=== PATIENT | female | born 1940 | race Caucasian/White ===

== ENCOUNTER 2020-08-04 12:54 | Inpatient (IN) | payer MEDICARE ==
[~2020-08-04] VITALS: Ht 170.2 cm; Wt 85.0 kg
[2020-08-04] MEDS ORDERED: fentaNYL INJECTION 100 MCG/2 ML AMP ONE (12:57)
[2020-08-04] MEDS ORDERED: fentaNYL INJECTION 100 MCG/2 ML AMP IVP ONE ×2 (13:15→14:30)
--- NOTE | 2020-08-04 13:20 | ED Lower Extremity ---
General Chief Complaint: Trauma-Non Activation Stated Complaint: L HIP PAIN Nursing Triage Note: PT TO [facility] 2 BY [facility] WITH CC OF A FALL WHILE WALKING ACROSS THE YARD, LANDING ON GRASS, LANDED ON RT SIDE BUT PAIN IS IN THE LT HIP WITH PAIN RADIATING DOWN TO LT KNEE. DENIES LOC OR ANY OTHER PAIN. ALERT X'S 4. STATES HAVING BOTH OF HER COVID SHOTS. Nursing Sepsis Screen: No Definite Risk Source: patient Exam Limitations: no limitations History of Present Illness Date Seen by Provider: Aug 04, 2020 Time Seen by Provider: 13:00 Initial Comments To ER by [facility] with reports of left hip pain. She slipped on the ice and fell landing on the right hip but actually has left hip pain. She is from [place] but [facility] is on surgery/trauma diversion as they do not have a water supply. She takes no anticoagulation. She has a history of fibromyalgia hypertension and neuropathy. Last oral intake was at 10:30 AM. She is certain she did not hit her head. Onset: just prior to arrival Severity: moderate Pain/Injury Location: left hip Method of Injury: fell Modifying Factors: Worse With Movement Allergies and Home Medications Allergies Coded Allergies: morphine (Verified Allergy, Mild, 08/04/20) divalproex sodium (Verified Allergy, Unknown, 08/04/20) iodine (Verified Allergy, Unknown, 08/04/20) meloxicam (Verified Allergy, Unknown, 08/04/20) rosuvastatin (Verified Allergy, Unknown, 08/04/20) Patient Home Medication List Home Medication List Reviewed: Yes Review of Systems Constitutional: see HPI EENTM: see HPI Respiratory: no symptoms reported Cardiovascular: no symptoms reported Genitourinary: no symptoms reported Musculoskeletal: see HPI Skin: no symptoms reported Psychiatric/Neurological: No Symptoms Reported Past Jmhaodp-Zppssd-Kanbdh Hx Patient Social History Recent Infectious Disease Expo: No Physical Exam Vital Signs Vital Signs - First Documented 08/04/20 13:02 Temp 35.4 Pulse 83 Resp 20 B/P (MAP) 192/100 (130) Pulse Ox 96 O2 Delivery Room Air Capillary Refill : Less Than 3 Seconds Height, Weight, BMI Height: '" Weight: lbs. oz. kg; 26.00 BMI Method: General Appearance: WD/WN, other (alert and oreinted, pleasant) HEENT: PERRL/EOMI, normal ENT inspection Neck: non-tender, full range of motion Respiratory: no respiratory distress, no accessory muscle use Gastrointestinal: normal bowel sounds, non tender Hips: right hip non-tender, right hip normal inspection, right hip normal range of motion; left hip pain, left hip soft tissue tenderness Legs: bilateral leg non-tender, bilateral leg normal inspection, bilateral leg normal range of motion Knees: bilateral knee non-tender, bilateral knee normal inspection, bilateral knee normal range of motion Ankles: bilateral ankle non-tender, bilateral ankle normal inspection, bilateral ankle normal range of motion Feet: bilateral foot non-tender, bilateral foot normal inspection, bilateral foot normal range of motion Neurologic/Psychiatric: alert, normal mood/affect, oriented x 3 Skin: normal color, warm/dry Progress/Results/Core Measures Results/Orders Lab Results Laboratory Tests Test 08/04/20 13:15 Range/Units White Blood Count 8.0 4.3-11.0 10^3/uL Red Blood Count 4.35 3.80-5.11 10^6/uL Hemoglobin 13.5 11.5-16.0 g/dL Hematocrit 39 35-52 % Mean Corpuscular Volume 90 80-99 fL Mean Corpuscular Hemoglobin 31 25-34 pg Mean Corpuscular Hemoglobin Concent 34 32-36 g/dL Red Cell Distribution Width 12.0 10.0-14.5 % Platelet Count 256 130-400 10^3/uL Mean Platelet Volume 10.2 9.0-12.2 fL Immature Granulocyte % (Auto) 1 % Neutrophils (%) (Auto) 64 42-75 % Lymphocytes (%) (Auto) 28 12-44 % Monocytes (%) (Auto) 6 0-12 % Eosinophils (%) (Auto) 1 0-10 % Basophils (%) (Auto) 0 0-10 % Neutrophils # (Auto) 5.1 1.8-7.8 10^3/uL Lymphocytes # (Auto) 2.3 1.0-4.0 10^3/uL Monocytes # (Auto) 0.5 0.0-1.0 10^3/uL Eosinophils # (Auto) 0.1 0.0-0.3 10^3/uL Basophils # (Auto) 0.0 0.0-0.1 10^3/uL Immature Granulocyte # (Auto) 0.0 0.0-0.1 10^3/uL Prothrombin Time 13.4 12.2-14.7 SEC INR Comment 1.0 0.8-1.4 Sodium Level 139 135-145 MMOL/L Potassium Level 3.6 3.6-5.0 MMOL/L Chloride Level 105 98-107 MMOL/L Carbon Dioxide Level 22 21-32 MMOL/L Anion Gap 12 5-14 MMOL/L Blood Urea Nitrogen 11 7-18 MG/DL Creatinine 1.15 0.60-1.30 MG/DL Estimat Glomerular Filtration Rate 45 BUN/Creatinine Ratio 10 Glucose Level 118 H 70-105 MG/DL Calcium Level 8.4 L 8.5-10.1 MG/DL Corrected Calcium 8.7 8.5-10.1 MG/DL Total Bilirubin 0.4 0.1-1.0 MG/DL Aspartate Amino Transf (AST/SGOT) 19 5-34 U/L Alanine Aminotransferase (ALT/SGPT) 10 0-55 U/L Alkaline Phosphatase 76 40-136 U/L Total Protein 6.8 6.4-8.2 GM/DL Albumin 3.6 3.2-4.5 GM/DL My Orders Orders - NEHAL CHÁVEZ APRN Cbc With Automated Diff (08/04/20 13:02) Protime With Inr (08/04/20 13:02) Comprehensive Metabolic Panel (08/04/20 13:02) Sanchez Cath (08/04/20 13:02) Chest 1 View, Ap/Pa Only (08/04/20 13:02) Pelvis With Left Hip 2-3 Views (08/04/20 13:02) Fentanyl Injection (Sublimaze Injection (08/04/20 13:15) Ct Pelvis Wo (08/04/20 13:51) Medications Given in ED Current Medications Medications Dose Ordered Sig/Carli Route Start Time Stop Time Status Last Admin Dose Admin Fentanyl Citrate 50 mcg ONCE ONCE IVP 08/04/20 13:15 08/04/20 13:16 DC 08/04/20 13:09 50 MCG Vital Signs/I&O 08/04/20 08/04/20 13:02 13:09 Temp 35.4 35.4 Pulse 83 Resp 20 B/P (MAP) 192/100 (130) Pulse Ox 96 O2 Delivery Room Air Blood Pressure Mean: 130 Diagnostic Imaging Diagonstic Imaging: Xray Comments NAME: YUMIKO FRANKEL [facility] REC#: [id number] PT STATUS: REG ER : 1940 PHYSICIAN: NEHAL CHÁVEZ APRN ADMIT DATE: 08/04/20/ER Draft Date of Exam:08/04/20 PELVIS WITH LEFT HIP 2-3 VIEWS EXAMINATION: Pelvis and left hip. INDICATION: Hip pain. Single AP view of the pelvis and AP and crosstable lateral views of the left hip were obtained. There are no prior studies available for comparison. There is a slightly displaced fracture of the base of the left femoral neck. There is also a transverse irregular fracture line extending through the greater trochanter of the left femur. No other fracture or acute bony abnormality is appreciated. There is moderate degenerative disease of the hip and sacroiliac joints. The soft tissues are unremarkable for an acute abnormality. There are small orthopedic screws along the medial aspect of the left pubic symphysis and overlying the superior pubic ramus on the right. Surgical clips are also seen overlying the right sacrum. IMPRESSION: 1. There is a slightly displaced fracture of the left femoral neck as well as a transverse slightly displaced fracture of the greater trochanter of the left femur. If further evaluation of the extent of the injury to the femur is desired, then CT would be recommended. 2. There is no acute bony abnormality noted otherwise. 3. These results were discussed with Nehal Chávez APRN. Dictated on workstation # [id number] Dict: 08/04/20 1356 Trans: 08/04/20 1406 [facility] [id number] Interpreted by: WILIAM GONZALEZ MD Electronically signed by: Departure Communication (Admissions) Spoke with Dr. GARCIA, he would like a CT scan. Patient still reports that she landed on the right side. However I would suspect she landed on the left and then rolled to the right side. When EMS found her she was laying on the ice on her right side. Pain is well controlled as long as she does not move. Impression Primary Impression: Closed left hip fracture Disposition: ADMITTED INPATIENT Condition: Stable Admissions Decision to Admit Reason: Admit from ER (General) Decision to Admit/Date: Aug 04, 2020 Time/Decision to Admit Time: 14:15 NEHAL CHÁVEZ APRN Aug 04, 2020 13:20
[2020-08-04 13:34] LABS: BASOPHILS % (AUTO) 0 % (0-10); EOSINOPHILS # (AUTO) 0.1 10^3/uL (0.0-0.3); EOSINOPHILS % (AUTO) 1 % (0-10); HEMATOCRIT 39 % (35-52); HEMOGLOBIN 13.5 g/dL (11.5-16.0); LYMPHOCYTES # (AUTO) 2.3 10^3/uL (1.0-4.0); LYMPHOCYTES % (AUTO) 28 % (12-44); MEAN CORPUSCULAR HEMOGLOBIN 31 pg (25-34); MEAN CORPUSCULAR HGB CONC 34 g/dL (32-36); MEAN CORPUSCULAR VOLUME 90 fL (80-99); MEAN PLATELET VOLUME 10.2 fL (9.0-12.2); MONOCYTES # (AUTO) 0.5 10^3/uL (0.0-1.0); MONOCYTES % (AUTO) 6 % (0-12); NEUTROPHILS # (AUTO) 5.1 10^3/uL (1.8-7.8); NEUTROPHILS % (AUTO) 64 % (42-75); PLATELET COUNT 256 10^3/uL (130-400)
[2020-08-04 13:45] LABS: ALBUMIN 3.6 GM/DL (3.2-4.5); POTASSIUM 3.6 MMOL/L (3.6-5.0); PROTHROMBIN TIME PATIENT 13.4 SEC (12.2-14.7)
[2020-08-04 13:46] LABS: CALCIUM 8.4 MG/DL (8.5-10.1)
[2020-08-04 13:48] LABS: TOTAL PROTEIN 6.8 GM/DL (6.4-8.2)
[2020-08-04 13:49] LABS: BILIRUBIN,TOTAL 0.4 MG/DL (0.1-1.0)
[2020-08-04 13:51] LABS: CREATININE SERUM 1.15 MG/DL (0.60-1.30)
--- NOTE | 2020-08-04 14:00 | Diagnostic Imaging Report ---
INDICATION: Fall, preop for left hip fracture Frontal chest at 0143 p.m. Heart and mediastinal silhouette are normal in appearance. Lungs are clear. There is no pneumothorax or pleural fluid. There is no overt bony abnormality in the chest. IMPRESSION: Negative chest. Dictated by: Dictated on workstation # [id number]
--- NOTE | 2020-08-04 14:06 | Diagnostic Imaging Report ---
EXAMINATION: Pelvis and left hip. INDICATION: Hip pain. Single AP view of the pelvis and AP and crosstable lateral views of the left hip were obtained. There are no prior studies available for comparison. There is a slightly displaced fracture of the base of the left femoral neck. There is also a transverse irregular fracture line extending through the greater trochanter of the left femur. No other fracture or acute bony abnormality is appreciated. There is moderate degenerative disease of the hip and sacroiliac joints. The soft tissues are unremarkable for an acute abnormality. There are small orthopedic screws along the medial aspect of the left pubic symphysis and overlying the superior pubic ramus on the right. Surgical clips are also seen overlying the right sacrum. IMPRESSION: 1. There is a slightly displaced fracture of the left femoral neck as well as a transverse slightly displaced fracture of the greater trochanter of the left femur. If further evaluation of the extent of the injury to the femur is desired, then CT would be recommended. 2. There is no acute bony abnormality noted otherwise. 3. These results were discussed with Cheng Chávez APRN. Dictated by: Dictated on workstation # [id number]
--- NOTE | 2020-08-04 14:24 | Diagnostic Imaging Report ---
PROCEDURE: CT pelvis without contrast. TECHNIQUE: Multiple contiguous axial images were obtained through the pelvis without the use of intravenous contrast. Sagittal and coronal reformations were performed. Auto Exposure Controls were utilized during the CT exam to meet ALARA standards for radiation dose reduction. INDICATION: Fall FINDINGS: There is varus angulation associated with the fracture through the base of the femoral neck extending through the greater trochanter. There is no dislocation of the femoral head. There is osteoarthritic changes to the bilateral hips. Superior-inferior pubic rami and acetabulum intact. The right femoral head and neck nonacute. There is no symphyseal diastases. No intra or extra peritoneal pelvic hematoma. There are arthritic changes to the SI joints. The demineralized sacrum showed no acute or chronic fracture. There is degenerative disease to the visualized lower lumbar spine. The iliac bones are intact. IMPRESSION: Base neck and intertrochanteric left hip fracture with varus angulation without dislocation. No intraperitoneal or extraperitoneal pelvic hematoma. Underlying osteoporosis noted. No other fracture. Dictated by: Dictated on workstation # [id number]
[2020-08-04 16:00] VITALS: BP 179/86
[2020-08-04] MEDS ORDERED: ONDANSETRON 4 MG/2 ML (SDV) Z0FRAN IVP PRN (16:15)
--- NOTE | 2020-08-04 16:52 | History & Physicial ---
History of Present Illness History of Present Illness Reason for visit/HPI Left hip pain after fall Date of Admission Aug 04, 2020 at 14:15 Date Seen by a Provider: Aug 04, 2020 Time Seen by a Provider: 16:47 I consulted on this patient on 08/04/20 16:47 Attending Physician Doris Anderson MD Admitting Physician Dr. Sergey Ferris Consult Allergies and Home Medications Allergies Coded Allergies: morphine (Verified Allergy, Mild, 08/04/20) divalproex sodium (Verified Allergy, Unknown, 08/04/20) iodine (Verified Allergy, Unknown, 08/04/20) meloxicam (Verified Allergy, Unknown, 08/04/20) rosuvastatin (Verified Allergy, Unknown, 08/04/20) Patient Home Medication List Home Medication List Reviewed: Yes (Losartan, Gabapentin, Red yeast rice cap, multi vit, COQ10 gummy, Vit E sup) Past Wsmnbem-Tubvwo-Lheslc Hx Patient Social History Smoking Status: Former Smoker Former Smoker, Quit: Jun 19, 1989 Recent Hopitalizations: No Seasonal Allergies Seasonal Allergies: Yes Surgeries Yes (BLADDER SLING) Abdominal, Bladder Surgery, Gallbladder, Hysterectomy Respiratory No Cardiovascular Yes Deep Vein Thrombosis (history of blood clots), High Cholesterol, Hypertension, Peripheral Vascular (carotid stenosis) Neurological Yes Neuropathy Genitourinary No Gastrointestinal Yes Gastroesophageal Reflux, Irritable Bowel Musculoskeletal Yes Fibromyalgia Endocrine History of Endocrine Disorders: No HEENT History of HEENT Disorders: Yes HEENT Disorders: Cataract Cancer No Psychosocial History of Psychiatric Problem: No Integumentary History of Skin or Integumenta: Yes (DRY SKIN) Review of Systems Constitutional: see HPI (left hip pain) All Other Systems Reviewed Negative Unless Noted: Yes Physical Exam Vital Signs Vital Signs - First Documented 08/04/20 13:02 Temp 35.4 Pulse 83 Resp 20 B/P (MAP) 192/100 (130) Pulse Ox 96 O2 Delivery Room Air Capillary Refill : Less Than 3 Seconds Height, Weight, BMI Height: '" Weight: lbs. oz. kg; 26.00 BMI Method: General Appearance: No No Apparent Distress, No WD/WN, No Anxious, No Chronically ill, No Cachetic, No Mild Distress, No Moderate Distress, No Obese, No Severe Distress, No Thin, No Other Eyes: Bilateral Eye Normal Inspection, Bilateral Eye PERRL, Bilateral Eye EOMI Extremity: Normal Capillary Refill, Normal Inspection, Normal Range of Motion, Non Tender, No Calf Tenderness, No Pedal Edema, Calf Tenderness, Inflammation, Pedal Edema, Pelvis Stable, Slow Capillary Refill, Swelling, Other (TTP left hi p. Nontender throughout midshaft left femur and knee. Intact PF, DF and EHL) Assessment/Plan Assessment and Plan Left femoral neck fracture with trochanteric extension, closed mildly displaced Plan: Left hip bipolar hemiarthroplasty per Dr. Sergey Ferris tomorrow NPO after midnight tonight 1 gram Ancef IV upon call to OR tomorrow morning Risks, benefits, options and ramifications of surgery discussed with patient, she verbalized understanding and wishes to proceed. Admission Diagnosis Admission Status: Inpatient Order (span 2 midnights) Reason for Inpatient Admission: History of hypertension and blood clots (DVT) NAYA OSORIO Aug 04, 2020 16:52
[2020-08-04] MEDS: LACTATED RINGERS 1,000 ML IV SCH (17:12)
[2020-08-04] MEDS: fentaNYL INJECTION 100 MCG/2 ML AMP IVP PRN ×2 (19:37→22:55)
[2020-08-04] MEDS: hydrALAZINE (APESOLINE) 20 MG/ML VIAL IV PRN (19:38)
[2020-08-04 20:00] VITALS: BP 183/87
[2020-08-05] VITALS (14 sets, daily range): BP systolic 109–197; BP diastolic 66–99
[2020-08-05] MEDS: fentaNYL INJECTION 100 MCG/2 ML AMP IVP PRN ×3 (02:08→07:50)
[2020-08-05] MEDS: LACTATED RINGERS 1,000 ML IV SCH ×3 (02:47→21:36)
[2020-08-05] MEDS ORDERED: LOSARTAN 50 MG (COZAAR) TAB PO SCH (09:00)
--- NOTE | 2020-08-05 09:49 | Progress Note-Pre Operative ---
Pre-Operative Progress Note H&P Reviewed The H&P was reviewed, patient examined and no changes noted. Date Seen by Provider: Aug 05, 2020 Time Seen by Provider: 09:49 Date H&P Reviewed: Aug 05, 2020 Time H&P Reviewed: 09:49 Pre-Operative Diagnosis: left femoral neck and greater trochanter fractures MARC GARCIA MD Aug 05, 2020 09:49
--- NOTE | 2020-08-05 09:51 | Progress Note-Post Operative ---
Post-Operative Progess Note Surgeon (s)/[employer] (s) Surgeon MARC GARCIA MD [employer]: Blake Shoemaker Pre-Operative Diagnosis left femoral neck and greater trochanter fractures Post-Operative Diagnosis left femoral neck and greater trochanter fractures Procedure & Operative Findings Date of Procedure 08/05/20 Procedure Performed/Findings left hip bipolar replacement and ORIF of the greater trochanter Anesthesia Type GETA Estimated Blood Loss Estimated blood loss (mL): 375ml Specimens/Packing Specimens Removed femoral head Packing: none MARC GARCIA MD Aug 05, 2020 09:51
[2020-08-05] MEDS ORDERED: ACETAMINOPHEN 325 MG TABLET PO PRN (10:00)
[2020-08-05] MEDS ORDERED: diphenhydrAMINE 50 MG/ML INJ (BENADRYL) IVP PRN (10:00)
[2020-08-05] MEDS ORDERED: fentaNYL INJECTION 100 MCG/2 ML AMP IVP PRN (10:00)
[2020-08-05] MEDS ORDERED: TEMAZEPAM 15 MG (RESTORIL) CAP PO PRN (10:00)
[2020-08-05] MEDS ORDERED: GBPN600T PO ×2 (10:27)
[2020-08-05] MEDS ORDERED: UBID100C17 PO (10:27)
[2020-08-05] MEDS ORDERED: HYLANDS LEG CRAMP PO (10:27)
[2020-08-05] MEDS ORDERED: C,E,1CAP PO (10:27)
[2020-08-05] MEDS ORDERED: CHOL100048 PO (10:27)
[2020-08-05] MEDS ORDERED: LOSA25TA41 PO (10:27)
[2020-08-05] MEDS ORDERED: RED600CA2 PO (10:27)
[2020-08-05] MEDS ORDERED: ceFAZolin INJECTION 1,000 MG in WATER (STERILE) FOR INJECTION 10 ML IV ONE (10:30)
[2020-08-05] MEDS ORDERED: MIDAZOLAM 2 MG/2 ML (VERSED) VIAL ONE (11:06)
[2020-08-05] MEDS ORDERED: proPOfol 200 MG/20 ML (DIPRIVAN) VIAL IV ONE (11:06)
[2020-08-05] MEDS ORDERED: SEVOFLURANE (ULTANE) 15 ML INHAL SOLN ONE (11:06)
[2020-08-05] MEDS ORDERED: LIDOCAINE PF 2% 5 ML (XYLOCAINE) VIAL ONE (11:06)
[2020-08-05] MEDS ORDERED: fentaNYL INJECTION 100 MCG/2 ML AMP ONE ×2 (11:06→12:06)
[2020-08-05] MEDS ORDERED: BUPIVACAINE 0.25% 30 ML (SENSORCAINE) VIAL ONE (11:06)
[2020-08-05] MEDS ORDERED: GLYCOPYRROLATE 0.2 MG/ML (ROBINUL) 2 ML VIAL ONE (11:06)
[2020-08-05] MEDS ORDERED: ONDANSETRON 4 MG/2 ML (SDV) Z0FRAN ONE (11:06)
[2020-08-05] MEDS ORDERED: NEOSTIGMINE 3 MG/3 ML VIAL ONE (11:06)
[2020-08-05] MEDS ORDERED: ROCURONIUM 10 MG/ML 5 ML SYRINGE IV ONE (11:06)
[2020-08-05] MEDS: LACTATED RINGERS 1,000 ML IV PRN ×3 (11:08→13:28)
--- NOTE | 2020-08-05 11:17 | History & Physical-Hospitalist ---
History of Present Illness HPI/Chief Complaint Agustin Thornton is an 80-year-old female with hypertension who is admitted to after a fall on ice. She had gone outside to check a water meter because her pipes were frozen. There is an area with ice where she slipped and fell. She denies any syncope. She denies hitting her head. She denies any lightheadedness or dizziness. She has not had any other falls recently. She broke her pinky about 60 years ago. She is a former smoker and quit smoking 30 years ago. She has hypertension and takes losartan daily. Source: patient Exam Limitations: no limitations Date Seen 08/05/20 Time Seen by a Provider: 09:50 Attending Physician Doris Olguin MD PCP Matty Pizarro MD Referring Physician Date of Admission Aug 04, 2020 at 14:15 Home Medications & Allergies Home Medications Reviewed patient Home Medication Reconciliation performed by pharmacy medication reconciliations rf test technician and/or nursing. Patients Allergies have been reviewed. Allergies Allergies Coded Allergies morphine (Verified Allergy, Mild, 08/04/20) divalproex sodium (Verified Allergy, Unknown, 08/04/20) iodine (Verified Allergy, Unknown, 08/04/20) meloxicam (Verified Allergy, Unknown, 08/04/20) rosuvastatin (Verified Allergy, Unknown, 08/04/20) Past Gieaowx-Asemdw-Jihvkt Hx Past Med/Social Hx: Reviewed Nursing Past Med/Soc Hx Patient Social History Alcohol Use: Denies Use Recreational Drug Use: No Smoking Status: Former Smoker Former Smoker, Quit: Jun 19, 1989 Type Used: Cigarettes Recent Foreign Travel: No Contact w/other who traveled: No Recent Hopitalizations: No Recent Infectious Disease Expo: No Immunizations Up To Date Date of Influenza Vaccine: Mar 04, 2020 Seasonal Allergies Seasonal Allergies: Yes Past Medical History Surgeries: Abdominal, Bladder Surgery, Gallbladder, Hysterectomy Cardiac: Deep Vein Thrombosis (history of blood clots), High Cholesterol, Hypertension, Peripheral Vascular (carotid stenosis) Neurological: Neuropathy Gastrointestinal: Gastroesophageal Reflux, Irritable Bowel Musculoskeletal: Fibromyalgia HEENT: Cataract Review of Systems Constitutional: no symptoms reported EENTM: no symptoms reported Respiratory: no symptoms reported Cardiovascular: no symptoms reported Gastrointestinal: no symptoms reported Genitourinary: no symptoms reported Musculoskeletal: no symptoms reported Skin: no symptoms reported Psychiatric/Neurological: No Symptoms Reported Physical Exam Physical Exam Vital Signs Vital Signs - First Documented 08/04/20 13:02 Temp 35.4 Pulse 83 Resp 20 B/P (MAP) 192/100 (130) Pulse Ox 96 O2 Delivery Room Air Capillary Refill : Less Than 3 SecondsLess Than 3 Seconds Height, Weight, BMI Height: '" Weight: lbs. oz. kg; 29.34 BMI Method: General Appearance: No Apparent Distress, WD/WN HEENT: PERRL/EOMI, Pharynx Normal Neck: Normal Inspection, Supple Respiratory: Lungs Clear, Normal Breath Sounds, No Respiratory Distress Cardiovascular: Regular Rate, Rhythm, No Edema, No Murmur Gastrointestinal: Normal Bowel Sounds, Non Tender, Soft Extremity: Normal Inspection; No Non Tender; No Pedal Edema Neurologic/Psychiatric: Alert, Oriented x3, No Motor/Sensory Deficits, Normal Mood/Affect Skin: Normal Color, Warm/Dry Results Results/Procedures Labs Laboratory Tests 08/04/20 13:15 Patient resulted labs reviewed. Imaging: Reviewed Imaging Report Assessment/Plan Admission Diagnosis Left hip fracture Admission Status: Inpatient Order (span 2 midnights) Reason for Inpatient Admission: Hip fracture requiring surgical repair Assessment and Plan Closed left hip fracture Fall from slipping on ice XR revealed left femoral neck and greater trochanteric fractures Orthopedic surgery consulted, appreciate assistance Dr. Ferris planning for surgery today Pain regimen ordered Bowel regimen ordered PT/OT IRF evaluation HTN Losartan DVT prophylaxis: Lovenox Diagnosis/Problems Diagnosis/Problems (1) Closed left hip fracture Status: Acute Qualifiers: Encounter type: initial encounter Qualified Codes: S72.002A - Fracture of unspecified part of neck of left femur, initial encounter for closed fracture (2) Fall from slipping on ice Status: Acute Qualifiers: Encounter type: initial encounter Qualified Codes: W00.9XXA - Unspecified fall due to ice and snow, initial encounter (3) HTN (hypertension) Status: Chronic Qualifiers: Hypertension type: essential hypertension Qualified Codes: I10 - Essential (primary) hypertension DORIS OLGUIN MD Aug 05, 2020 11:16
[2020-08-05] MEDS ORDERED: polyethylene glycoL POWDER 17 GM (MIRALAX) PACK PO PRN (11:30)
[2020-08-05] MEDS ORDERED: ceFAZolin INJECTION 1,000 MG ONE (11:34)
[2020-08-05] MEDS ORDERED: fentaNYL INJECTION 100 MCG/2 ML AMP IVP ONE (13:00)
[2020-08-05] MEDS ORDERED: MEPERIDINE (DEMEROL) INJ 50 MG/ML IVP ONE (13:00)
[2020-08-05] MEDS ORDERED: ONDANSETRON 4 MG/2 ML (SDV) Z0FRAN IVP PRN (13:00)
[2020-08-05] MEDS ORDERED: ISOFLURANE (FORANE) 15 ML/15 MIN INHALATION ONE (14:01)
--- NOTE | 2020-08-05 14:33 | Diagnostic Imaging Report ---
INDICATION: Postop hip replacement. COMPARISON: 08/04/2020. FINDINGS: Single AP view of the left hip was obtained. There are expected postsurgical changes of interval left hip hemiarthroplasty. There is appropriate anatomic alignment of the femoral component in relation to the acetabulum. The stem of the femoral component is located centrally in the medullary cavity. Cerclage device is also noted. There is no periprosthetic fracture. No acute fracture or dislocation is identified. There is a small amount of subcutaneous emphysema in the surrounding soft tissues. No unexpected radiopaque foreign bodies identified. IMPRESSION: Expected postsurgical changes of interval left hip hemiarthroplasty. No unexpected radiopaque foreign body identified. Dictated by: Dictated on workstation # [id number]
--- NOTE | 2020-08-05 15:50 | Physical Therapy Evaluation ---
PT Evaluation-General Medical Diagnosis Admission Date Aug 04, 2020 at 14:15 Medical Diagnosis: left femoral neck and greater trochanter fractures Onset Date: Aug 04, 2020 Therapy Diagnosis Therapy Diagnosis: impaired mobility, strength, endurance Precautions Precautions/Isolations: Fall Prevention, Standard Precautions Weight Bear Status There are no orders for weight bearing status so NWB was used for this eval. Referral Physician: Navid Reason for Referral: Evaluation/Treatment Medical History Additional Medical History Surgeries Yes (BLADDER SLING) Abdominal, Bladder Surgery, Gallbladder, Hysterectomy Respiratory No Cardiovascular Yes Deep Vein Thrombosis (history of blood clots), High Cholesterol, Hypertension, Peripheral Vascular (carotid stenosis) Neurological Yes Neuropathy Genitourinary No Gastrointestinal Yes Gastroesophageal Reflux, Irritable Bowel Musculoskeletal Yes Fibromyalgia Endocrine History of Endocrine Disorders: No HEENT History of HEENT Disorders: Yes HEENT Disorders: Cataract Cancer No Psychosocial History of Psychiatric Problem: No Integumentary History of Skin or Integumenta: Yes (DRY SKIN) Reviewed History: Yes Social History Home: Single Level Current Living Status: Spouse Entry Into Home: Stairs With Railing PT Steps Into Home: 5 Prior Prior Level of Function SCALE: Activities may be completed with or without assistive devices. 3-Uklderkmkk-wwuljbj completes the activity by him/herself with no assistance from a helper. 5-Set-up or Clean-up Assistance-helper sets up or cleans up; patient completes activity. [place] assists only prior to or following the activity. 4-Supervision or Touching Assistance-helper provides verbal cues and/or touching/steadying and/or contact guard assistance as patient completes activity. Assistance may be provided throughout the activity or intermittently. 3-Partial/Moderate Assistance-helper does LESS THAN HALF the effort. [place] l ifts, holds or supports trunk or limbs, but provides less than half the effort. 2-Substantial/Maximal Assistance-helper does MORE THAN HALF the effort. [place] lifts or holds trunk or limbs and provides more than half the effort. 8-Iykvnsbpt-advnnu does ALL the effort. Patient does none of the effort to complete the activity. Or, the assistance of 2 or more helpers is required for t he patient to complete the activity. If activity was not attempted, code reason: 7-Patient Refused. 9-Not Applicable-not attempted and the patient did not perform the activity before the current illness, exacerbation or injury. 10-Not Attempted due to Environmental Limitations-(lack of equipment, weather restraints, etc.). 88-Not Attempted due to Medical Conditions or Safety Concerns. Bed Mobility: 6 Transfers (B,C,W/C): 6 Gait: 6 Stairs: 6 Indoor Mobility (Ambulation): Independent Stairs: Independent PT Evaluation-Current Subjective Patient in bed pre tx, agrees to PT, has no pain at rest but is very drowsy, confused, lethargic. Pt/Family Goals none stated Objective Patient Orientation: Person, Confused, Situation, Mumbles Attachments: SCD's, IV Sensory Hearing: Functional Transfers Roll Left to Right (QC): 3 Sit to Lying (QC): 3 Lying to Sitting/Side of Bed(Q: 3 Sit to Stand (QC): 3 Patient performed supine <-> sit with mod assist, sit to stand min assist. Patient was able to take a few sidesteps toward the head of the bed with CGA and with NWB on the left side, she was able to scoot up in bed without assist after laying down. Gait Does the Patient Walk?: Yes Mode of Locomotion: Walk Anticipated Mode of Locomotion: Walk Distance: 2' Gait Assistive Device: FWW Comments/Gait Description antalgic, doesn't actually take a step but twists foot to slide across the floor. Balance Sitting Static: Fair Sitting Dynamic: Fair Standing Static: Fair Standing Dynamic: Fair Assessment/Needs Patient has impaired mobility, strength, endurance. She is very lethargic and tired, she had surgery this afternoon. Patient in bed post tx with nurse call, phone, tray, all needs met. Rehab Potential: Fair PT Correction Goals [facility] Goals PT [facility] Goals Time Frame: Aug 12, 2020 Roll Left & Right (QC): 6 Sit to Lying (QC): 4 Lying-Sitting on Side/Bed(QC): 4 Sit to Stand (QC): 4 Chair/Vcs-gp-Kmnoy Xfer(QC): 4 Walk 10 feet (QC): 4 Walk 50ft with 2 Turns (QC): 4 PT Plan Problem List Problem List: Activity Tolerance, Functional Strength, Safety, Balance, Gait, Transfer, Bed Mobility, ROM Treatment/Plan Treatment Plan: Continue Plan of Care Treatment Plan: Bed Mobility, Education, Functional Activity Papa, Functional Strength, Gait, Safety, Therapeutic Exercise, Transfers Treatment Duration: Aug 12, 2020 Frequency: 11 times per week Estimated Hrs Per Day: .25 hour per day Patient and/or Family Agrees t: Yes Safety Risks/Education Patient Education: Gait Training, Transfer Techniques, Correct Positioning, Safety Issues Teaching Recipient: Patient Teaching Methods: Demonstration, Discussion Response to Teaching: Reinforcement Needed Discharge Recommendations Plan Patient will perform bed mobility and transfer training, balance and endurance training, functional strengthening, stair training, gait training, and education, to improve functional mobility and independence at home. Therapy Discharge Recommendati: Home & Family, Post Acute PT Time/GCodes Time In: 1526 Time Out: 1543 Total Billed Treatment Time: 17 Total Billed Treatment 1 visit STAN VALDOVINOS PT Aug 05, 2020 15:50
[2020-08-05] MEDS: CEFUROXIME INJECTION 750 MG in WATER (STERILE) FOR INJECTION 10 ML IV SCH (18:29)
--- NOTE | 2020-08-05 18:34 | OPERATIVE REPORT ---
DATE OF SERVICE: 08/05/2020 PREOPERATIVE DIAGNOSES: 1. Left femoral neck fracture. 2. Left greater trochanter fracture. POSTOPERATIVE DIAGNOSES: 1. Left femoral neck fracture. 2. Left greater trochanter fracture. PROCEDURES PERFORMED: 1. Left hip bipolar replacement. 2. Open reduction and internal fixation of the left greater trochanter. SURGEON: Sergey Garcia MD FOREIGN EXCHANGE POSITION CLERK: Blake Shoemaker, who assisted throughout the procedure and closed the incision. ANESTHESIA: General endotracheal by Blake Kumar CRNA. ESTIMATED BLOOD LOSS: 375 mL. DRAINS: None. COMPLICATIONS: None. POSTOPERATIVE PLAN: Weightbearing as tolerated left lower extremity with hip precautions. MATERIALS: 1. Link press fit 15 stem with a standard head 44 liner and +3.5 neck. 2. Synthes cable claw system. STATEMENT OF MEDICAL NECESSITY: The patient is an 80-year-old female who presented to the emergency room with left hip pain. She was found to have a subcapital femoral neck fracture with a fracture that extended into the greater trochanter. The patient was counseled that this is a difficult fracture to treat. Due to her ambulatory status and desire to maintain her independent activities, the patient elected to proceed with surgical intervention. DESCRIPTION OF PROCEDURE: After risks and benefits of procedure were discussed and questions were answered, informed consent was signed and placed on chart, the operative site was confirmed in the preoperative holding area initialed by the surgeon. The patient was then transferred to the operating room and after adequate levels of general endotracheal anesthetic were obtained, a timeout was called, confirming the operative site. The patient was carefully placed in the right lateral decubitus position, being careful to place an axillary roll and pad all bony prominences. The left hip and lower extremity were prepped and draped in the usual sterile fashion. A lateral approach was utilized. Hemostasis was obtained with cautery. The iliotibial band was incised in line with the incision. The abductor tendon was released leaving a 2 cm cuff for later reattachment. The capsule was opened and there was a large greater trochanteric fracture, which extended to just above the level of the lesser trochanter, but just involve the greater trochanter did not extend across in an intertrochanteric fashion. In addition, there was a small butterfly fragment of the greater trochanter anteriorly. The gluteal attachments to the greater trochanter fracture were left intact. The femoral head was removed and sized to a size 44. The acetabulum was irrigated. No loose bodies were noted. The femur was then prepared with sequential broaches after using a T-handle reamer. A 15 broach provided excellent fill. This was then trialled with the +3.5 and 44 liner and found to be stable in all planes with no impingement noted. The trials were removed. The joint was irrigated again copiously with pulse lavage. The 15 press-fit stem was then placed in 15 degrees of anteversion and felt to be in excellent position. This was then retrialed with a +3.5 offset and a 44 liner. Hip was reduced and found to be stable in all planes with no impingement noted. No instability was removed. The trail was removed. Joint was further irrigated and the proximal stem was irrigated and dried and the head liner construct was placed. The acetabulum was inspected for any loose bodies. The hip was reduced, again found to be stable in all planes with no impingement noted. A Synthes cable construct was then placed over the greater trochanter, leaving the gluteal attachments intact. 3 cables were then passed distal to the lesser trochanter and through the o'clock construct with anatomic alignment of the greater trochanter obtained. The cables were tensioned and then cut after cramping them. The hip was taken through range of motion and found to be stable in all planes with no impingement noted in the greater trochanter fragment was stable and under direct visualization appeared to be in anatomic position. This was stressed and found to be stable in all planes of motion. The wound was further irrigated with pulse lavage. A total of 4 liters were used throughout the procedure. The capsule and abductors were reapproximated with #5 Tevdek in iabfjq-mm-mqypc interrupted fashion. These were passed through the claw construct with an excellent repair obtained. The wound was further irrigated. The iliotibial band was closed in a running fashion with #1 Vicryl. Subcutaneous tissues were irrigated. A 0 Vicryl was used to deep subcutaneous tissue, 2-0 Vicryl for the superficial subcutaneous tissue, baltazar used on the skin. The incision was infiltrated with plain Marcaine. A soft dressing was applied. A regional block was placed by anesthesia and the patient was transferred to the recovery room awake and in stable condition. Job ID: [id number] DocumentID: [id number] Dictated Date: 08/05/2020 13:48:34 Skiver Box Toe Date: 08/05/2020 18:33:56 Dictated By: SERGEY GARCIA MD
[2020-08-05] MEDS: SENNOSIDES 8.6 MG (SENOKOT) TAB PO SCH (19:47)
[2020-08-05] MEDS: DOCUSATE SODIUM 100 MG (COLACE) CAP PO SCH (19:47)
[2020-08-06] VITALS (7 sets, daily range): BP systolic 135–185; BP diastolic 60–82
[2020-08-06] MEDS: HYDROcodone/APAP 7.5 MG/325 MG (LORTAB, LORCET PLUS) TABLET PO PRN ×3 (01:41→13:47)
[2020-08-06] MEDS: CEFUROXIME INJECTION 750 MG in WATER (STERILE) FOR INJECTION 10 ML IV SCH (02:03)
[2020-08-06 05:12] LABS: HEMOGLOBIN 10.4 g/dL (11.5-16.0)
[2020-08-06 05:20] LABS: CHLORIDE 105 MMOL/L (98-107); POTASSIUM 3.9 MMOL/L (3.6-5.0); SODIUM 135 MMOL/L (135-145)
[2020-08-06 05:22] LABS: GLUCOSE 120 MG/DL (70-105)
[2020-08-06 05:23] LABS: CARBON DIOXIDE 21 MMOL/L (21-32)
[2020-08-06 05:26] LABS: BUN/CREATININE RATIO 17; CREATININE SERUM 0.84 MG/DL (0.60-1.30); GFR ESTIMATED > 60
[2020-08-06] MEDS: MULTIVIT W/MINERALS TAB (THERAGRAN M) PO SCH (06:32)
--- NOTE | 2020-08-06 06:56 | Anesthesia-General Post-Op ---
General Patient Condition Mental Status/LOC: Same as Preop Cardiovascular: Satisfactory Nausea/Vomiting: Absent Respiratory: Satisfactory Pain: Controlled Complications: Absent Post Op Complications Complications None Follow Up Care/Instructions Patient Instructions None needed. Anesthesia/Patient Condition Patient Condition Patient is doing well, no complaints, stable vital signs, no apparent adverse anesthesia problems. No complications reported per nursing. MARC LANDERS CRNA Aug 06, 2020 06:56
--- NOTE | 2020-08-06 07:52 | Progress Note ---
Standard Progress Note Progress Notes/Assess & Plan Date Seen by a Provider: Aug 06, 2020 Time Seen by a Provider: 07:50 Progress/Assessment & Plan no complaints Radiographs--HW well positioned and fracture well aligned Vital Signs Date Time Temp Pulse Resp B/P (MAP) Pulse Ox O2 Delivery O2 Flow Rate FiO2 08/06/20 04:36 36.7 103 20 169/80 (109) 95 Room Air 08/06/20 00:00 36.4 93 18 169/82 (111) 92 Room Air 08/05/20 20:20 Room Air 08/05/20 20:03 94 Room Air 08/05/20 20:00 36.5 97 18 154/73 (100) 95 Room Air 0.00 08/05/20 16:04 35.7 94 18 163/75 (104) 95 Room Air 08/05/20 15:00 35.8 97 18 173/69 (103) 93 Room Air 08/05/20 14:50 36.4 16 171/76 (107) 94 OxyMask 2 08/05/20 14:50 Room Air 08/05/20 14:40 OxyMask 2 08/05/20 14:40 18 160/77 (104) 96 OxyMask 2 08/05/20 14:30 16 170/76 (107) 95 OxyMask 4 08/05/20 14:30 OxyMask 4 08/05/20 14:20 15 163/89 (113) 97 OxyMask 6 08/05/20 14:20 OxyMask 6 08/05/20 14:10 OxyMask 8 08/05/20 14:10 16 149/99 (116) 100 OxyMask 8 08/05/20 13:58 OxyMask 10 08/05/20 13:58 36.4 21 143/70 (94) 99 OxyMask 10 08/05/20 09:15 93 184/79 (114) 08/05/20 08:00 Room Air I & O 08/06/20 07:00 Intake Total 3360 ml Output Total 1150 ml Balance 2210 ml Laboratory Tests Test 08/06/20 04:52 Range/Units Hemoglobin 10.4 #L 11.5-16.0 g/dL Hematocrit 30 L 35-52 % Sodium Level 135 135-145 MMOL/L Potassium Level 3.9 3.6-5.0 MMOL/L Chloride Level 105 98-107 MMOL/L Carbon Dioxide Level 21 21-32 MMOL/L Anion Gap 9 5-14 MMOL/L Blood Urea Nitrogen 14 7-18 MG/DL Creatinine 0.84 0.60-1.30 MG/DL Estimat Glomerular Filtration Rate > 60 BUN/Creatinine Ratio 17 Glucose Level 120 H 70-105 MG/DL Calcium Level 8.0 L 8.5-10.1 MG/DL LLE--dressing intact. intact DF and PF of toes and ankle. 2 plus DP pulse with brisk cap refill s/p L hip bipolar and ORIF PT/OT IRU? MARC GARCIA MD Aug 06, 2020 07:52
[2020-08-06] MEDS: SENNOSIDES 8.6 MG (SENOKOT) TAB PO SCH ×2 (08:25→20:02)
[2020-08-06] MEDS: DOCUSATE SODIUM 100 MG (COLACE) CAP PO SCH ×2 (08:25→20:02)
[2020-08-06] MEDS: ENOXAPARIN 40 MG/0.4 ML (LOVENOX) SYR SC SCH (08:26)
--- NOTE | 2020-08-06 09:14 | Occupational Therapy Eval ---
OT Evaluation-General/PLF Medical Diagnosis Admission Date Aug 04, 2020 at 14:15 Medical Diagnosis: left femoral neck and greater trochanter fractures Onset Date: Aug 04, 2020 Therapy Diagnosis Therapy Diagnosis: decreased ADL stauts Precautions Precautions/Isolations: Fall Prevention, Standard Precautions Comments Hip Precautions Referral Physician: Navid Referral Reason: Evaluation/Treatment Medical History Pertinent Medical History: GERD, HTN, Neuropathy, PVD Additional Medical History DVT, high cholesterol Current History L hip fx due to fall on ice. s/p bipolar hemiarthroplasty. Social History Home: Single Level Current Living Status: Spouse Entry Into Home: Stairs With Railing Steps Into Home: 5 ADL-Prior Level of Function SCALE: Activities may be completed with or without assistive devices. 9-Bxczodqdrt-tkjfmzf completes the activity by him/herself with no assistance from a helper. 5-Set-up or Clean-up Assistance-helper sets up or cleans up; patient completes activity. [place] assists only prior to or following the activity. 4-Supervision or Touching Assistance-helper provides verbal cues and/or touching/steadying and/or contact guard assistance as patient completes activity. Assistance may be provided throughout the activity or intermittently. 3-Partial/Moderate Assistance-helper does LESS THAN HALF the effort. [place] lifts, holds or supports trunk or limbs, but provides less than half the effort. 2-Substantial/Maximal Assistance-helper does MORE THAN HALF the effort. [place] lifts or holds trunk or limbs and provides more than half the effort. 2-Ssnyhxfkc-ltwsst does ALL the effort. Patient does none of the effort to complete the activity. Or, the assistance of 2 or more helpers is required for the patient to complete the activity. If activity was not attempted, code reason: 7-Patient Refused. 9-Not Applicable-not attempted and the patient did not perform the activity before the current illness, exacerbation or injury. 10-Not Attempted due to Environmental Limitations-(lack of equipment, weather restraints, etc.). 88-Not Attempted due to Medical Conditions or Safety Concerns. ADL PLOF Comments Pt reports independent with all I/ADLs at PLOF, and independent with functional mobility without AD. Self Care: Independent Functional Cognition: Independent OT Current Status Subjective Pt laying in bed, nurse present giving pt medication. Current Dentures/Partials: No Hand Dominance: Right Upper Extremity ROM WFL, BUE shoulder flexion to approx 150 degrees. Able to touch back of head with hands. Upper Extremity Coordination WFL Upper Extremity Sensation WFL, pt reports some tingling in R hand at night when she is sleeping. Upper Extremity Strength grossly 4/5 ADL-Treatment Eating (QC): 6 (Pt able to take medicine and bring cup from tray table to mouth independently.) Oral Hygiene (QC): 7 (Pt declined oral care) Shower/Bathe Self (QC): 7 (Pt declined showering/sponge bath as she had used a bath pack to wash upper body yesterday.) On/Off Footwear (QC): 1 (Based on clinical judgement and hip precautions, pt would require total assistance with task.) Other Treatments Pt laying in bed, OT educated pt on purpose and benefit of OT. Pt able to take medication provided by nurse independently. Pt then provided information about PLOF and home set up, and participated in UE screen. OT educated pt on hip precaution. OT encouraged pt to complete self care items, but pt declined. OT educated pt on UE exercises in order to increase activity tolerance and BUE strength. Pt completed x15 reps each of the following BUES: shoulder flexion, elbow flexion, & elbow extension. OT instructed pt to complete throughout the day, increasing reps as tolerated, she verbalized understanding. OT educated pt on how to use bed rails to pull self up towards HOB, pt able to complete with min A. Pt then able to recall 1/3 hip precautions, OT again educated pt on all hip precautions. Post tx, pt laying in bed, call light in reach and all needs met. Education OT Patient Education: Correct positioning, Energy conservation, Exercise program, Modified ADL techniques, Progress toward Goal/Update tx plan, Purpose of tx/functional activities, Reviewed precautions, Rehab process Teaching Recipient: Patient Teaching Methods: Discussion Response to Teaching: Verbalize Understanding, Reinforcement Needed OT Usp Goals Medical Referral Coordinator Goals Time Frame: Aug 14, 2020 Eating (QC): 6 Oral Hygiene (QC): 6 Toileting Hygiene (QC): 4 Shower/Bathe Self (QC): 4 Upper Body Dressing (QC): 5 Lower Body Dressing (QC): 4 On/Off Footwear (QC): 5 Additional Goals: 1-Demonstrate ADL Tasks, 2-Verbalize Understanding, 3- ImproveStrength/Papa 1=Demonstrate adherence to instructed precautions during ADL tasks. 2=Patient will verbalize/demonstrate understanding of assistive devices/modifications for ADL. 3=Patient will improve strength/tolerance for activity to enable patient to perform ADL's. OT Education/Plan Problem List/Assessment Assessment: Decreased Activ Tolerance, Decreased UE Strength, Impaired Bed Mobility, Impaired I ADL's, Impaired Self-Care Skills Discharge Recommendations Plan/Recommendations: Continue POC Therapy Discharge Recommendati: Post Acute OT Treatment Plan/Plan of Care Patient would benefit from OT for education, treatment and training to promote independence in ADL's, mobility, safety and/or upper extremity function for ADL's. Plan of Care: ADL Retraining, Functional Mobility, UE Funct Exercise/Act Treatment Duration: Aug 14, 2020 Frequency: 5 times per week Estimated Hrs Per Day: .25 hour per day Rehab Potential: Fair Time/GCodes Start Time: 08:26 Stop Time: 08:44 Total Time Billed (hr/min): 18 Billed Treatment Time 1, GINNA AMAYA OT Aug 06, 2020 09:14
[2020-08-06] MEDS: LOSARTAN 100 MG (COZAAR) TABLET PO SCH (09:31)
--- NOTE | 2020-08-06 09:58 | Physical Therapy Daily Note ---
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 Appearance Patient in recliner post tx with nurse call, phone, tray, all needs met, legs elevated. Mental Status Patient Orientation: Person, Place, Situation Attachments: IV Transfers SCALE: Activities may be completed with or without assistive devices. 9-Xuxopulewr-iifegta completes the activity by him/herself with no assistance from a helper. 5-Set-up or Clean-up Assistance-helper sets up or cleans up; patient completes activity. [place] assists only prior to or following the activity. 4-Supervision or Touching Assistance-helper provides verbal cues and/or touching/steadying and/or contact guard assistance as patient completes activity. Assistance may be provided throughout the activity or intermittently. 3-Partial/Moderate Assistance-helper does LESS THAN HALF the effort. [place] lifts, holds or supports trunk or limbs, but provides less than half the effort. 2-Substantial/Maximal Assistance-helper does MORE THAN HALF the effort. [place] lifts or holds trunk or limbs and provides more than half the effort. 9-Hzikqzaip-qpydqr does ALL the effort. Patient does none of the effort to complete the activity. Or, the assistance of 2 or more helpers is required for the patient to complete the activity. If activity was not attempted, code reason: 7-Patient Refused. 9-Not Applicable-not attempted and the patient did not perform the activity before the current illness, exacerbation or injury. 10-Not Attempted due to Environmental Limitations-(lack of equipment, weather restraints, etc.). 88-Not Attempted due to Medical Conditions or Safety Concerns. Roll Left & Right (QC): 3 Lying to Sitting/Side of Bed(Q: 3 Sit to Stand (QC): 4 Chair/Zgf-us-Pizcs Xfer(QC): 4 Weight Bearing Weight Bearing/Tolerated There are no orders for weight bearing status so NWB was used for this eval. 08/06/20 patient is WBAT on left leg Gait Training Distance: 6' Gait Persons Needed: 1 Gait Assistive Device: FWW slow, antalgic, but able to bear weight on left leg and take small steps with it Exercises Supine Ex: Quad Set Supine Reps: 15 (done in recliner with legs elevated) Seated Therapy Exercises: Ankle pumps, Long arc quads Seated Reps: 15 Treatments LE exercise, bed mobility and transfers, ambulation Assessment Current Status: Fair Progress Patient was able to bear weight on left leg and ambulate a short distance PT Bench Chemist Goals Bench Chemist Goals PT [facility] Goals Time Frame: Aug 12, 2020 Roll Left & Right (QC): 6 Sit to Lying (QC): 4 Lying-Sitting on Side/Bed(QC): 4 Sit to Stand (QC): 4 Chair/Gzi-oz-Bweza Xfer(QC): 4 Walk 10 feet (QC): 4 Walk 50ft with 2 Turns (QC): 4 PT Plan Problem List Problem List: Activity Tolerance, Functional Strength, Safety, Balance, Gait, Transfer, Bed Mobility, ROM Treatment/Plan Treatment Plan: Continue Plan of Care Treatment Plan: Bed Mobility, Education, Functional Activity Papa, Functional Strength, Gait, Safety, Therapeutic Exercise, Transfers Treatment Duration: Aug 12, 2020 Frequency: 11 times per week Estimated Hrs Per Day: .25 hour per day Patient and/or Family Agrees t: Yes Safety Risks/Education Patient Education: Gait Training, Transfer Techniques, Correct Positioning, Safety Issues Teaching Recipient: Patient Teaching Methods: Demonstration, Discussion Response to Teaching: Reinforcement Needed Time/GCodes Time In: 934 Time Out: 946 Total Billed Treatment Time: 12 Total Billed Treatment 1 visit FA 12' STAN TORRES PT Aug 06, 2020 09:58
[2020-08-06] MEDS: ASPIRIN E.C. 81 MG (ECOTRIN) TAB PO SCH (11:00)
--- NOTE | 2020-08-06 12:09 | Progress Note - Hospitalist ---
Subjective HPI/CC On Admission Date Seen by Provider: Aug 06, 2020 Time Seen by Provider: 10:05 Agustin Thornton is an 80-year-old female with hypertension who is admitted to after a fall on ice. She had gone outside to check a water meter because her pipes were frozen. There is an area with ice where she slipped and fell. She denies any syncope. She denies hitting her head. She denies any lightheadedness or dizziness. She has not had any other falls recently. She broke her pinky about 60 years ago. She is a former smoker and quit smoking 30 years ago. She has hypertension and takes losartan daily. Subjective/Events-last exam She is doing well. She has no complaints. She is sitting in her chair. She has not had a bowel movement yet. She has worked with PT twice. She is not having fevers, shortness of breath, or any significant pain. Objective Exam Vital Signs Vital Signs Date Time Temp Pulse Resp B/P (MAP) Pulse Ox O2 Delivery O2 Flow Rate FiO2 08/06/20 08:00 36.7 94 16 175/75 (108) 96 Room Air 08/05/20 20:00 0.00 Capillary Refill : Less Than 3 SecondsLess Than 3 Seconds General Appearance: No Apparent Distress, WD/WN Respiratory: Lungs Clear, Normal Breath Sounds, No Respiratory Distress Cardiovascular: Regular Rate, Rhythm, No Edema, No Murmur Gastrointestinal: Normal Bowel Sounds, Non Tender, Soft Extremity: Normal Inspection, Non Tender, No Pedal Edema Neurologic/Psychiatric: Alert, Oriented x3, No Motor/Sensory Deficits, Normal Mood/Affect Skin: Normal Color, Warm/Dry Results/Procedures Lab Laboratory Tests 08/06/20 04:52 Patient resulted labs reviewed. Imaging: Reviewed Imaging Report Assessment/Plan Assessment and Plan Assess & Plan/Chief Complaint Closed left hip fracture Fall from slipping on ic Orthopedic surgery consulted, appreciate assistance Dr. Ferris performed surgery 08/05 Pain regimen ordered Bowel regimen ordered PT/OT IRF evaluation, awaiting approval HTN Increase Losartan DVT prophylaxis: Lovenox Diagnosis/Problems Diagnosis/Problems (1) Closed left hip fracture Status: Acute Qualifiers: Encounter type: initial encounter Qualified Codes: S72.002A - Fracture of unspecified part of neck of left femur, initial encounter for closed fracture (2) Fall from slipping on ice Status: Acute Qualifiers: Encounter type: initial encounter Qualified Codes: W00.9XXA - Unspecified fall due to ice and snow, initial encounter (3) HTN (hypertension) Status: Chronic Qualifiers: Hypertension type: essential hypertension Qualified Codes: I10 - Essential (primary) hypertension RENETTA OLGUIN MD Aug 06, 2020 12:09
--- NOTE | 2020-08-06 13:55 | Physical Therapy Daily Note ---
PT Daily Note-Current Subjective Patient in recliner pre tx, agrees to PT, has 4/10 pain in left hip. Appearance Patient in bed post tx with nurse call, phone, tray, all needs met, wedge donned. Mental Status Patient Orientation: Person, Place, Situation Attachments: Sanchez Catheter Transfers SCALE: Activities may be completed with or without assistive devices. 2-Rlkyfdtuhb-dfyddpr completes the activity by him/herself with no assistance from a helper. 5-Set-up or Clean-up Assistance-helper sets up or cleans up; patient completes activity. [place] assists only prior to or following the activity. 4-Supervision or Touching Assistance-helper provides verbal cues and/or touching/steadying and/or contact guard assistance as patient completes activity. Assistance may be provided throughout the activity or intermittently. 3-Partial/Moderate Assistance-helper does LESS THAN HALF the effort. [place] lifts, holds or supports trunk or limbs, but provides less than half the effort. 2-Substantial/Maximal Assistance-helper does MORE THAN HALF the effort. [place] lifts or holds trunk or limbs and provides more than half the effort. 4-Uhbatooqf-eplhzx does ALL the effort. Patient does none of the effort to complete the activity. Or, the assistance of 2 or more helpers is required for the patient to complete the activity. If activity was not attempted, code reason: 7-Patient Refused. 9-Not Applicable-not attempted and the patient did not perform the activity before the current illness, exacerbation or injury. 10-Not Attempted due to Environmental Limitations-(lack of equipment, weather restraints, etc.). 88-Not Attempted due to Medical Conditions or Safety Concerns. Roll Left & Right (QC): 3 Sit to Lying (QC): 3 Sit to Stand (QC): 3 Chair/Qro-dq-Glsmq Xfer(QC): 4 Weight Bearing Weight Bearing/Tolerated There are no orders for weight bearing status so NWB was used for this eval. 08/06/20 patient is WBAT on left leg Gait Training Distance: 20' Walk 10 feet (QC): 4 Gait Persons Needed: 1 Gait Assistive Device: FWW 20' with CGA, cues for positioning, better step through on left side Exercises Supine Ex: Ankle pumps, Quad Set, Glut sets, Heel Slides, Short Arc Quads Supine Reps: 15 Treatments bed mobility and transfers, ambulation, LE exercise Assessment Current Status: Fair Progress improved ambulation PT Commercial Crabber Goals Longterm Goals PT Commercial Crabber Goals Time Frame: Aug 12, 2020 Roll Left & Right (QC): 6 Sit to Lying (QC): 4 Lying-Sitting on Side/Bed(QC): 4 Sit to Stand (QC): 4 Chair/Vlg-ii-Fogno Xfer(QC): 4 Walk 10 feet (QC): 4 Walk 50ft with 2 Turns (QC): 4 PT Plan Problem List Problem List: Activity Tolerance, Functional Strength, Safety, Balance, Gait, Transfer, Bed Mobility, ROM Treatment/Plan Treatment Plan: Continue Plan of Care Treatment Plan: Bed Mobility, Education, Functional Activity Papa, Functional Strength, Gait, Safety, Therapeutic Exercise, Transfers Treatment Duration: Aug 12, 2020 Frequency: 11 times per week Estimated Hrs Per Day: .25 hour per day Patient and/or Family Agrees t: Yes Safety Risks/Education Patient Education: Gait Training, Transfer Techniques, Correct Positioning, Safety Issues Teaching Recipient: Patient Teaching Methods: Demonstration, Discussion Response to Teaching: Reinforcement Needed Time/GCodes Time In: 1320 Time Out: 1334 Total Billed Treatment Time: 14 Total Billed Treatment 1 visit FA STAN DELGADO PT Aug 06, 2020 13:55
[2020-08-06] MEDS: hydrALAZINE (APESOLINE) 20 MG/ML VIAL IV PRN (16:09)
[2020-08-06] MEDS: ONDANSETRON 4 MG/2 ML (SDV) Z0FRAN IVP PRN (16:09)
[2020-08-06] MEDS: CALCIUM CARBONATE 500 MG (TUMS) TAB.CHEW PO PRN (17:09)
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
[2020-08-07] VITALS: BP 160/74
[2020-08-07] MEDS: HYDROcodone/APAP 7.5 MG/325 MG (LORTAB, LORCET PLUS) TABLET PO PRN ×2 (01:26→08:30)
[2020-08-07] MEDS: CALCIUM CARBONATE 500 MG (TUMS) TAB.CHEW PO PRN ×2 (01:41→08:29)
[2020-08-07 04:05] VITALS: BP 172/77
[2020-08-07 05:14] LABS: HEMOGLOBIN 9.9 G/DL (11.5-16.0)
[2020-08-07] MEDS: MULTIVIT W/MINERALS TAB (THERAGRAN M) PO SCH (06:20)
--- NOTE | 2020-08-07 07:00 | Progress Note ---
Standard Progress Note Progress Notes/Assess & Plan Date Seen by a Provider: Aug 07, 2020 Time Seen by a Provider: 06:59 Progress/Assessment & Plan no complaints Radiographs--HW well positioned and fracture well aligned Vital Signs Date Time Temp Pulse Resp B/P (MAP) Pulse Ox O2 Delivery O2 Flow Rate FiO2 08/06/20 04:36 36.7 103 20 169/80 (109) 95 Room Air 08/06/20 00:00 36.4 93 18 169/82 (111) 92 Room Air 08/05/20 20:20 Room Air 08/05/20 20:03 94 Room Air 08/05/20 20:00 36.5 97 18 154/73 (100) 95 Room Air 0.00 08/05/20 16:04 35.7 94 18 163/75 (104) 95 Room Air 08/05/20 15:00 35.8 97 18 173/69 (103) 93 Room Air 08/05/20 14:50 36.4 16 171/76 (107) 94 OxyMask 2 08/05/20 14:50 Room Air 08/05/20 14:40 OxyMask 2 08/05/20 14:40 18 160/77 (104) 96 OxyMask 2 08/05/20 14:30 16 170/76 (107) 95 OxyMask 4 08/05/20 14:30 OxyMask 4 08/05/20 14:20 15 163/89 (113) 97 OxyMask 6 08/05/20 14:20 OxyMask 6 08/05/20 14:10 OxyMask 8 08/05/20 14:10 16 149/99 (116) 100 OxyMask 8 08/05/20 13:58 OxyMask 10 08/05/20 13:58 36.4 21 143/70 (94) 99 OxyMask 10 08/05/20 09:15 93 184/79 (114) 08/05/20 08:00 Room Air I & O 08/06/20 07:00 Intake Total 3360 ml Output Total 1150 ml Balance 2210 ml Laboratory Tests Test 08/06/20 04:52 Range/Units Hemoglobin 10.4 #L 11.5-16.0 g/dL Hematocrit 30 L 35-52 % Sodium Level 135 135-145 MMOL/L Potassium Level 3.9 3.6-5.0 MMOL/L Chloride Level 105 98-107 MMOL/L Carbon Dioxide Level 21 21-32 MMOL/L Anion Gap 9 5-14 MMOL/L Blood Urea Nitrogen 14 7-18 MG/DL Creatinine 0.84 0.60-1.30 MG/DL Estimat Glomerular Filtration Rate > 60 BUN/Creatinine Ratio 17 Glucose Level 120 H 70-105 MG/DL Calcium Level 8.0 L 8.5-10.1 MG/DL LLE--dressing intact. intact DF and PF of toes and ankle. 2 plus DP pulse with brisk cap refill s/p L hip bipolar and ORIF PT/OT IRU? Final Diagnosis No complaints Vital Signs Date Time Temp Pulse Resp B/P (MAP) Pulse Ox O2 Delivery O2 Flow Rate FiO2 08/07/20 04:05 36.3 96 17 172/77 (108) 96 Room Air 08/07/20 00:00 37.1 108 17 160/74 (102) 96 Room Air 08/06/20 23:33 97 Room Air 08/06/20 20:00 Room Air 08/06/20 19:34 37.0 107 18 135/60 (85) 97 Room Air 08/06/20 16:15 99 173/73 (106) 08/06/20 16:00 36.8 99 18 185/79 (114) 97 Room Air 08/06/20 12:00 36.4 100 18 147/78 (101) 97 Room Air 08/06/20 08:00 36.7 94 16 175/75 (108) 96 Room Air 08/06/20 08:00 Room Air I & O 08/07/20 07:00 Intake Total 1850 ml Output Total 575 ml Balance 1275 ml Laboratory Tests Test 08/07/20 04:50 Range/Units Hemoglobin 9.9 L 11.5-16.0 G/DL Hematocrit 29 L 35-52 % L hip incision clean and dry. No calf tenderness. Neg Ritesh's s/p L hip bipolar/ORIF To IRU today MARC GARCIA MD Aug 07, 2020 07:00
[2020-08-07 08:00] VITALS: BP 178/79
[2020-08-07] MEDS: ENOXAPARIN 40 MG/0.4 ML (LOVENOX) SYR SC SCH (08:29)
[2020-08-07] MEDS: LOSARTAN 100 MG (COZAAR) TABLET PO SCH (08:29)
[2020-08-07] MEDS: ASPIRIN E.C. 81 MG (ECOTRIN) TAB PO SCH (08:30)
[2020-08-07] MEDS: DOCUSATE SODIUM 100 MG (COLACE) CAP PO SCH (08:34)
[2020-08-07] MEDS: SENNOSIDES 8.6 MG (SENOKOT) TAB PO SCH (08:34)
[2020-08-07] MEDS ORDERED: CARVEDILOL 12.5 MG (COREG) TABLET PO SCH (09:00)
[2020-08-07] MEDS ORDERED: ONDANSETRON 4 MG/2 ML (SDV) Z0FRAN ONE (10:21)
[2020-08-07] MEDS: ONDANSETRON 4 MG/2 ML (SDV) Z0FRAN IVP PRN (10:23)
--- NOTE | 2020-08-07 12:07 | Discharge Summary ---
Discharge Summary Hospital Course Was the Problem List Reviewed?: Yes Problems/Dx: (1) Closed left hip fracture Status: Acute Qualifiers: Qualified Codes: S72.002A - Fracture of unspecified part of neck of left femur, initial encounter for closed fracture (2) Fall from slipping on ice Status: Acute Qualifiers: Qualified Codes: W00.9XXA - Unspecified fall due to ice and snow, initial encounter (3) HTN (hypertension) Status: Chronic Qualifiers: Qualified Codes: I10 - Essential (primary) hypertension Hospital Course Date of Admission: Aug 04, 2020 at 14:15 Admission Diagnosis : closed left hip fracture due to fall from slipping on ice Family Physician/Provider: Matty Pizarro MD Date of Discharge: 08/07/20 Discharge Diagnosis: closed left hip fracture due to fall from slipping on ice Hospital Course: Agustin Thornton is an 80-year-old female with past medical history of hypertension who fell after slipping on ice and was admitted with a closed left hip fracture. Orthopedic surgery was consulted and performed a surgical repair. She did well with physical therapy postoperatively and was deemed to be a candidate for inpatient rehabilitation and transferred on 08/07. Her course was complicated by hypertension. Her Losartan dose was increased and she was started on Coreg. Labs and Pending Lab Test: Laboratory Tests 08/07/20 04:50: Hemoglobin 9.9L, Hematocrit 29L Microbiology 08/04/20 MRSA Screen - Final, Complete MRSA not isolated Home Meds Active Reported Coq-10 (Ubidecarenone) 100 Mg Capsule 100 Mg PO HS Ocuvite Adult 50 Plus Softgel (C,E,Zinc,Copper 11/Awiio9m/Lut) 1 Each Capsule 1 Each PO DAILY [Hylands Leg Cramp] 1 Ea PO HS Vitamin D3 (Cholecalciferol (Vitamin D3)) 25 Mcg Capsule 25 Mcg PO BID Red Yeast Rice 600 Mg Capsule 600 Mg PO BID Gabapentin 600 Mg Tablet 1,200 Mg PO HS TAKES 2 (600MG) TABS Gabapentin 600 Mg Tablet 600 Mg PO DAILY Losartan Potassium 25 Mg Tablet 25 Mg PO DAILY Assessment/Pt Instructions patient transferred to the inpatient rehabilitation. Discharge Planning: <30 minutes discharge planning Discharge Instructions Discharge Diet: No Restrictions Activity as Tolerated: Yes Consultations orthopedic surgery Discharge Physical Examination Vital Signs Vital Signs Date Time Temp Pulse Resp B/P (MAP) Pulse Ox O2 Delivery O2 Flow Rate FiO2 08/07/20 08:00 Room Air 08/07/20 08:00 37.2 103 18 178/79 (112) 97 08/05/20 20:00 0.00 General Appearance: No Apparent Distress, WD/WN Respiratory: Lungs Clear, Normal Breath Sounds, No Respiratory Distress Cardiovascular: Regular Rate, Rhythm, No Edema, No Murmur Gastrointestinal: Normal Bowel Sounds, Non Tender, Soft Extremity: Normal Inspection, Non Tender, No Pedal Edema Skin: Normal Color, Warm/Dry Neurologic/Psychiatric: Alert, Oriented x3, No Motor/Sensory Deficits, Normal Mood/Affect Allergies: Coded Allergies: morphine (Verified Allergy, Mild, 08/04/20) divalproex sodium (Verified Allergy, Unknown, 08/04/20) iodine (Verified Allergy, Unknown, 08/04/20) meloxicam (Verified Allergy, Unknown, 08/04/20) rosuvastatin (Verified Allergy, Unknown, 08/04/20) Discharge Summary Date of Admission Aug 04, 2020 at 14:15 Date of Discharge Aug 07, 2020 at 10:10 Discharge Date: Aug 07, 2020 Discharge Time: 10:10 Admission Diagnosis Left hip fracture Consults/Procedures Consulations orthopedic surgery Discharge Diagnosis Closed left hip fracture Fall from slipping on ice (1) Closed left hip fracture Status: Acute Qualifiers: Qualified Codes: S72.002A - Fracture of unspecified part of neck of left femur, initial encounter for closed fracture (2) Fall from slipping on ice Status: Acute Qualifiers: Qualified Codes: W00.9XXA - Unspecified fall due to ice and snow, initial encounter (3) HTN (hypertension) Status: Chronic Qualifiers: Qualified Codes: I10 - Essential (primary) hypertension RENETTA OLGUIN MD Aug 07, 2020 12:07
== END 2020-08-07 10:10 | DRG 522 ==
LOC: ER 12:56 → 4TH 14:15
PROVIDERS: ADMIT Internal Medicine; ATTEND Internal Medicine
PROC: 0QS704Z Reposition Left Upper Femur with Internal Fixation Device, Open Approach (ICD-10-PCS; 2020-08-05)
PROC: 0SRS0JZ Replacement of Left Hip Joint, Femoral Surface with Synthetic Substitute, Open Approach (ICD-10-PCS; principal; 2020-08-05 11:18)
DX: S72.112A Displaced fracture of greater trochanter of left femur, initial encounter for closed fracture (principal); W00.9XXA Unspecified fall due to ice and snow, initial encounter; I10 Essential (primary) hypertension; E78.00 Pure hypercholesterolemia, unspecified; G62.9 Polyneuropathy, unspecified; Z20.822 Contact with and (suspected) exposure to COVID-19; K21.9 Gastro-esophageal reflux disease without esophagitis; K58.9 Irritable bowel syndrome, unspecified; M79.7 Fibromyalgia; Z88.6 Allergy status to analgesic agent; Z91.041 Radiographic dye allergy status; Z86.718 Personal history of other venous thrombosis and embolism
CPT/HCPCS: 36415; 51702; 71045; 72192; 73501; 80048; 80053; 85014; 85018; 85025; 85610; 87081; 87635; 94664; 94760

== ENCOUNTER 2020-08-07 09:55 | Inpatient (IN) | payer MEDICARE ==
[~2020-08-07] VITALS: Ht 170.2 cm; Wt 84.8 kg
[~2020-08-07 09:55] MED LIST: C,E,1CAP PO; CHOL100048 PO; GBPN600T PO; HYLANDS LEG CRAMP PO; LOSA25TA41 PO; RED600CA2 PO; UBID100C17 PO
[2020-08-07 10:23] VITALS: BP 124/72
--- NOTE | 2020-08-07 10:29 | PM&R Post Admission Assessment ---
PM&R HP Date of Visit: Aug 07, 2020 Time of Visit: 12:00 History of Present Illness CC: Recovery from left hip fracture HPI: This is an 80yoWF patient who was moved from [facility] to [facility] in need of recovery from left hip fracture sustained from falling on the ice outside her home when she went to check the water meter due to frozen pipes. Currently she is being assessed by the therapy team. Patient reports pain is present but she is doing better. No BM yet. Sanchez cath removed and voiding well. Patient is very motivated to return to baseline activity. PLOF independent without the use of AD. She lives at home with her . Past Uhnucja-Ddbvdx-Vbilll Hx Past Med/Social Hx: Reviewed Nursing Past Med/Soc Hx, Reviewed and Corrections made Patient Social History Marrital Status: Employed/Student: retired Alcohol Use: Denies Use Smoking Status: Former Smoker Former Smoker, Quit: Jun 19, 1989 Type Used: Cigarettes Recent Hopitalizations: No Immunizations Up To Date Date of Influenza Vaccine: Mar 04, 2020 Seasonal Allergies Seasonal Allergies: Yes Past Medical History Surgeries: Abdominal, Bladder Surgery, Gallbladder, Hysterectomy Currently Using CPAP: No Currently Using BIPAP: No Cardiac: Deep Vein Thrombosis, High Cholesterol, Hypertension, Peripheral Vascular Neurological: Neuropathy Gastrointestinal: Gastroesophageal Reflux, Irritable Bowel Musculoskeletal: Fibromyalgia HEENT: Cataract PM&R Allergy/Meds/Data Review Allergies Coded Allergies: morphine (Verified Allergy, Mild, 08/04/20) divalproex sodium (Verified Allergy, Unknown, 08/04/20) iodine (Verified Allergy, Unknown, 08/04/20) meloxicam (Verified Allergy, Unknown, 08/04/20) rosuvastatin (Verified Allergy, Unknown, 08/04/20) Home Medications Scheduled C,E,Zinc,Copper 11/Imsfs7o/Lut (Ocuvite Adult 50 Plus Softgel), 1 EACH PO DAILY, (Reported) Cholecalciferol (Vitamin D3) (Vitamin D3), 25 MCG PO BID, (Reported) Gabapentin (Gabapentin), 600 MG PO DAILY, (Reported) Gabapentin (Gabapentin), 1,200 MG PO HS, (Reported) Losartan Potassium (Losartan Potassium), 25 MG PO DAILY, (Reported) Red Yeast Rice (Red Yeast Rice), 600 MG PO BID, (Reported) Ubidecarenone (Coq-10), 100 MG PO HS, (Reported) [[place] Leg Cramp], 1 EA PO HS, (Reported) Current Medications Current Medications Reviewed Review of Systems Constitutional: see HPI, malaise, weakness Gastrointestinal: nausea, vomiting Musculoskeletal: joint pain, muscle weakness Psychiatric/Neurological: Depressed Physical Exam Physical Exam Vital Signs Vital Signs - First Documented 08/07/20 10:23 Temp 35.9 Pulse 68 Resp 21 B/P (MAP) 124/72 (89) Pulse Ox 96 O2 Delivery Room Air Capillary Refill : Height, Weight, BMI Height: '" Weight: lbs. oz. kg; 29.34 BMI Method: General Appearance: No Apparent Distress, WD/WN, Anxious, Chronically ill Eyes: Bilateral Eye Normal Inspection, Bilateral Eye PERRL HEENT: PERRL/EOMI, Normal ENT Inspection, Pharynx Normal Neck: Full Range of Motion, Normal Inspection, Non Tender, Supple, Carotid Bruit Respiratory: Chest Non Tender, Lungs Clear, Normal Breath Sounds, No Accessory Muscle Use, No Respiratory Distress Cardiovascular: Regular Rate, Rhythm, No Edema, No Gallop, No JVD, No Murmur, Normal Peripheral Pulses Gastrointestinal: Normal Bowel Sounds, No Organomegaly, No Pulsatile Mass, Non Tender, Soft Back: Normal Inspection, No CVA Tenderness, No Vertebral Tenderness Extremity: Normal Capillary Refill, Normal Inspection, Normal Range of Motion (except left leg 3/5 strength), Non Tender, No Calf Tenderness, No Pedal Edema Neurologic/Psychiatric: Alert, Oriented x3, No Motor/Sensory Deficits, Normal Mood/Affect Skin: Normal Color, Warm/Dry Lymphatic: No Adenopathy PM&R Medical Assessment & Plan REHAB/MEDICAL ASSESSMENT AND PLAN: REHAB IMPAIRMENT GROUP: Left hip fracture ETIOLOGIC DIAGNOSIS: Left hip fracture The comorbidities that impact the patients function and/or functional outcome by: Fibromyalgia, HTN, h/o DVT so high risk for post op DVT, former smoker REHAB PLAN: The patient is being admitted to our comprehensive inpatient rehabilitation facility and can tolerate the intensity of service consisting of at least: 180 minutes of therapy a day, 5 out of 7 days a week Rehab treatment will consist of: PT OT will focus on regaining independence with the use of AD to regain ADL's and ambulatory skills and be able to return home The patient/family has a good understanding of our discharge process and will benefit from an interdisciplinary inpatient rehabilitation program. The patient has potential to make improvement and is in need of at least two of the following multidisciplinary therapies including but not limited to physical, occupational, speech, and prosthetics and orthotics. Additionally the patient will need services from respiratory, nutritional services, wound care, psycholo gy, etc. (Customize this to each patient). Given the patients complex condition and risk of further medical complications, rehabilitation services cannot be safely or effectively provided at a lower level of care such as a halfway facility. BARRIERS TO DISCHARGE: Severe pain left hip ESTIMATED LOS: 10 days DISPOSITION: Home RELEVANT CHANGES SINCE PREADMISSION SCREENING: I have compared the patients medical and functional status at the time of the preadmission screening and there are: no changes PROGNOSIS: Good REHABILITATION GOALS: 1. PT OT will focus on regaining independence with the use of AD to regain ADL's and ambulatory skills and be able to return home All the above goals were reviewed with the patient and he/she is in agreement. By signing this document, I acknowledge that I have personally performed a full physical examination on this patient within 24 hours of admission to this inpatient rehabilitation facility and have determined the patient to be able to tolerate the above course of treatment at an intensive level for a reasonable period of time. I will be completing a detailed individualized Plan of Care for this patient by day #4 of the patients stay based upon the Preadmission Screen, the Post-Admission Evaluation, and the therapy evaluations. Admission Dx/Comorbidities: (1) Closed left hip fracture Status: Acute ICD Codes: S72.002A - Fracture of unspecified part of neck of left femur, initial encounter for closed fracture (2) History of DVT of lower extremity ICD Codes: Z86.718 - Personal history of other venous thrombosis and embolism (3) Former smoker ICD Codes: Z87.891 - Personal history of nicotine dependence (4) Fibromyalgia ICD Codes: M79.7 - Fibromyalgia (5) Neuropathy ICD Codes: G62.9 - Polyneuropathy, unspecified (6) Fall from slipping on ice Status: Acute ICD Codes: W00.9XXA - Unspecified fall due to ice and snow, initial encounter (7) HTN (hypertension) Status: Chronic ICD Codes: I10 - Essential (primary) hypertension Assessment/Plan Assessment and Plan Assess & Plan/Chief Complaint Assessment: s/p left hip fracture repair HTN Fibromyalgia Former smoker h/o DVT Plan: BM regimen IRF protocol Monitor closely CHICHI KIM DO Aug 07, 2020 10:29
[2020-08-07] MEDS ORDERED: LOPERAMIDE 2 MG (IMODIUM) TABLET PO PRN (10:30)
[2020-08-07] MEDS ORDERED: diphenhydrAMINE 25 MG TAB (BENADRYL) PO PRN (10:30)
[2020-08-07] MEDS ORDERED: guaiFENesin/CODEINE (ROBITUSSIN AC) 10ML UDC PO PRN (10:30)
[2020-08-07] MEDS ORDERED: ACETAMINOPHEN 325 MG TABLET PO PRN (10:30)
[2020-08-07] MEDS ORDERED: ONDANSETRON 4 MG (ZOFRAN) ORAL DISSOLVE TAB PO PRN (10:30)
[2020-08-07] MEDS ORDERED: BISACODYL 10 MG SUPP (DULCOLAX) PR PRN (10:30)
[2020-08-07] MEDS ORDERED: ALPRAZolam 0.25 MG (XANAX) TAB PO PRN (10:30)
[2020-08-07] MEDS ORDERED: diphenhydrAMINE 50 MG/ML INJ (BENADRYL) IVP PRN (10:30)
[2020-08-07] MEDS ORDERED: polyethylene glycoL POWDER 17 GM (MIRALAX) PACK PO PRN (10:30)
[2020-08-07] MEDS ORDERED: DOCUSATE SODIUM 100 MG (COLACE) CAP PO PRN (10:30)
[2020-08-07] MEDS ORDERED: FLEET ENEMA ADULT 1 EA BTL PR PRN (10:30)
[2020-08-07] MEDS ORDERED: CALCIUM CARBONATE 500 MG (TUMS) TAB.CHEW PO PRN (10:30)
--- NOTE | 2020-08-07 11:17 | Occupational Therapy Eval ---
OT Evaluation-General/PLF Medical Diagnosis Admission Date Aug 07, 2020 at 09:55 Medical Diagnosis: L bipolar hemiarthroplasy Onset Date: Aug 06, 2020 Therapy Diagnosis Therapy Diagnosis: Decreased ADL status Precautions Precautions/Isolations: Standard Precautions Weight Bear Status Weight Bearing Restriction: Weight Bearing/Tolerated Location Restriction: L LE Referral Physician: Lidya Fiore DO. Referral Reason: Activity Tolerance, Self Care, Evaluation/Treatment, Strengthening/ROM Medical History Pertinent Medical History: GERD, HTN, Neuropathy, PVD Additional Medical History see nursing. Current History Slipped on ice, resulting in L femoral neck and greater trochanter fx. Pt completes hemiarthroplasty. Reviewed History: Yes Social History Home: Single Level Current Living Status: Spouse Entry Into Home: Stairs With Railing Steps Into Home: 5 Steps Inside Home: 0 Other Obstacles: 0 ADL-Prior Level of Function SCALE: Activities may be completed with or without assistive devices. 2-Ghifoqkmeu-sddwluw completes the activity by him/herself with no assistance from a helper. 5-Set-up or Clean-up Assistance-helper sets up or cleans up; patient completes activity. [place] assists only prior to or following the activity. 4-Supervision or Touching Assistance-helper provides verbal cues and/or touching/steadying and/or contact guard assistance as patient completes activity. Assistance may be provided throughout the activity or intermittently. 3-Partial/Moderate Assistance-helper does LESS THAN HALF the effort. [place] lifts, holds or supports trunk or limbs, but provides less than half the effort. 2-Substantial/Maximal Assistance-helper does MORE THAN HALF the effort. [place] lifts or holds trunk or limbs and provides more than half the effort. 1-Txkzixiol-wvjdha does ALL the effort. Patient does none of the effort to complete the activity. Or, the assistance of 2 or more helpers is required for the patient to complete the activity. If activity was not attempted, code reason: 7-Patient Refused. 9-Not Applicable-not attempted and the patient did not perform the activity before the current illness, exacerbation or injury. 10-Not Attempted due to Environmental Limitations-(lack of equipment, weather restraints, etc.). 88-Not Attempted due to Medical Conditions or Safety Concerns. ADL PLOF Comments Pt states IND with ADLs prior, no use of AD. Pt drives. Self Care: Independent Functional Cognition: Independent DME/Equipment: Shower (with sc.), Tall Toilet (with cabinet to side.) DME/Equipment Comments Owns walker, w/c, sc, central office frame wirer. 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 OT Current Status Subjective Pt AxO, though slight confusion intermittently about short term events (such as eating breakfast, next task after being educated on next task, etc). Pt agrees to OT/ PT co-treat and transfer to ARU. States 4/10 pain in L hip. OT individual eval: 6200-4429 (10) PT evaluation: 0297-2434 OT/ PT co-treat: [id number] (60): Co-treat rendered at this time. OT addresses UE movement, problem solving, balance, ADLs, while PT addresses LE movement, LE strength, balance and fx mobility. Mental Status/Objective Patient Orientation: Person, Place, Situation Current Glasses/Contacts: Yes (reading) Hearing Aids: No Dentures/Partials: Yes (no top dentation currently.) Upper Extremity ROM WFL BUE Upper Extremity Coordination WFL BUE Upper Extremity Sensation WFL BUE per pt, though slight numbness R UE when sleeping on stomach with hands under pt. Upper Extremity Strength WFL BUE (4/5 bilaterally, similar tray line supervisor WFL) ADL-Treatment Eating (QC): 6 (pt able to bring food/ water to mouth, good coordination. ) Oral Hygiene (QC): 6 (per clinical judgment pt IND with this task.) Shower/Bathe Self (QC): 7 (denies at this time, see later session.) Upper Body Dressing (QC): 7 (denies at this time, see later session.) Lower Body Dressing (QC): 2 (max A: Pt's breifs threaded to BLE and pt able to pulley man hips. Pt is educated on use of AE for LB management. ) On/Off Footwear (QC): 1 (TD, education of sock aide and dressing stick. Pt states she does not wear socks at home.) Toileting Hygiene (QC): 4 (CGA (bottom and bulmaro care)) Other Treatments Pt able to state 1/3 precautions (no bending), educated on 2/3. Pt completes bed mob with CGA and encouragement (supine to sit EOB). Pt sit to stand at walker level with min A, transfers to BSC with CGA x2. Pt completes urination/ cleaning in stance. Pt's briefs and socks donned for pt due to precautions, though pt's balance fair and able to pulley man hips. Ambulates with walker with CGA to w/c. Rests, states nausea. Pt is transferred by w/c to ARU, educated on OT/ PT role and ARU expectations. Pt completes car transfer, becomes nauseous again once settled in car. Pt completes ambulation task with PT/ OT assist, though pt becomes nauseous and requires sit (OT brings w/c behind pt), vomits in bucket. Pt attempts stance again, becomes nauseous, requires rest in w/c and saltine crackers/ Powerade given. Pt pushes self to room with min cues for w/c mobility. Pt introduced to room, sit to stand with min-mod A (cues for hand placement each transfer) and sits in recliner. Pt's ROM/ MMT WFL. Pt desires to get to bed. Educated on AE with instruction to remember for next session this afternoon. Pt completes bed mob with min A to supine position, positioned in abduction pillow, all needs met, call light in reach. Education OT Patient Education: Correct positioning, Disease process, Modified ADL techniques, Purpose of tx/functional activities, Reviewed precautions, Rehab process, Safety issues, Transfer techniques, Use of adapted equipment, W/C m anagement Teaching Recipient: Patient Teaching Methods: Demonstration, Discussion Response to Teaching: Verbalize Understanding, Return Demonstration, Unable to Comprehend (will require increased cues), Reinforcement Needed OT Short Term Goals Short Term Goals Shower/bathe self: 3 Upper body dressin Lower body dressin Putting on/taking off footwear: 3 OT Furniture Removalist Goals Half-Way Goals Time Frame: Aug 21, 2020 Eating (QC): 6 Oral Hygiene (QC): 6 Toileting Hygiene (QC): 6 Shower/Bathe Self (QC): 6 Upper Body Dressing (QC): 6 Lower Body Dressing (QC): 6 On/Off Footwear (QC): 6 Additional Goals: 1-Demonstrate ADL Tasks, 2-Verbalize Understanding, 3- ImproveStrength/Papa 1=Demonstrate adherence to instructed precautions during ADL tasks. 2=Patient will verbalize/demonstrate understanding of assistive devices/modifications for ADL. 3=Patient will improve strength/tolerance for activity to enable patient to perform ADL's. OT Education/Plan Problem List/Assessment Assessment: Decreased Activ Tolerance, Decreased UE Strength, Dependent Transfers, Impaired Bed Mobility, Impaired Funct Balance, Impaired I ADL's, Impaired Self-Care Skills Discharge Recommendations Plan/Recommendations: Continue POC Therapy Discharge Recommendati: Home & Family Equpiment Recommendations-D/C: Hip Kit Treatment Plan/Plan of Care Treatment,Training & Education: Yes Patient would benefit from OT for education, treatment and training to promote independence in ADL's, mobility, safety and/or upper extremity function for ADL's. Plan of Care: ADL Retraining, Caregiver Training, Concurrent Therapy, F unctional Mobility, Group Exercise/Act as Ind, UE Funct Exercise/Act, W/C Management Training Treatment Duration: Aug 21, 2020 Frequency: At least 5 of 7 days/Wk (IRF) Estimated Hrs Per Day: 1.5 hours per day Agreement: Yes Rehab Potential: Fair Time/GCodes Start Time: 09:55 Stop Time: 11:15 Total Time Billed (hr/min): 70 Billed Treatment Time 1, EVM (10) 1, FA (15), EX 2 (30), ADL (15)= 60 OT individual eval: [id number] (10) PT evaluation: [id number] OT/ PT co-treat: [id number] (60): Co-treat rendered at this time. OT addresses UE movement, problem solving, balance, ADLs, while PT addresses LE movement, LE strength, balance and fx mobility. MILKA MARCANO OTR Aug 07, 2020 11:17
--- NOTE | 2020-08-07 11:17 | Physical Therapy Evaluation ---
PT Evaluation-General Medical Diagnosis Admission Date Aug 07, 2020 at 09:55 Medical Diagnosis: left JOVANI Onset Date: Aug 04, 2020 Therapy Diagnosis Therapy Diagnosis: impaired mobility, strength, endurance, ROM Weight Bear Status Left Lower Extremity: Left Weight Bearing/Tolerated JOVANI precautions Referral Physician: Lidya Fiore DO Reason for Referral: Evaluation/Treatment Medical History Pertinent Medical History: GERD, HTN, Neuropathy, PVD Reviewed History: Yes Social History Home: Single Level Current Living Status: Spouse Entry Into Home: Stairs With Railing PT Steps Into Home: 5 Prior Prior Level of Function SCALE: Activities may be completed with or without assistive devices. 1-Exlawhfwai-shrizkw completes the activity by him/herself with no assistance from a helper. 5-Set-up or Clean-up Assistance-helper sets up or cleans up; patient completes a ctivity. [place] assists only prior to or following the activity. 4-Supervision or Touching Assistance-helper provides verbal cues and/or touching/steadying and/or contact guard assistance as patient completes activity. Assistance may be provided throughout the activity or intermittently. 3-Partial/Moderate Assistance-helper does LESS THAN HALF the effort. [place] lifts, holds or supports trunk or limbs, but provides less than half the effort. 2-Substantial/Maximal Assistance-helper does MORE THAN HALF the effort. [place] lifts or holds trunk or limbs and provides more than half the effort. 0-Ayeojnqdo-llyegq does ALL the effort. Patient does none of the effort to complete the activity. Or, the assistance of 2 or more helpers is required for the patient to complete the activity. If activity was not attempted, code reason: 7-Patient Refused. 9-Not Applicable-not attempted and the patient did not perform the activity before the current illness, exacerbation or injury. 10-Not Attempted due to Environmental Limitations-(lack of equipment, weather restraints, etc.). 88-Not Attempted due to Medical Conditions or Safety Concerns. Bed Mobility: 6 Transfers (B,C,W/C): 6 Gait: 6 Stairs: 6 Indoor Mobility (Ambulation): Independent Stairs: Independent PT Evaluation-Current Subjective Patient in bed pre tx, agrees to PT, has 4/10 pain in left hip. Will be co- treating with OT for part of tx due to impaired mobility, strength, endurance, severe nausea, coordinate UE and LE with activity, safety and reduce risk of falls. Pt/Family Goals to be independent at home Objective Patient Orientation: Person, Place, Situation ROM/Strength ROM Lower Extremities NT Strength Lower Extremities RLE (hip flexion 3+/5, knee flexion 4/5, knee extension 4/5, dorsiflexion 4/5) Sensory Hearing: Functional Sensation Right Lower Extremit: Intact Sensation Left Lower Extremity: Intact Transfers Roll Left & Right (QC): 3 Sit to Lying (QC): 3 Lying to Sitting/Side of Bed(Q: 3 Sit to Stand (QC): 3 Chair/Nvu-uc-Ecsvq Xfer(QC): 4 Toilet Transfer (QC): 4 Car Transfer (QC): 3 Patient performs bed mobility and supine <-> sit with min assist, sit <-> stand min assist, transfers CGA, car transfer min assist. Patient needs cues for safety and positioning and hand placement when sitting or standing. Patient needed to use the commode after getting out of bed, needed assist with cleaning. Gait Does the Patient Walk?: Yes Mode of Locomotion: Walk Anticipated Mode of Locomotion: Walk Walk 10 feet (QC): 4 Walk 50 ft with 2 Turns(QC): 88 Walk 150 ft (QC): 88 Walking 10ft/uneven surface-QC: 88 Distance: 10'x3 Gait Assistive Device: FWW Comments/Gait Description Patient can ambulate 10' with a rolling walker with CGA (including 10' over an uneven surface). Patient ambulates slowly, poor foot clearance but can advance her left foot. Wheelchair Training Does the Pt Use a Wheelchair?: Yes Distance: 20' Wheel 50 ft with 2 turns (QC): 88 Wheel 150 ft (QC): 88 Type of Wheelchair: Manual min assist Stairs #of Steps: 1 1 Step (curb) (QC): 3 4 Steps (QC): 88 12 Steps (QC): 88 Walking Assistive Device: Walker Patient can go up and down 1 step using a rolling walker with min assist, cues for foot placement and safety. Balance Sitting Static: Normal Sitting Dynamic: Normal Standing Static: Fair Standing Dynamic: Fair Picking up an Object (QC): 88 Assessment/Needs Patient has impaired mobility, strength, endurance, ROM. Patient in bed post tx with nurse call, phone, tray, all needs met. Patient is very nauseated, needed significant time to rest and recover many times due to nausea. Rehab Potential: Fair PT Short Term Goals Short Term Goals Time Frame: Aug 14, 2020 Roll Left & Right: 6 Sit to lyin Lying to sitting on side of be: 4 Sit to stand: 4 Chair/ffb-im-lfofh transfer: 4 Walk 10 feet: 4 Walk 50 feet with two turns: 4 PT Prison Goals Prison Goals PT Lens Grinder Goals Time Frame: Aug 28, 2020 Roll Left & Right (QC): 6 Sit to Lying (QC): 6 Lying-Sitting on Side/Bed(QC): 6 Sit to Stand (QC): 6 Chair/Yas-ux-Zbfmf Xfer(QC): 6 Toilet Transfer (QC): 6 Car Transfer (QC): 6 Does the Patient Walk: Yes Walk 10 feet (QC): 6 Walk 50ft with 2 Turns (QC): 6 Walk 150 ft (QC): 6 Walking 10ft on Uneven Surface: 6 1 Step (curb) (QC): 5 4 Steps (QC): 5 12 Steps (QC): 88 Picking up an Object (QC): 88 Wheel 50 feet with 2 turns (QC: 9 Wheel 150 feet: 9 PT Plan Problem List Problem List: Activity Tolerance, Functional Strength, Safety, Balance, Gait, Transfer, Bed Mobility, ROM Treatment/Plan Treatment Plan: Continue Plan of Care Treatment Plan: Bed Mobility, Education, Functional Activity Papa, Functional Strength, Group Therapy, Gait, Safety, Therapeutic Exercise, Transfers Treatment Duration: Aug 28, 2020 Frequency: At least 5 of 7 days/Wk (IRF) Estimated Hrs Per Day: 1.5 hours per day Patient and/or Family Agrees t: Yes Safety Risks/Education Patient Education: Gait Training, Transfer Techniques, Steps, Reviewed Precautions, Correct Positioning, W/C Management, Safety Issues Teaching Recipient: Patient Teaching Methods: Demonstration, Discussion Response to Teaching: Reinforcement Needed Discharge Recommendations Plan Patient will perform bed mobility and transfer training, balance and endurance training, functional strengthening, stair training, gait training, and education, to improve functional mobility and independence at home. Therapy Discharge Recommendati: Scheduled Assistance, Home & Family Time/GCodes Time In: 954 Time Out: 1115 Total Billed Treatment Time: 70 Total Billed Treatment 1 visit EVM 10' FA 60' OT eval from 5507-6077, PT eval from [id number], co-treat from [id number]. PT performed bed mobility and transfers, ambulation, WC mobility, stairs, OT performed toileting and cleaning, UE positioning and safety during ambulation STAN TORRES PT Aug 07, 2020 11:17
--- NOTE | 2020-08-07 13:51 | Occupational Ther Daily Note ---
OT Current Status-Daily Note Subjective Pt agreeable to OT tx. Pt is nauseated during activity Mental Status/Objective Patient Orientation: Person, Place, Situation ADL-Treatment Therapy Code Descriptions/Definitions Functional [place] Measure: 0=Not Assessed/NA 4=Minimal Assistance 1=Total Assistance 5=Supervision or Setup 2=Maximal Assistance 6=Modified [place] 3=Moderate Assistance 7=Complete IndependenceSCALE: Activities may be completed with or without assistive devices. 2-Lmkexkmzxq-hvdwkfx completes the activity by him/herself with no assistance from a helper. 5-Set-up or Clean-up Assistance-helper sets up or cleans up; patient completes activity. [place] assists only prior to or following the activity. 4-Supervision or Touching Assistance-helper provides verbal cues and/or touching/steadying and/or contact guard assistance as patient completes activity. Assistance may be provided throughout the activity or intermittently. 3-Partial/Moderate Assistance-helper does LESS THAN HALF the effort. [place] lifts, holds or supports trunk or limbs, but provides less than half the effort. 2-Substantial/Maximal Assistance-helper does MORE THAN HALF the effort. [place] lifts or holds trunk or limbs and provides more than half the effort. 6-Fgjyyzpdr-jnehiu does ALL the effort. Patient does none of the effort to complete the activity. Or, the assistance of 2 or more helpers is required for the patient to complete the activity. If activity was not attempted, code reason: 7-Patient Refused. 9-Not Applicable-not attempted and the patient did not perform the activity befo re the current illness, exacerbation or injury. 10-Not Attempted due to Environmental Limitations-(lack of equipment, weather re straints, etc.). 88-Not Attempted due to Medical Conditions or Safety Concerns. Oral Hygiene (QC): 5 (Set up, pt took out dentures to soak) Shower/Bathe Self (QC): 3 (Nga, pt able to wash all body parts during sponge bath expect lower legs. Pt educated on long handled sponge) Upper Body Dressing (QC): 5 (Set up) Lower Body Dressing (QC): 3 (ModA, pt instructed to use auto transmission mechanic to don pants but required mod assist to thread feet through) On/Off Footwear: 3 (ModA, pt able to doff both socks with dressing stick and don socks with sock aid. Pt required assistance to adjust) Toileting Hygiene (QC): 4 (CGA while standing) Other Treatment Pt began tx supine in bed and agreeable to sponge bath. When asked, pt remember 2/3 hip precautions and was educated on 1/3 precaution. Pt transferred to EOB sitting with ModA and mod cues. Pt doffed gown and washed trunk and UE. Pt doffed socks with dressing stick, pt was unable to recall how to use dressing stick from past tx today. Pt washed upper legs and OT assisted with BLE and pt educated on long handled sponge. Pt donned socks and pants with AD. During donning pants, pt required a cue to remind pt of hip precaution and not bending past 90 degrees. Pt required minimal rest breaks due to feeling nauseated. Pt stood to wash buttocks and performed pants hike with CGA. Pt sat EOB and transferred to supine with mod A, abduction put in place. Pt agreed when asked if wanted all rails on bed up. In bed, pt took out dentures to soak and end of tx, pt supine in bed, with call light in reach and all needs met. Education OT Patient Education: Correct positioning, Energy conservation, Modified ADL techniques, Progress toward Goal/Update tx plan, Purpose of tx/functional activities, Rehab process, Safety issues, Transfer techniques, Use of adapted equipment Teaching Recipient: Patient Teaching Methods: Demonstration, Discussion Response to Teaching: Verbalize Understanding, Reinforcement Needed OT Short Term Goals Short Term Goals Shower/bathe self: 3 Upper body dressin Lower body dressin Putting on/taking off footwear: 3 OT Usp Goals Insulation Worker Apprentice Goals Time Frame: Aug 21, 2020 Eating (QC): 6 Oral Hygiene (QC): 6 Toileting Hygiene (QC): 6 Shower/Bathe Self (QC): 6 Upper Body Dressing (QC): 6 Lower Body Dressing (QC): 6 On/Off Footwear (QC): 6 Additional Goals: 1-Demonstrate ADL Tasks, 2-Verbalize Understanding, 3- ImproveStrength/Papa 1=Demonstrate adherence to instructed precautions during ADL tasks. 2=Patient will verbalize/demonstrate understanding of assistive devices/modifications for ADL. 3=Patient will improve strength/tolerance for activity to enable patient to perform ADL's. OT Education/Plan Problem List/Assessment Assessment: Decreased Activ Tolerance, Decreased Safety Aware, Decreased UE Strength, Impaired Bed Mobility, Impaired Funct Balance, Impaired I ADL's, Impaired Self-Care Skills Discharge Recommendations Plan/Recommendations: Continue POC Treatment Plan/Plan of Care Patient would benefit from OT for education, treatment and training to promote independence in ADL's, mobility, safety and/or upper extremity function for ADL's. Plan of Care: ADL Retraining, Caregiver Training, Concurrent Therapy, Functional Mobility, Group Exercise/Act as Ind, UE Funct Exercise/Act, W/C Management Training Treatment Duration: Aug 21, 2020 Frequency: At least 5 of 7 days/Wk (IRF) Estimated Hrs Per Day: 1.5 hours per day Agreement: Yes Rehab Potential: Fair Time/GCodes Start Time: 13:00 Stop Time: 13:40 Total Time Billed (hr/min): 40 Billed Treatment Time 1, ADL 3 (40') MILKA MARCANO OTR Aug 07, 2020 13:51
--- NOTE | 2020-08-07 14:16 | ST Cognitive Linguistic Eval ---
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 Fiore Medical History Pertinent Medical History: GERD, HTN, Neuropathy, PVD Reviewed History: Yes Social History Current Living Status: Spouse Speech PLF-Current Status Prior Level of Function Patient lived at home with her where she was independent with most of her daily needs. Subjective Patient was pleasant and cooperative with the cognitive assessment. Language Eval: Auditory Comprehends Simple Yes/No Ques: Functional Indent/Objects Multiple [place]: Functional Ident/Pics in Multiple [place]: Functional Follows 1-Step Commands: Functional Follows Complex Directions: Functional Follows General Conversations: Functional Language Eval: Verbal Language Completes Spontaneous Greeting: Functional Produces Auto, Serial Info: Functional Imitates Simple Words/Phrases: Functional Word Finding: Functional Requests Basic Needs: Functional States Basic Personal Info: Functional Expresses Complex Ideas: Functional Cognitive Patient Orientation Patient is oriented to self, place and situation Objective Cognitive Domain Attention: WNL Memory: WNL Problem Solving: Functional Executive Functions: WNL Visuospatial Skills: WNL Composite Severity Rating: WNL Clock Drawing Severity Rating: WNL Objective Formal/Standardized Tests [facility] Mental Status ([facility]) Results 27/30, within normal range of function Oral Motor/Speech Production Within Normal Limits Impression Patient is a pleasant 80 y/o woman who was admitted to the ARU following hip surgery. Patient was given the SLUMS with a score of 27/30 obtained. This score is within the normal range of function and does not indicate further ST needs at this time. Speech Patient Assess Expression of Ideas/Wants: Expression (4) Understanding Verbal Content: Understands (4) Brief Interview-Mental Status: Yes Repetition of Three Words: Three (3) Temporal Orientation: Year: Correct (3) Temporal Orientation: Month: Accurate within 5 days(2) Temporal Orientation: Day: Correct (1) Recall : Wear to say "Sock": Yes,after cueing (1) Recall : Color: Yes, after cueing (1) Recall : Bed: Yes, no cue required (2) Memory/Recall Ability: Current season, That he or she is in a hsp/hsp unit Speech-Plan Patient/Family Goals Patient/Family Goals: Patient plans on returning to her home where she lives with her . Treatment Plan Speech Therapy Treatment Plan: Discontinue ST Treatment Duration: Aug 07, 2020 Frequency: 1 time per week Estimated Hrs Per Day: .5 hour per day Rehab Potential: Fair Barriers to Learning: Patient's age, recent surgery Pt/Family Agrees to Plan: Yes Safety Risks/Education Teaching Recipient: Patient Teaching Methods: Discussion Response to Teaching: Verbalize Understanding Education Topics Provided: Safety within her room and communication of wants/needs Time Speech Therapy Time In: 13:45 Speech Therapy Time Out: 14:15 Total Billed Time: 30 Billed Treatment Time 1, CHARO Allen Aug 07, 2020 14:15
[2020-08-07 17:44] VITALS: BP 137/61
[2020-08-07] MEDS: polyethylene glycoL POWDER 17 GM (MIRALAX) PACK PO SCH (20:30)
[2020-08-07] MEDS: CALCIUM CARBONATE 500 MG (TUMS) TAB.CHEW PO PRN (20:31)
[2020-08-07] MEDS: HYDROcodone/APAP 7.5 MG/325 MG (LORTAB, LORCET PLUS) TABLET PO PRN (20:31)
[2020-08-07] MEDS: CARVEDILOL 12.5 MG (COREG) TABLET PO SCH (20:31)
[2020-08-07] MEDS: DOCUSATE SODIUM 100 MG (COLACE) CAP PO SCH (20:32)
[2020-08-07] MEDS: SENNOSIDES 8.6 MG (SENOKOT) TAB PO SCH (20:32)
[2020-08-07] MEDS ORDERED: SENNA W/DOCUSATE (SENOKOT S) TABLET PO SCH (21:00)
[2020-08-07] MEDS ORDERED: DOCUSATE SODIUM 100 MG (COLACE) CAP PO SCH (21:00)
[2020-08-08 05:32] LABS: BASOPHILS % (AUTO) 0 % (0-10); EOSINOPHILS # (AUTO) 0.1 10^3/uL (0.0-0.3); EOSINOPHILS % (AUTO) 1 % (0-10); HEMATOCRIT 27 % (35-52); HEMOGLOBIN 9.2 g/dL (11.5-16.0); LYMPHOCYTES # (AUTO) 1.9 10^3/uL (1.0-4.0); LYMPHOCYTES % (AUTO) 24 % (12-44); MEAN CORPUSCULAR HEMOGLOBIN 31 pg (25-34); MEAN CORPUSCULAR HGB CONC 34 g/dL (32-36); MEAN CORPUSCULAR VOLUME 91 fL (80-99); MEAN PLATELET VOLUME 10.9 fL (9.0-12.2); MONOCYTES # (AUTO) 0.9 10^3/uL (0.0-1.0); MONOCYTES % (AUTO) 11 % (0-12); NEUTROPHILS # (AUTO) 5.2 10^3/uL (1.8-7.8); NEUTROPHILS % (AUTO) 64 % (42-75); PLATELET COUNT 249 10^3/uL (130-400); WHITE BLOOD COUNT 8.2 10^3/uL (4.3-11.0)
[2020-08-08 05:39] LABS: ALBUMIN 2.8 GM/DL (3.2-4.5); CHLORIDE 102 MMOL/L (98-107); POTASSIUM 3.6 MMOL/L (3.6-5.0); SODIUM 133 MMOL/L (135-145)
[2020-08-08 05:41] LABS: CALCIUM 8.2 MG/DL (8.5-10.1)
[2020-08-08 05:42] LABS: GLUCOSE 104 MG/DL (70-105); TOTAL PROTEIN 5.3 GM/DL (6.4-8.2)
[2020-08-08 05:43] LABS: CARBON DIOXIDE 23 MMOL/L (21-32)
[2020-08-08 05:44] LABS: BILIRUBIN,TOTAL 0.5 MG/DL (0.1-1.0)
[2020-08-08 05:45] LABS: ALKALINE PHOSPHATASE 42 U/L (40-136); CREATININE SERUM 0.82 MG/DL (0.60-1.30); GFR ESTIMATED > 60
[2020-08-08 05:46] LABS: BUN/CREATININE RATIO 26
[2020-08-08 05:48] LABS: ALANINE AMINOTRANSFERASE 26 U/L (0-55)
[2020-08-08 06:00] VITALS: BP 137/66
[2020-08-08] MEDS: MULTIVIT W/MINERALS TAB (THERAGRAN M) PO SCH (06:00)
[2020-08-08] MEDS: HYDROcodone/APAP 7.5 MG/325 MG (LORTAB, LORCET PLUS) TABLET PO PRN ×3 (06:01→23:26)
[2020-08-08] MEDS: DOCUSATE SODIUM 100 MG (COLACE) CAP PO SCH ×2 (09:09→21:42)
[2020-08-08] MEDS: ASPIRIN E.C. 81 MG (ECOTRIN) TAB PO SCH (09:09)
[2020-08-08] MEDS: ENOXAPARIN 40 MG/0.4 ML (LOVENOX) SYR SC SCH (09:09)
[2020-08-08] MEDS: LOSARTAN 100 MG (COZAAR) TABLET PO SCH (09:09)
[2020-08-08] MEDS: CARVEDILOL 12.5 MG (COREG) TABLET PO SCH ×2 (09:09→21:41)
[2020-08-08] MEDS: SENNOSIDES 8.6 MG (SENOKOT) TAB PO SCH ×2 (09:10→21:42)
[2020-08-08] MEDS: polyethylene glycoL POWDER 17 GM (MIRALAX) PACK PO SCH ×2 (09:10→21:42)
--- NOTE | 2020-08-08 10:03 | Physical Therapy Daily Note ---
PT Daily Note-Current Subjective Pt sitting up in recliner upon arrival. Pt agrees to PT tx. Pt informs STREET SWEEPER that pt has experienced nausea during transfers and becomes hot and sweaty. Pain Numeric Pain Scale: 0-No Pain Location: No Pain Reported Mental Status Patient Orientation: Person, Place, Situation Attachments: Other-See Comments ([place]) Transfers SCALE: Activities may be completed with or without assistive devices. 1-Dbsfrnjftg-fcmqiqa completes the activity by him/herself with no assistance from a helper. 5-Set-up or Clean-up Assistance-helper sets up or cleans up; patient completes activity. [place] assists only prior to or following the activity. 4-Supervision or Touching Assistance-helper provides verbal cues and/or touching/steadying and/or contact guard assistance as patient completes activity. Assistance may be provided throughout the activity or intermittently. 3-Partial/Moderate Assistance-helper does LESS THAN HALF the effort. [place] lifts, holds or supports trunk or limbs, but provides less than half the effort. 2-Substantial/Maximal Assistance-helper does MORE THAN HALF the effort. [place] lifts or holds trunk or limbs and provides more than half the effort. 1-Bvlnwdtzt-aljmeh does ALL the effort. Patient does none of the effort to complete the activity. Or, the assistance of 2 or more helpers is required for the patient to complete the activity. If activity was not attempted, code reason: 7-Patient Refused. 9-Not Applicable-not attempted and the patient did not perform the activity before the current illness, exacerbation or injury. 10-Not Attempted due to Environmental Limitations-(lack of equipment, weather restraints, etc.). 88-Not Attempted due to Medical Conditions or Safety Concerns. Sit to Lying (QC): 3 Sit to Stand (QC): 4 Chair/Cvw-fi-Lteue Xfer(QC): 4 Weight Bearing Left Lower Extremity: Left Weight Bearing/Tolerated JOVANI precautions Exercises Supine Ex: Ankle pumps, Quad Set, Glut sets Supine Reps: 15 (x2) Treatments Pt completes exercises in long sitting. Pt sit<>stands from recliner using FWW w/ CGA. Pt transfers to EOB using FWW w/ CGA. Pt completes sitting to supine w/ ModA. Pt in bed w/ RN in room, bedside table and call light w/in reach and all needs met at end of tx. Assessment Current Status: Fair Progress Pt motivated and comments that "It gets easier every day". Pt remembers JOVANI precautions and adheres PT Short Term Goals Short Term Goals Time Frame: Aug 14, 2020 Roll Left & Right: 6 Sit to lyin Lying to sitting on side of be: 4 Sit to stand: 4 Chair/ddu-eq-drlio transfer: 4 Walk 10 feet: 4 Walk 50 feet with two turns: 4 PT Cutting Table Operator Goals Usp Goals PT Usp Goals Time Frame: Aug 28, 2020 Roll Left & Right (QC): 6 Sit to Lying (QC): 6 Lying-Sitting on Side/Bed(QC): 6 Sit to Stand (QC): 6 Chair/Mla-le-Wsabx Xfer(QC): 6 Toilet Transfer (QC): 6 Car Transfer (QC): 6 Does the Patient Walk: Yes Walk 10 feet (QC): 6 Walk 50ft with 2 Turns (QC): 6 Walk 150 ft (QC): 6 Walking 10ft on Uneven Surface: 6 1 Step (curb) (QC): 5 4 Steps (QC): 5 12 Steps (QC): 88 Picking up an Object (QC): 88 Wheel 50 feet with 2 turns (QC: 9 Wheel 150 feet: 9 PT Plan Problem List Problem List: Activity Tolerance, Functional Strength, Safety, Balance, Gait, T ransfer, Bed Mobility, ROM Treatment/Plan Treatment Plan: Continue Plan of Care Treatment Plan: Bed Mobility, Education, Functional Activity Papa, Functional Strength, Group Therapy, Gait, Safety, Therapeutic Exercise, Transfers Treatment Duration: Aug 28, 2020 Frequency: At least 5 of 7 days/Wk (IRF) Estimated Hrs Per Day: 1.5 hours per day Patient and/or Family Agrees t: Yes Safety Risks/Education Patient Education: Transfer Techniques, Safety Issues Teaching Recipient: Patient Teaching Methods: Discussion Response to Teaching: Verbalize Understanding Time/GCodes Time In: 0847 Time Out: 0910 Total Billed Treatment Time: 23 Total Billed Treatment 1, Ex (10m), FA (13m) LYSSA HELLER STREET SWEEPER Aug 08, 2020 10:03
[2020-08-08] MEDS: ONDANSETRON 4 MG/2 ML (SDV) Z0FRAN IVP PRN (10:57)
[2020-08-08] MEDS: CALCIUM CARBONATE 500 MG (TUMS) TAB.CHEW PO PRN (10:57)
--- NOTE | 2020-08-08 12:03 | PM&R Progress Note ---
Subjective HPI/CC On Admission Date Seen by Provider: Aug 08, 2020 Time Seen by Provider: 12:00 Subjective/Events-last exam 08/08/20: Patient with continued N/V NPO status ordered KUB ordered to r/o obstruction and ileus Iron level will be ordered hgb 9.6 IVF started Review of Systems General: Fatigue Gastrointestinal: Nausea, Vomiting Musculoskeletal: leg pain Objective Exam Vital Signs Vital Signs Date Time Temp Pulse Resp B/P (MAP) Pulse Ox O2 Delivery O2 Flow Rate FiO2 08/09/20 09:06 Room Air 08/09/20 06:00 36.8 69 16 149/66 (93) 94 Capillary Refill : Less Than 3 Seconds General Appearance: No Apparent Distress, WD/WN, Anxious, Chronically ill HEENT: PERRL/EOMI, Normal ENT Inspection, Pharynx Normal Neck: Full Range of Motion, Normal Inspection, Non Tender, Supple, Carotid Bruit Respiratory: Chest Non Tender, Lungs Clear, Normal Breath Sounds, No Accessory Muscle Use, No Respiratory Distress Cardiovascular: Regular Rate, Rhythm, No Edema, No Gallop, No JVD, No Murmur, Normal Peripheral Pulses Gastrointestinal: Normal Bowel Sounds, No Organomegaly, No Pulsatile Mass, Non Tender, Soft Back: Normal Inspection, No CVA Tenderness, No Vertebral Tenderness Extremity: Normal Capillary Refill, Normal Inspection, Normal Range of Motion (except left leg 3/5 strength), Non Tender, No Calf Tenderness, No Pedal Edema Neurologic/Psychiatric: Alert, Oriented x3, No Motor/Sensory Deficits, Normal Mood/Affect Skin: Normal Color, Warm/Dry Lymphatic: No Adenopathy Results/Procedures Lab Patient resulted labs reviewed. FIM Transfers Therapy Code Descriptions/Definitions Functional [place] Measure: 0=Not Assessed/NA 4=Minimal Assistance 1=Total Assistance 5=Supervision or Setup 2=Maximal Assistance 6=Modified [place] 3=Moderate Assistance 7=Complete IndependenceSCALE: Activities may be completed with or without assistive devices. 9-Fnilxmvpvb-qzpudag completes the activity by him/herself with no assistance from a helper. 5-Set-up or Clean-up Assistance-helper sets up or cleans up; patient completes activity. [place] assists only prior to or following the activity. 4-Supervision or Touching Assistance-helper provides verbal cues and/or touc ilir/steadying and/or contact guard assistance as patient completes activity. Assistance may be provided throughout the activity or intermittently. 3-Partial/Moderate Assistance-helper does LESS THAN HALF the effort. [place] lifts, holds or supports trunk or limbs, but provides less than half the effort. 2-Substantial/Maximal Assistance-helper does MORE THAN HALF the effort. [place] lifts or holds trunk or limbs and provides more than half the effort. 4-Fyqxeoggf-euryos does ALL the effort. Patient does none of the effort to complete the activity. Or, the assistance of 2 or more helpers is required for the patient to complete the activity. If activity was not attempted, code reason: 7-Patient Refused. 9-Not Applicable-not attempted and the patient did not perform the activity before the current illness, exacerbation or injury. 10-Not Attempted due to Environmental Limitations-(lack of equipment, weather restraints, etc.). 88-Not Attempted due to Medical Conditions or Safety Concerns. Roll Left to Right (QC): 3 Sit to Lying (QC): 3 Sit to Stand (QC): 4 Chair/Xqo-uu-Xwaok Xfer(QC): 4 Car Transfer (QC): 3 Gait Training Does the Patient Walk?: Yes Walk 10 feet (QC): 4 Walk 50 ft with 2 Turns(QC): 88 Walk 150 ft (QC): 88 Walking 10ft/uneven surface-QC: 88 Gait Assistive Device: FWW Wheelchair Training Does the Pt Use a Wheelchair?: Yes Distance: 20' Wheel 50 ft with 2 turns (QC): 88 Wheel 150 ft (QC): 88 Type of Wheelchair: Manual Stair Training #of Steps: 1 1 Step (curb) (QC): 3 4 Steps (QC): 88 12 Steps (QC): 88 Balance Picking up an Object (QC): 88 ADL-Treatment Eating (QC): 6 (pt able to bring food/ water to mouth, good coordination. ) Oral Hygiene (QC): 5 (Set up, pt took out dentures to soak) Shower/Bathe Self (QC): 7 (denies at this time, see later session.) Upper Body Dressing (QC): 7 (denies at this time, see later session.) Lower Body Dressing (QC): 3 (ModA, pt instructed to use cargo worker to don pants but required mod assist to thread feet through) On/Off Footwear (QC): 3 (ModA, pt able to doff both socks with dressing stick and don socks with sock aid. Pt required assistance to adjust) Toileting Hygiene (QC): 4 (CGA while standing) Assessment/Plan Assessment and Plan Assess & Plan/Chief Complaint Assessment: s/p left hip fracture repair HTN Fibromyalgia Former smoker h/o DVT Plan: BM regimen IRF protocol Monitor closely 08/08/20: NPO IVF Reglan Add iron level KUB (1) Closed left hip fracture Status: Acute (2) History of DVT of lower extremity (3) Former smoker (4) Fibromyalgia (5) Neuropathy (6) Fall from slipping on ice Status: Acute (7) HTN (hypertension) Status: Chronic CHICHI KIM DO Aug 08, 2020 12:03
--- NOTE | 2020-08-08 12:04 | Individualized Plan of Care ---
Individualized Plan of Care Rehab Nursing IPOC Order Admission Date Aug 07, 2020 at 09:55 Current Orders Orders Admission Arrival Bed Request (08/07/20 10:15) Admission Order(Inpt,Obs,Sdc) (08/07/20 10:25) Vital Signs: Per Unit Policy ( 08,16,00 (08/07/20 10:25) Babar Paredes (08/07/20 10:25) Sequential Compression Device Q4H (08/07/20 10:25) Repairer Resistance Welding Machines-Inpt Rehab Con (08/07/20 10:25) Rehab Nursing Orders-Ipoc (08/07/20 10:25) Physical Therapy Rehab Orders (08/07/20 10:25) Occupational Therapy Rehab Ord (08/07/20 10:25) Speech Therapy Rehab Orders (08/07/20 10:25) Cbc With Automated Diff (08/08/20 06:00) Comprehensive Metabolic Panel (08/08/20 06:00) Intake & Output 06,14,22 (08/07/20 10:25) Precautions (Aru) (08/07/20 10:25) Weekly Weight WEEK (08/07/20 10:25) Rehab-Intensity Of Therapy (08/07/20 10:25) Initiate Admission Nursing Pro .admission (08/07/20 10:25) Alprazolam Tablet (Xanax Tablet) (08/07/20 10:30) Calcium Carbonate Chew Tablet (Antacid C (08/07/20 10:30) Diphenhydramine Tablet (Benadryl Tablet) (08/07/20 10:30) Docusate Sodium Capsule (Colace Capsule) (08/07/20 21:00) Docusate Sodium Capsule (Colace Capsule) (08/07/20 10:30) Bisacodyl Suppository (Dulcolax Supposit (08/07/20 10:30) Lactulose Oral Solution (Enulose Oral So (08/07/20 10:30) Na Phos/Na Biphos Enema (Fleet Enema Erlin (08/07/20 10:30) Guaifenesin/Codeine Syrup (Robitussin Ac (08/07/20 10:30) Loperamide Tablet (Imodium Tablet) (08/07/20 10:30) Melatonin Tablet (Melatonin Tablet) (08/07/20 10:30) Polyethylene Glycol Powder Pkt (Miralax (08/07/20 21:00) Ondansetron Oral Dissolve Tab (Zofran (08/07/20 10:30) Senna S Tablet (Senokot S Tablet) (08/07/20 21:00) Initiate Admission Nursing Pro .admission (08/07/20 10:25) Code/Resuscitation (08/07/20 10:26) Ambulate (08/07/20 10:26) Hemovac Drain Care (08/07/20 10:26) Ice: Apply To Affected Area (08/07/20 10:26) Incentive Spirometry (Nursing) Q2H (08/07/20 10:26) Aspirin Enteric Coated Tablet (Ecotrin T (08/08/20 09:00) Calcium Carbonate Chew Tablet (Antacid C (08/07/20 10:30) Carvedilol Tablet (Coreg Tablet) (08/07/20 21:00) Docusate Sodium Capsule (Colace Capsule) (08/07/20 21:00) Hydrocodone/Apap 7.5/325 Tab (Lortab 7. (08/07/20 10:30) Losartan Tablet (Cozaar Tablet) (08/08/20 09:00) Therapeutic Multivitamin Tab (Vitamins, (08/08/20 07:00) Temazepam Capsule (Restoril Capsule) (08/07/20 10:30) Sennosides Tablet (Senokot Tablet) (08/07/20 21:00) Acetaminophen Tablet/Caplet (Tylenol T (08/07/20 10:30) Ondansetron Injection (Zofran Injectio (08/07/20 10:30) Diphenhydramine Injection (Benadryl Inje (08/07/20 10:30) Polyethylene Glycol Powder Pkt (Miralax (08/07/20 10:30) Consult Orthopedic Surgery (08/07/20 10:26) Incentive Spirometry Initial (08/07/20:26) Incentive Spirometry (Nursing) Q2H (08/07/20 10:26) Enoxaparin Injection (Lovenox Injection) (08/08/20 08:00) Patient Visit (08/07/20 ) Pt Eval Moderate Complexity (08/07/20 ) Functional Activities, Ea 15 (08/07/20 ) Patient Visit (08/07/20 ) Speech Sound Lang Comp (08/07/20 ) Iron Test (Fe) (08/08/20 06:00) General/Regular (08/08/20 Breakfast) Patient Visit (08/08/20 ) Exercise Therap, Ea 15 Min (08/08/20 ) Functional Activities, Ea 15 (08/08/20 ) Abdomen/Kub 1view (08/08/20 12:00) Ns Iv 1000 Ml (Sodium Chloride 0.9%) (08/08/20 12:00) Promethazine Injection (Phenergan Injec (08/08/20 12:15) Metoclopramide Injection (Reglan Injecti (08/08/20 12:15) Clear Liquid (08/08/20 Lunch) General/Regular (08/09/20 Lunch) Iron Sucrose Injection (Venofer Injectio (08/09/20 11:15) Cyanocobalamin Injection (Vitamin B-12 I (08/09/20 11:15) Rehab Nursing Orders: Ongoing Assess. of Cognitive Status, Ongoing Assess. of Function Status, Bladder Management, Bladder Scan, Bladder Training, Bowel Management, Bowel Training, Disease Management & Educaiton, DVT Prophylaxis, Fall Prevention, Fluid/Electrolyte/Nutrition Mgmt, Infection Prevention, Medication Management & Education, Management of Risks & Complications, Management of Skin Intergrity, Nutrition Management, Pain Management, Patient/Family Support, Safety Management, Wound Management Intensity of Therapy to be met Patient to be seen: Min.3h per day/5 of 7d PT IPOC Problem List: Activity Tolerance, Functional Strength, Safety, Balance, Gait, Transfer, Bed Mobility, ROM Treatment Plan: Continue Plan of Care Bed Mobility, Education, Functional Activity Papa, Functional Strength, Group Therapy, Gait, Safety, Therapeutic Exercise, Transfers Treatment Duration: Aug 28, 2020 Frequency: At least 5 of 7 days/Wk (IRF) Estimated Hrs Per Day: 1.5 hours per day OT IPOC Problems: Decreased Activ Tolerance, Decreased Safety Aware, Decreased UE Strength, Impaired Bed Mobility, Impaired Funct Balance, Impaired I ADL's, Impaired Self-Care Skills OT Treatment, Training and Edu: Yes Plan of Care: ADL Retraining, Caregiver Training, Concurrent Therapy, Functional Mobility, Group Exercise/Act as Ind, UE Funct Exercise/Act, W/C Management Training Treatment Duration: Aug 21, 2020 Frequency: At least 5 of 7 days/Wk (IRF) Estimated Hrs Per Day: 1.[address] IPOC Speech Therapy Treatment Plan: Discontinue ST Treatment Duration: Aug 07, 2020 Frequency: 1 time per week Estimated Hrs Per Day: .5 hour per day Repairer Resistance Welding Machines/Case Mgmt Repairer Resistance Welding Machines/Case Managemen: Discharge Planning Dietitian/Backup Administrative Coordinator Dietitian/Backup Administrative Coordinator to monitor nutritional status and make changes and/or recommendations as needed and work with speech pathology on dietary upgrades as the occur. Physician IPOC Medical Issues being managed closely and that require the 24 hour availability of a physician: Patient with recent fall and hip fracture now with pain and N/V and weakness and will be at night risk for decompensation Medical Issues: Bowel/Bladder Function, DVT Prophylaxis, Falls Precautions, Fluid/Electrolyte/Nutrition Balance, Infection Protection, Pain Management Brief Synthesis of Preadmission Screen, Post-Admission Evaluation, and Therapy Evaluations: PT OT will focus on regaining function and ambulatory skills and teach use of AD devices and improve independence in ADL's Medical Prognosis: Good Anticipated Length of Stay: 10 days CHICHI KIM DO Aug 08, 2020 12:03
[2020-08-08] MEDS: NS IV 1000 ML 1,000 ML IV SCH (12:41)
[2020-08-08] MEDS: METOCLOPRAMIDE INJ 10 MG/2 ML (REGLAN) IVP SCH ×2 (12:41→17:22)
--- NOTE | 2020-08-08 13:07 | Diagnostic Imaging Report ---
REASON FOR EXAM: Nausea and vomiting. Ileus. COMPARISON: None TECHNIQUE: frontal supine view of the abdomen FINDINGS: No evidence of bowel obstruction or large collections of free intraperitoneal air. A mild amount of stool seen in the colon. Postcholecystectomy clips are noted in the right upper quadrant. Left hip arthroplasty changes are noted. No acute osseous abnormalities. IMPRESSION: No evidence of bowel obstruction or large collection of free intraperitoneal air. Dictated by: Dictated on workstation # [id number]
[2020-08-08] MEDS: PROMETHAZINE INJ 25 MG/ML (PHENERGAN) AMP IVP PRN ×2 (14:29→21:28)
[2020-08-08 17:13] VITALS: BP 161/69
[2020-08-08 21:40] VITALS: BP 157/67
[2020-08-09] MEDS: METOCLOPRAMIDE INJ 10 MG/2 ML (REGLAN) IVP SCH ×4 (00:17→17:15)
[2020-08-09] MEDS: NS IV 1000 ML 1,000 ML IV SCH ×2 (03:09→17:27)
[2020-08-09 06:00] VITALS: BP 149/66
[2020-08-09] MEDS: MULTIVIT W/MINERALS TAB (THERAGRAN M) PO SCH (06:17)
[2020-08-09] MEDS: HYDROcodone/APAP 7.5 MG/325 MG (LORTAB, LORCET PLUS) TABLET PO PRN ×4 (07:52→21:32)
[2020-08-09 08:30] VITALS: BP 130/64
[2020-08-09] MEDS: ENOXAPARIN 40 MG/0.4 ML (LOVENOX) SYR SC SCH (08:59)
[2020-08-09] MEDS: ASPIRIN E.C. 81 MG (ECOTRIN) TAB PO SCH (08:59)
[2020-08-09] MEDS: CARVEDILOL 12.5 MG (COREG) TABLET PO SCH ×2 (08:59→21:32)
[2020-08-09] MEDS: LOSARTAN 100 MG (COZAAR) TABLET PO SCH (08:59)
[2020-08-09] MEDS: DOCUSATE SODIUM 100 MG (COLACE) CAP PO SCH ×2 (09:00→21:42)
[2020-08-09] MEDS: polyethylene glycoL POWDER 17 GM (MIRALAX) PACK PO SCH ×2 (09:00→21:42)
[2020-08-09] MEDS: SENNOSIDES 8.6 MG (SENOKOT) TAB PO SCH ×2 (09:00→21:42)
[2020-08-09] MEDS ORDERED: CYANOCOBALAMIN INJ 1000 MCG/ML IM ONE (11:15)
--- NOTE | 2020-08-09 11:49 | PM&R Progress Note ---
Subjective HPI/CC On Admission Date Seen by Provider: Aug 09, 2020 Time Seen by Provider: 11:30 Subjective/Events-last exam 08/09/20: Improved No N/V reported but is picky about eating Changing diet to regular so she can choose Flatus+ Has family issues since she disowned her children and her is dependent on her Bladder scan will be performed 08/08/20: Patient with continued N/V NPO status ordered KUB ordered to r/o obstruction and ileus Iron level will be ordered hgb 9.6 IVF started Review of Systems General: Fatigue Gastrointestinal: Nausea Musculoskeletal: leg pain Objective Exam Vital Signs Vital Signs Date Time Temp Pulse Resp B/P (MAP) Pulse Ox O2 Delivery O2 Flow Rate FiO2 08/09/20 09:06 Room Air 08/09/20 06:00 36.8 69 16 149/66 (93) 94 Capillary Refill : Less Than 3 Seconds General Appearance: No Apparent Distress, WD/WN, Anxious, Chronically ill HEENT: PERRL/EOMI, Normal ENT Inspection, Pharynx Normal Neck: Full Range of Motion, Normal Inspection, Non Tender, Supple, Carotid Bruit Respiratory: Chest Non Tender, Lungs Clear, Normal Breath Sounds, No Accessory Muscle Use, No Respiratory Distress Cardiovascular: Regular Rate, Rhythm, No Edema, No Gallop, No JVD, No Murmur, Normal Peripheral Pulses Gastrointestinal: Normal Bowel Sounds, No Organomegaly, No Pulsatile Mass, Non Tender, Soft Back: Normal Inspection, No CVA Tenderness, No Vertebral Tenderness Extremity: Normal Capillary Refill, Normal Inspection, Normal Range of Motion (except left leg 3/5 strength), Non Tender, No Calf Tenderness, No Pedal Edema Neurologic/Psychiatric: Alert, Oriented x3, No Motor/Sensory Deficits, Normal Mood/Affect Skin: Normal Color, Warm/Dry Lymphatic: No Adenopathy Results/Procedures Lab Patient resulted labs reviewed. FIM Transfers Therapy Code Descriptions/Definitions Functional [place] Measure: 0=Not Assessed/NA 4=Minimal Assistance 1=Total Assistance 5=Supervision or Setup 2=Maximal Assistance 6=Modified [place] 3=Moderate Assistance 7=Complete IndependenceSCALE: Activities may be completed with or without assistive devices. 8-Otfrghnlri-awnfgzq completes the activity by him/herself with no assistance from a helper. 5-Set-up or Clean-up Assistance-helper sets up or cleans up; patient completes activity. [place] assists only prior to or following the activity. 4-Supervision or Touching Assistance-helper provides verbal cues and/or touching/steadying and/or contact guard assistance as patient completes activity. Assistance may be provided throughout the activity or intermittently. 3-Partial/Moderate Assistance-helper does LESS THAN HALF the effort. [place] lifts, holds or supports trunk or limbs, but provides less than half the effort. 2-Substantial/Maximal Assistance-helper does MORE THAN HALF the effort. [place] lifts or holds trunk or limbs and provides more than half the effort. 2-Ocvjzusov-hmxvco does ALL the effort. Patient does none of the effort to complete the activity. Or, the assistance of 2 or more helpers is required for the patient to complete the activity. If activity was not attempted, code reason: 7-Patient Refused. 9-Not Applicable-not attempted and the patient did not perform the activity before the current illness, exacerbation or injury. 10-Not Attempted due to Environmental Limitations-(lack of equipment, weather restraints, etc.). 88-Not Attempted due to Medical Conditions or Safety Concerns. Roll Left to Right (QC): 3 Sit to Lying (QC): 3 Sit to Stand (QC): 4 Chair/Uoq-dt-Bxhum Xfer(QC): 4 Car Transfer (QC): 3 Gait Training Does the Patient Walk?: Yes Walk 10 feet (QC): 4 Walk 50 ft with 2 Turns(QC): 88 Walk 150 ft (QC): 88 Walking 10ft/uneven surface-QC: 88 Gait Assistive Device: FWW Wheelchair Training Does the Pt Use a Wheelchair?: Yes Distance: 20' Wheel 50 ft with 2 turns (QC): 88 Wheel 150 ft (QC): 88 Type of Wheelchair: Manual Stair Training #of Steps: 1 1 Step (curb) (QC): 3 4 Steps (QC): 88 12 Steps (QC): 88 Balance Picking up an Object (QC): 88 ADL-Treatment Eating (QC): 6 (pt able to bring food/ water to mouth, good coordination. ) Oral Hygiene (QC): 5 (Set up, pt took out dentures to soak) Shower/Bathe Self (QC): 7 (denies at this time, see later session.) Upper Body Dressing (QC): 7 (denies at this time, see later session.) Lower Body Dressing (QC): 3 (ModA, pt instructed to use head cashier to don pants but required mod assist to thread feet through) On/Off Footwear (QC): 3 (ModA, pt able to doff both socks with dressing stick and don socks with sock aid. Pt required assistance to adjust) Toileting Hygiene (QC): 4 (CGA while standing) Assessment/Plan Assessment and Plan Assess & Plan/Chief Complaint Assessment: s/p left hip fracture repair HTN Fibromyalgia Former smoker h/o DVT Plan: BM regimen IRF protocol Monitor closely 08/08/20: NPO IVF Reglan Add iron level KUB 08/09/20: Improved Advance diet IVF until tomorrow Bladder scan (1) Closed left hip fracture Status: Acute (2) History of DVT of lower extremity (3) Former smoker (4) Fibromyalgia (5) Neuropathy (6) Fall from slipping on ice Status: Acute (7) HTN (hypertension) Status: Chronic CHICHI KIM DO Aug 09, 2020 11:49
[2020-08-09] MEDS: IRON SUCROSE 200 MG/10 ML (VENOFER) VIAL IV SCH (12:03)
[2020-08-09 17:21] VITALS: BP 173/67
[2020-08-09 21:28] VITALS: BP 173/78
[2020-08-10] MEDS: METOCLOPRAMIDE INJ 10 MG/2 ML (REGLAN) IVP SCH ×5 (00:33→23:59)
[2020-08-10] MEDS: HYDROcodone/APAP 7.5 MG/325 MG (LORTAB, LORCET PLUS) TABLET PO PRN ×7 (01:16→22:13)
[2020-08-10 05:41] LABS: BASOPHILS % (AUTO) 0 % (0-10); EOSINOPHILS # (AUTO) 0.2 10^3/uL (0.0-0.3); EOSINOPHILS % (AUTO) 3 % (0-10); HEMATOCRIT 25 % (35-52); HEMOGLOBIN 8.7 g/dL (11.5-16.0); LYMPHOCYTES # (AUTO) 1.4 10^3/uL (1.0-4.0); LYMPHOCYTES % (AUTO) 21 % (12-44); MEAN CORPUSCULAR HEMOGLOBIN 31 pg (25-34); MEAN CORPUSCULAR HGB CONC 34 g/dL (32-36); MEAN CORPUSCULAR VOLUME 91 fL (80-99); MEAN PLATELET VOLUME 10.9 fL (9.0-12.2); MONOCYTES # (AUTO) 0.8 10^3/uL (0.0-1.0); MONOCYTES % (AUTO) 11 % (0-12); NEUTROPHILS # (AUTO) 4.4 10^3/uL (1.8-7.8); NEUTROPHILS % (AUTO) 64 % (42-75); PLATELET COUNT 290 10^3/uL (130-400); WHITE BLOOD COUNT 6.9 10^3/uL (4.3-11.0)
[2020-08-10 05:53] LABS: ALBUMIN 2.6 GM/DL (3.2-4.5); CHLORIDE 107 MMOL/L (98-107); POTASSIUM 3.3 MMOL/L (3.6-5.0); SODIUM 137 MMOL/L (135-145)
[2020-08-10 05:55] LABS: CALCIUM 7.2 MG/DL (8.5-10.1)
[2020-08-10 05:56] LABS: GLUCOSE 96 MG/DL (70-105); TOTAL PROTEIN 4.9 GM/DL (6.4-8.2)
[2020-08-10 05:57] LABS: CARBON DIOXIDE 19 MMOL/L (21-32)
[2020-08-10 05:58] LABS: BILIRUBIN,TOTAL 1.1 MG/DL (0.1-1.0)
[2020-08-10 05:59] LABS: ALKALINE PHOSPHATASE 64 U/L (40-136)
[2020-08-10 06:00] LABS: CREATININE SERUM 0.75 MG/DL (0.60-1.30); GFR ESTIMATED > 60
[2020-08-10 06:01] LABS: BUN/CREATININE RATIO 19
[2020-08-10 06:02] LABS: ALANINE AMINOTRANSFERASE 35 U/L (0-55)
[2020-08-10 06:26] VITALS: BP 153/68
[2020-08-10] MEDS: MULTIVIT W/MINERALS TAB (THERAGRAN M) PO SCH (06:32)
[2020-08-10] MEDS: NS IV 1000 ML 1,000 ML IV SCH ×2 (07:13→21:15)
[2020-08-10] MEDS: ASPIRIN E.C. 81 MG (ECOTRIN) TAB PO SCH (07:27)
[2020-08-10] MEDS: ENOXAPARIN 40 MG/0.4 ML (LOVENOX) SYR SC SCH (07:27)
[2020-08-10] MEDS: LOSARTAN 100 MG (COZAAR) TABLET PO SCH (07:27)
[2020-08-10] MEDS: CARVEDILOL 12.5 MG (COREG) TABLET PO SCH ×2 (07:28→22:13)
[2020-08-10] MEDS: DOCUSATE SODIUM 100 MG (COLACE) CAP PO SCH ×2 (07:35→22:13)
[2020-08-10] MEDS: polyethylene glycoL POWDER 17 GM (MIRALAX) PACK PO SCH ×2 (07:35→21:00)
[2020-08-10] MEDS: SENNOSIDES 8.6 MG (SENOKOT) TAB PO SCH ×2 (07:35→22:12)
--- NOTE | 2020-08-10 08:58 | Occupational Ther Daily Note ---
OT Current Status-Daily Note Subjective Pt alert, sitting in recliner. Pt agrees to therapy. Pt c/o pain 5/10, reported to nrsg then nrsg brought meds. Mental Status/Objective Patient Orientation: Person, Place, Time, Situation Attachments: IV ADL-Treatment Pt declines shower, agrees to sponge bath. Pt states that she has already toileted today. Pt also states that she only has lower dentures here the other is at home. Pt declines oral care stating that she does not have teeth in. Attempted to get pt to place the dentures that is here and pt stated that they are too expensive and does not want to lose them. Set up for sponge bath then pt is able to complete own sponge bath with SBA using LH sponge for lower legs and FWW to stabilize self in standing to cleanse bul[place]o area/buttocks. Set up for upper body dressing. Set up and SBA for lower body dressing using AE to adhere to hip precautions. Pt able to set up own meal and use regular utensils to eat. Therapy Code Descriptions/Definitions Functional [place] Measure: 0=Not Assessed/NA 4=Minimal Assistance 1=Total Assistance 5=Supervision or Setup 2=Maximal Assistance 6=Modified [place] 3=Moderate Assistance 7=Complete IndependenceSCALE: Activities may be completed with or without assistive devices. 8-Xfoeogcnae-qmvwzxw completes the activity by him/herself with no assistance from a helper. 5-Set-up or Clean-up Assistance-helper sets up or cleans up; patient completes activity. [place] assists only prior to or following the activity. 4-Supervision or Touching Assistance-helper provides verbal cues and/or touching/steadying and/or contact guard assistance as patient completes activity. Assistance may be provided throughout the activity or intermittently. 3-Partial/Moderate Assistance-helper does LESS THAN HALF the effort. [place] lif ts, holds or supports trunk or limbs, but provides less than half the effort. 2-Substantial/Maximal Assistance-helper does MORE THAN HALF the effort. [place] lifts or holds trunk or limbs and provides more than half the effort. 7-Neknbtmbw-gbxaym does ALL the effort. Patient does none of the effort to complete the activity. Or, the assistance of 2 or more helpers is required for the patient to complete the activity. If activity was not attempted, code reason: 7-Patient Refused. 9-Not Applicable-not attempted and the patient did not perform the activity before the current illness, exacerbation or injury. 10-Not Attempted due to Environmental Limitations-(lack of equipment, weather restraints, etc.). 88-Not Attempted due to Medical Conditions or Safety Concerns. Eating (QC): 6 Oral Hygiene (QC): 7 Shower/Bathe Self (QC): 4 Upper Body Dressing (QC): 5 Lower Body Dressing (QC): 4 On/Off Footwear: 4 Other Treatment Pt given HEP and medium resistance theraband for B UE strengthening. Skilled instruction and modifications needed for technique. Pt required verbal/gestural cues to complete exercises with correct positioning. 1 set 10 reps of 6 exercises completed. Instructed pt to complete 2-3x's a day when doing 1 set 10 reps of each exercise. Min A to lift L LE into bed. After session, pt lying in bed with call light/phone in reach. All needs met in room. OT Short Term Goals Short Term Goals Shower/bathe self: 3 Upper body dressin Lower body dressin Putting on/taking off footwear: 3 OT [facility] Goals [facility] Goals Time Frame: Aug 21, 2020 Eating (QC): 6 Oral Hygiene (QC): 6 Toileting Hygiene (QC): 6 Shower/Bathe Self (QC): 6 Upper Body Dressing (QC): 6 Lower Body Dressing (QC): 6 On/Off Footwear (QC): 6 Additional Goals: 1-Demonstrate ADL Tasks, 2-Verbalize Understanding, 3- ImproveStrength/[place] 1=Demonstrate adherence to instructed precautions during ADL tasks. 2=Patient will verbalize/demonstrate understanding of assistive devices/modifications for ADL. 3=Patient will improve strength/tolerance for activity to enable patient to perform ADL's. OT Education/Plan Problem List/Assessment Assessment: Decreased Activ Tolerance, Decreased UE Strength, Impaired Bed Mobility, Impaired Funct Balance, Impaired I ADL's, Impaired Self-Care Skills Discharge Recommendations Plan/Recommendations: Continue POC Treatment Plan/Plan of Care Patient would benefit from OT for education, treatment and training to promote independence in ADL's, mobility, safety and/or upper extremity function for ADL's. Plan of Care: ADL Retraining, Caregiver Training, Concurrent Therapy, Functional Mobility, Group Exercise/Act as Ind, UE Funct Exercise/Act, W/C Management Training Treatment Duration: Aug 21, 2020 Frequency: At least 5 of 7 days/Wk (IRF) Estimated Hrs Per Day: 1.5 hours per day Agreement: Yes Rehab Potential: Fair Time/GCodes Start Time: 07:30 Stop Time: 09:00 Total Time Billed (hr/min): 90 Billed Treatment Time 1 visit-ADL 5 (75 min) EX 1 (15 min) BRICE BATISTA Aug 10, 2020 08:58
--- NOTE | 2020-08-10 09:04 | PM&R Progress Note ---
Subjective HPI/CC On Admission Date Seen by Provider: Aug 10, 2020 Time Seen by Provider: 09:15 Subjective/Events-last exam 08/10/20: Pt doing a little better but still having burning in her stomach Dr. Emanuel will be consulted Midline will be placed for iron infusions Bowels moved today Scared to eat 08/09/20: Improved No N/V reported but is picky about eating Changing diet to regular so she can choose Flatus+ Has family issues since she disowned her children and her is dependent on her Bladder scan will be performed 08/08/20: Patient with continued N/V NPO status ordered KUB ordered to r/o obstruction and ileus Iron level will be ordered hgb 9.6 IVF started Review of Systems Gastrointestinal: Nausea Objective Exam Vital Signs Vital Signs Date Time Temp Pulse Resp B/P (MAP) Pulse Ox O2 Delivery O2 Flow Rate FiO2 08/10/20 17:57 36.4 69 18 185/75 (111) 95 Room Air Capillary Refill : Less Than 3 Seconds General Appearance: No Apparent Distress, WD/WN, Anxious, Chronically ill HEENT: PERRL/EOMI, Normal ENT Inspection, Pharynx Normal Neck: Full Range of Motion, Normal Inspection, Non Tender, Supple, Carotid Bruit Respiratory: Chest Non Tender, Lungs Clear, Normal Breath Sounds, No Accessory Muscle Use, No Respiratory Distress Cardiovascular: Regular Rate, Rhythm, No Edema, No Gallop, No JVD, No Murmur, Normal Peripheral Pulses Gastrointestinal: Normal Bowel Sounds, No Organomegaly, No Pulsatile Mass, Non Tender, Soft Back: Normal Inspection, No CVA Tenderness, No Vertebral Tenderness Extremity: Normal Capillary Refill, Normal Inspection, Normal Range of Motion (except left leg 3/5 strength), Non Tender, No Calf Tenderness, No Pedal Edema Neurologic/Psychiatric: Alert, Oriented x3, No Motor/Sensory Deficits, Normal Mood/Affect Skin: Normal Color, Warm/Dry Lymphatic: No Adenopathy Results/Procedures Lab Laboratory Tests 08/10/20 04:59 Patient resulted labs reviewed. FIM Transfers Therapy Code Descriptions/Definitions Functional [place] Measure: 0=Not Assessed/NA 4=Minimal Assistance 1=Total Assistance 5=Supervision or Setup 2=Maximal Assistance 6=Modified [place] 3=Moderate Assistance 7=Complete IndependenceSCALE: Activities may be completed with or without assistive devices. 5-Cegslpodrh-gxldczt completes the activity by him/herself with no assistance fr om a helper. 5-Set-up or Clean-up Assistance-helper sets up or cleans up; patient completes activity. [place] assists only prior to or following the activity. 4-Supervision or Touching Assistance-helper provides verbal cues and/or touching/steadying and/or contact guard assistance as patient completes activity. Assistance may be provided throughout the activity or intermittently. 3-Partial/Moderate Assistance-helper does LESS THAN HALF the effort. [place] lifts, holds or supports trunk or limbs, but provides less than half the effort. 2-Substantial/Maximal Assistance-helper does MORE THAN HALF the effort. [place] lifts or holds trunk or limbs and provides more than half the effort. 3-Mpyzcvlyy-qogsza does ALL the effort. Patient does none of the effort to complete the activity. Or, the assistance of 2 or more helpers is required for the patient to complete the activity. If activity was not attempted, code reason: 7-Patient Refused. 9-Not Applicable-not attempted and the patient did not perform the activity before the current illness, exacerbation or injury. 10-Not Attempted due to Environmental Limitations-(lack of equipment, weather restraints, etc.). 88-Not Attempted due to Medical Conditions or Safety Concerns. Roll Left to Right (QC): 3 Sit to Lying (QC): 3 Sit to Stand (QC): 4 Chair/Ckn-mx-Pwzju Xfer(QC): 4 Car Transfer (QC): 3 Gait Training Does the Patient Walk?: Yes Walk 10 feet (QC): 4 Walk 50 ft with 2 Turns(QC): 88 Walk 150 ft (QC): 88 Walking 10ft/uneven surface-QC: 88 Gait Assistive Device: FWW Wheelchair Training Does the Pt Use a Wheelchair?: Yes Distance: 20' Wheel 50 ft with 2 turns (QC): 88 Wheel 150 ft (QC): 88 Type of Wheelchair: Manual Stair Training #of Steps: 1 1 Step (curb) (QC): 3 4 Steps (QC): 88 12 Steps (QC): 88 Balance Picking up an Object (QC): 88 ADL-Treatment Eating (QC): 6 (pt able to bring food/ water to mouth, good coordination. ) Oral Hygiene (QC): 5 (Set up, pt took out dentures to soak) Shower/Bathe Self (QC): 7 (denies at this time, see later session.) Upper Body Dressing (QC): 7 (denies at this time, see later session.) Lower Body Dressing (QC): 3 (ModA, pt instructed to use shift leader to don pants but required mod assist to thread feet through) On/Off Footwear (QC): 3 (ModA, pt able to doff both socks with dressing stick and don socks with sock aid. Pt required assistance to adjust) Toileting Hygiene (QC): 4 (CGA while standing) Assessment/Plan Assessment and Plan Assess & Plan/Chief Complaint Assessment: s/p left hip fracture repair HTN Fibromyalgia Former smoker h/o DVT Hypokalemia Plan: BM regimen IRF protocol Monitor closely 08/08/20: NPO IVF Reglan Add iron level KUB 08/09/20: Improved Advance diet IVF until tomorrow Bladder scan 08/10/20: Dr Emanuel consult Replaced potassium (1) Closed left hip fracture Status: Acute (2) History of DVT of lower extremity (3) Former smoker (4) Fibromyalgia (5) Neuropathy (6) Fall from slipping on ice Status: Acute (7) HTN (hypertension) Status: Chronic CHICHI KIM DO Aug 10, 2020 09:04
[2020-08-10] MEDS: POTASSIUM CL 10MEQ/50ML IVPB 50 ML IV SCH ×4 (09:47→14:21)
--- NOTE | 2020-08-10 10:59 | Physical Therapy Daily Note ---
PT Daily Note-Current Subjective Pt. agrees to Rx. AT end of Rx states she has some pain in left hip at 5/10 and requests a pain pill. Pt.also c/o pain in left upper lateral arm , no bruising or edema noted. Pain Numeric Pain Scale: 5-Moderate Pain Location: Left Location Body Site: Hip Pain Description: Ache Mental Status Patient Orientation: Normal For Age Attachments: Other-See Comments (mask), IV Transfers SCALE: Activities may be completed with or without assistive devices. 6-Zedjtolxqr-ffgpnfr completes the activity by him/herself with no assistance from a helper. 5-Set-up or Clean-up Assistance-helper sets up or cleans up; patient completes activity. [place] assists only prior to or following the activity. 4-Supervision or Touching Assistance-helper provides verbal cues and/or touching/steadying and/or contact guard assistance as patient completes activity. Assistance may be provided throughout the activity or intermittently. 3-Partial/Moderate Assistance-helper does LESS THAN HALF the effort. [place] lifts, holds or supports trunk or limbs, but provides less than half the effort. 2-Substantial/Maximal Assistance-helper does MORE THAN HALF the effort. [place] lifts or holds trunk or limbs and provides more than half the effort. 8-Hkmnggvdp-htyxyx does ALL the effort. Patient does none of the effort to complete the activity. Or, the assistance of 2 or more helpers is required for the patient to complete the activity. If activity was not attempted, code reason: 7-Patient Refused. 9-Not Applicable-not attempted and the patient did not perform the activity before the current illness, exacerbation or injury. 10-Not Attempted due to Environmental Limitations-(lack of equipment, weather restraints, etc.). 88-Not Attempted due to Medical Conditions or Safety Concerns. Roll Left & Right (QC): 4 Sit to Lying (QC): 4 Lying to Sitting/Side of Bed(Q: 3 Sit to Stand (QC): 4 Chair/Kuj-dh-Nhipa Xfer(QC): 4 Toilet Transfer (QC): 4 pt. improved during Rx with sup to sit and sit to sup. Pt. brought to gym with flat, slick firm surface and practiced in out on left simulating home Weight Bearing Left Lower Extremity: Left Weight Bearing/Tolerated JOVANI precautions Gait Training Does the Patient Walk?: Yes Walk 10 feet (QC): 4 Gait Persons Needed: 1 Gait Assistive Device: FWW 15-20 ft x 4 CGA and assist IV, slow, careful Exercises Supine Ex: Ankle pumps, Quad Set, Glut sets, Heel Slides, Short Arc Quads, Scooting, Straight leg raise (right only), Hip abd/add Supine Reps: 20 Seated Therapy Exercises: Ankle pumps, Sit to stand, Long arc quads, Hip abd/add Seated Reps: 12 Treatments THR ex protocol, TRFs, gait, toileting, Assessment Current Status: Good Progress PT Short Term Goals Short Term Goals Time Frame: Aug 14, 2020 Roll Left & Right: 6 Sit to lyin Lying to sitting on side of be: 4 Sit to stand: 4 Chair/gvm-ox-jbahu transfer: 4 Walk 10 feet: 4 Walk 50 feet with two turns: 4 PT Senior Care Goals [place] Plant Operator Goals PT Senior Care Goals Time Frame: Aug 28, 2020 Roll Left & Right (QC): 6 Sit to Lying (QC): 6 Lying-Sitting on Side/Bed(QC): 6 Sit to Stand (QC): 6 Chair/Wqy-yk-Uldmf Xfer(QC): 6 Toilet Transfer (QC): 6 Car Transfer (QC): 6 Does the Patient Walk: Yes Walk 10 feet (QC): 6 Walk 50ft with 2 Turns (QC): 6 Walk 150 ft (QC): 6 Walking 10ft on Uneven Surface: 6 1 Step (curb) (QC): 5 4 Steps (QC): 5 12 Steps (QC): 88 Picking up an Object (QC): 88 Wheel 50 feet with 2 turns (QC: 9 Wheel 150 feet: 9 PT Plan Treatment/Plan Treatment Plan: Continue Plan of Care Treatment Plan: Bed Mobility, Education, Functional Activity Papa, Functional Strength, Group Therapy, Gait, Safety, Therapeutic Exercise, Transfers Treatment Duration: Aug 28, 2020 Frequency: At least 5 of 7 days/Wk (IRF) Estimated Hrs Per Day: 1.5 hours per day Patient and/or Family Agrees t: Yes Safety Risks/Education Patient Education: Gait Training, Transfer Techniques, Correct Positioning, Disease Process, Safety Issues Teaching Recipient: Patient Teaching Methods: Demonstration, Discussion Response to Teaching: Verbalize Understanding, Return Demonstration, Reinforcement Needed Time/GCodes Time In: 930 Time Out: 1100 Total Billed Treatment Time: 90 Total Billed Treatment 1,EX30m,FA40m,GT20m JANES 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
--- NOTE | 2020-08-10 14:08 | Consultation - Surgery ---
LETTY CANDELARIO MED STUDENT 08/10/20 1408: History of Present Illness History of Present Illness Patient Consulted On(doroteo/time) 08/10/20 14:03 Date Seen by Provider: Aug 10, 2020 Time Seen by Provider: 14:03 History of Present Illness 80 yr old female admitted to in-patient rehabilitation following surgery for left hip fracture (08/06/20). Consulted by Dr. Fiore for possible EGD due to new onset acid reflux and anemia. Pt describes that the reflux started on Monday. Denies previous c/o reflux prior to surgery. Last episode of acid reflux was Monday described as burning pain in epigastric area. States it is not there currently. Pt also notes an episode of nausea and vomiting on Monday, states the vomit was green in color and occurred after drinking a gatorade. Previous colonoscopy 7 years ago normal. Previous EGD 7 years ago was also normal. Denies fever, chills, SOB. Allergies and Home Medications Allergies Coded Allergies: morphine (Verified Allergy, Mild, 08/04/20) divalproex sodium (Verified Allergy, Unknown, 08/04/20) iodine (Verified Allergy, Unknown, 08/04/20) meloxicam (Verified Allergy, Unknown, 08/04/20) rosuvastatin (Verified Allergy, Unknown, 08/04/20) Home Medications C,E,Zinc,Copper 11/Fwynx9x/Lut 1 Each Capsule, 1 EACH PO DAILY, (Reported) Cholecalciferol (Vitamin D3) 25 Mcg Capsule, 25 MCG PO BID, (Reported) Gabapentin 600 Mg Tablet, 600 MG PO DAILY, (Reported) Gabapentin 600 Mg Tablet, 1,200 MG PO HS, (Reported) TAKES 2 (600MG) TABS Losartan Potassium 25 Mg Tablet, 25 MG PO DAILY, (Reported) Red Yeast Rice 600 Mg Capsule, 600 MG PO BID, (Reported) Ubidecarenone 100 Mg Capsule, 100 MG PO HS, (Reported) [Hylands Leg Cramp] , 1 EA PO HS, (Reported) Past Okknxsc-Qjbnuq-Kancts Hx Patient Social History Smoking Status: Former Smoker Former Smoker, Quit: Jun 19, 1989 Type Used: Cigarettes Recent Hopitalizations: No Alcohol Use?: No Have you traveled recently?: No Immunizations Up To Date Date of Influenza Vaccine: Mar 04, 2020 Seasonal Allergies Seasonal Allergies: Yes Surgeries History of Surgeries: Yes (BLADDER SLING) Surgeries: Abdominal, Bladder Surgery, Gallbladder, Hysterectomy Respiratory History of Respiratory Disorde: No Cardiovascular History of Cardiac Disorders: Yes Cardiac Disorders: Deep Vein Thrombosis, High Cholesterol, Hypertension, Peripheral Vascular Neurological History of Neurological Disord: Yes Neurological Disorders: Neuropathy Genitourinary History of Genitourinary Disor: No Gastrointestinal History of Gastrointestinal Di: Yes Gastrointestinal Disorders: Gastroesophageal Reflux, Irritable Bowel Musculoskeletal History of Musculoskeletal Dis: Yes Musculoskeletal Disorders: Fibromyalgia Endocrine History of Endocrine Disorders: No HEENT History of HEENT Disorders: Yes HEENT Disorders: Cataract Cancer History of Cancer: No Psychosocial History of Psychiatric Problem: No Integumentary History of Skin or Integumenta: Yes (DRY SKIN) Family Medical History Significant Family History: Other Conditions/Hx (father- alcoholism) Review of Systems-General Constitutional: No chills, No dizziness, No fever; weakness (LLE) EENTM: No blurred vision, No double vision Respiratory: No cough, No short of breath Cardiovascular: No chest pain; edema Gastrointestinal: abdominal pain (epigastric); No constipation, No diarrhea, No hematemesis; heartburn, nausea, vomiting Genitourinary: No dysuria; hesitancy (states she always has this); No pain : No Musculoskeletal: joint pain (Left hip); No muscle pain Skin: No rash; other (Bruise on right forearm) Psychiatric/Neurological: Numbness (LLE); Denies Tingling; Weakness (Left side due to hip fracture) Physical Exam-General Problems Physical Exam Vital Signs Vital Signs - First Documented 08/07/20 10:23 Temp 35.9 Pulse 68 Resp 21 B/P (MAP) 124/72 (89) Pulse Ox 96 O2 Delivery Room Air Capillary Refill : Less Than 3 Seconds General Appearance: WD/WN, no apparent distress HEENT: PERRL/EOMI Neck: non-tender, full range of motion, supple Respiratory: lungs clear, normal breath sounds, no respiratory distress, no accessory muscle use Cardiovascular: regular rate, rhythm, no murmur Peripheral Pulses: 2+ Dorsalis Pedis (R), 2+ Left Dors-Pedis (L), 2+ Radial Pulses (R), 2+ Radial Pulses (L) Gastrointestinal: non tender, soft; No distended Rectal: deferred Back: no vertebral tenderness Extremities: non-tender, pedal edema (mild/ 1+), other (LLE numbness) Neurologic/Psychiatric: alert, normal mood/affect, oriented x 3 Skin: normal color, warm/dry Lymphatic: no adenopathy Data Review Labs Laboratory Tests 08/10/20 04:59: White Blood Count 6.9, Red Blood Count 2.78L, Hemoglobin 8.7L, Hematocrit 25L, Mean Corpuscular Volume 91, Mean Corpuscular Hemoglobin 31, Mean Corpuscular Hemoglobin Concent 34, Red Cell Distribution Width 12.5, Platelet Count 290, Mean Platelet Volume 10.9, Immature Granulocyte % (Auto) 1, Neutrophils (%) (Auto) 64, Lymphocytes (%) (Auto) 21, Monocytes (%) (Auto) 11, Eosinophils (%) (Auto) 3, Basophils (%) (Auto) 0, Neutrophils # (Auto) 4.4, Lymphocytes # (Auto) 1.4, Monocytes # (Auto) 0.8, Eosinophils # (Auto) 0.2, Basophils # (Auto) 0.0, Immature Granulocyte # (Auto) 0.1, Sodium Level 137, Potassium Level 3.3L, Chloride Level 107, Carbon Dioxide Level 19L, Anion Gap 11, Blood Urea Nitrogen 14, Creatinine 0.75, Estimat Glomerular Filtration Rate > 60, BUN/Creatinine Ratio 19, Glucose Level 96, Calcium Level 7.2L, Corrected Calcium 8.3L, Total Bilirubin 1.1H, Aspartate Amino Transf (AST/SGOT) 63H, Alanine Aminotransferase (ALT/SGPT) 35, Alkaline Phosphatase 64, Total Protein 4.9L, Albumin 2.6L Assessment/Plan Assessment/Plan Assessment/Plan ASSESSMENT: Rule out GI bleed, acid reflux PLAN: Hemocult test, if positive possible EGD TYLER EMANUEL DO 08/10/20 1706: History of Present Illness History of Present Illness Time Seen by Provider: 14:19 History of Present Illness Surgery asked to consult regarding anemia and possible need for EGD. When I spoke to pt she denied any black or bloody BM's. Her Hg prior to surgery was 13 and after surgery it dropped to 10; has been steadily dropping since then. Denied hematemesis. Allergies and Home Medications Allergies Coded Allergies: morphine (Verified Allergy, Mild, 08/04/20) divalproex sodium (Verified Allergy, Unknown, 08/04/20) iodine (Verified Allergy, Unknown, 08/04/20) meloxicam (Verified Allergy, Unknown, 08/04/20) rosuvastatin (Verified Allergy, Unknown, 08/04/20) Home Medications C,E,Zinc,Copper 11/Clsxn9d/Lut 1 Each Capsule, 1 EACH PO DAILY, (Reported) Cholecalciferol (Vitamin D3) 25 Mcg Capsule, 25 MCG PO BID, (Reported) Gabapentin 600 Mg Tablet, 600 MG PO DAILY, (Reported) Gabapentin 600 Mg Tablet, 1,200 MG PO HS, (Reported) TAKES 2 (600MG) TABS Losartan Potassium 25 Mg Tablet, 25 MG PO DAILY, (Reported) Red Yeast Rice 600 Mg Capsule, 600 MG PO BID, (Reported) Ubidecarenone 100 Mg Capsule, 100 MG PO HS, (Reported) [Hylands Leg Cramp] , 1 EA PO HS, (Reported) Patient Home Medication List Home Medication List Reviewed: Yes Past Ysoxxgt-Mmfaqi-Wmucfu Hx Patient Social History Smoking Status: Former Smoker Surgeries History of Surgeries: Yes Surgeries: Gallbladder, Hysterectomy, Orthopedic (Left Hip) Respiratory History of Respiratory Disorde: No Cardiovascular History of Cardiac Disorders: No Neurological History of Neurological Disord: No Genitourinary History of Genitourinary Disor: No Gastrointestinal History of Gastrointestinal Di: Yes Gastrointestinal Disorders: Gastroesophageal Reflux Musculoskeletal History of Musculoskeletal Dis: Yes Musculoskeletal Disorders: Arthritis Endocrine History of Endocrine Disorders: No HEENT History of HEENT Disorders: No Cancer History of Cancer: No Psychosocial History of Psychiatric Problem: No Family Medical History Significant Family History: Diabetes (Denies parents had DM), Other Conditions/Hx (father- alcoholism) Review of Systems-General Constitutional: No chills, No dizziness, No fever; weakness (LLE) EENTM: No blurred vision, No double vision Respiratory: No cough, No short of breath Cardiovascular: No chest pain; edema Gastrointestinal: abdominal pain (epigastric); No constipation, No diarrhea; heartburn, nausea, vomiting Genitourinary: No dysuria, No hematuria; hesitancy (states she always has this) Musculoskeletal: joint pain (Left hip), joint swelling; No muscle pain; muscle stiffness Psychiatric/Neurological: Denies Anxiety, Denies Depressed; Numbness (LLE); Denies Tingling; Weakness (Left side due to hip fracture) Other Pt denies any hx of abnormal bleeding or bruising Physical Exam-General Problems Physical Exam General Appearance: WD/WN, no apparent distress Eyes: Bilateral Eye PERRL, Bilateral Eye EOMI HEENT: No scleral icterus (R), No scleral icterus (L) Neck: non-tender, full range of motion, supple Respiratory: lungs clear, normal breath sounds, no respiratory distress, no accessory muscle use Cardiovascular: regular rate, rhythm, no murmur Peripheral Pulses: 2+ Dorsalis Pedis (R), 2+ Left Dors-Pedis (L), 2+ Radial Pulses (R), 2+ Radial Pulses (L) Gastrointestinal: non tender, soft, no organomegaly; No distended Rectal: deferred Back: no vertebral tenderness Extremities: non-tender, normal capillary refill, pedal edema (mild/ 1+), other (LLE numbness) 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 Will order Hemoccult, monitor H/H and then consider EGD if her hemoglobin continues to trend down. Supervisory-Addendum Brief Verification & Attestation Participated in pt care: history, MDM, physical Personally performed: exam, history, MDM Care discussed with: Medical Student Procedures: n/a Verification and Attestation of Medical Student E/M Service A medical student performed and documented this service. I then reviewed and verified all information documented by the medical student and made modifications to such information, when appropriate. I personally performed a physical exam, medical decision making and then discussed any differences between the notes and made revisions as necessary to create one note. Tyler Emanuel , 08/10/20 , 17:09 LETTY CANDELARIO MED STUDENT Aug 10, 2020 14:08 TYLER EMANUEL DO Aug 10, 2020 17:06
[2020-08-10 17:57] VITALS: BP 185/75
[2020-08-10] MEDS: MELATONIN 3 MG TABLET PO PRN (22:12)
[2020-08-11] MEDS: NS IV 1000 ML 1,000 ML IV SCH (03:08)
[2020-08-11] MEDS: HYDROcodone/APAP 7.5 MG/325 MG (LORTAB, LORCET PLUS) TABLET PO PRN ×4 (04:50→20:46)
[2020-08-11] MEDS: METOCLOPRAMIDE INJ 10 MG/2 ML (REGLAN) IVP SCH ×3 (06:14→17:40)
[2020-08-11] MEDS: MULTIVIT W/MINERALS TAB (THERAGRAN M) PO SCH (06:14)
[2020-08-11 06:25] VITALS: BP 164/71
[2020-08-11] MEDS: IRON SUCROSE 200 MG/10 ML (VENOFER) VIAL IV SCH (08:45)
[2020-08-11] MEDS: ASPIRIN E.C. 81 MG (ECOTRIN) TAB PO SCH (08:45)
[2020-08-11] MEDS: ENOXAPARIN 40 MG/0.4 ML (LOVENOX) SYR SC SCH (08:45)
[2020-08-11] MEDS: SENNOSIDES 8.6 MG (SENOKOT) TAB PO SCH ×2 (08:45→20:48)
[2020-08-11] MEDS: DOCUSATE SODIUM 100 MG (COLACE) CAP PO SCH ×2 (08:46→20:45)
[2020-08-11] MEDS: LOSARTAN 100 MG (COZAAR) TABLET PO SCH (08:46)
[2020-08-11] MEDS: CARVEDILOL 12.5 MG (COREG) TABLET PO SCH ×2 (08:46→20:46)
[2020-08-11] MEDS: polyethylene glycoL POWDER 17 GM (MIRALAX) PACK PO SCH ×2 (08:46→20:48)
--- NOTE | 2020-08-11 08:54 | Occupational Ther Daily Note ---
OT Current Status-Daily Note Subjective Pt alert, sitting in recliner. Pt agrees to therapy. Pt states pain though does not rate, nrsg notified. Mental Status/Objective Patient Orientation: Person, Place, Time, Situation Attachments: IV ADL-Treatment Pt agrees to shower. Pt able to complete shower sitting on shower bench to cleanse all body parts using hand held shower, grabbars and LH sponge by self after set up. Pt does not have regular clothing and does not want to use any borrowed clothing from [facility]. Pt does demonstrate with hospital gown tied at neck that she is able to don/doff over head and thread B UE into sleeves independently after set up. Using lower body AE for dressing, pt is able to don/doff clothing with verbal and gestural cues on hazardous materials waste technician placement. Pt stands at sink to complete oral care, independently. Therapy Code Descriptions/Definitions Functional [place] Measure: 0=Not Assessed/NA 4=Minimal Assistance 1=Total Assistance 5=Supervision or Setup 2=Maximal Assistance 6=Modified [place] 3=Moderate Assistance 7=Complete IndependenceSCALE: Activities may be completed with or without assistive devices. 4-Ijmixwcaaz-cdymwrs completes the activity by him/herself with no assistance from a helper. 5-Set-up or Clean-up Assistance-helper sets up or cleans up; patient completes activity. [place] assists only prior to or following the activity. 4-Supervision or Touching Assistance-helper provides verbal cues and/or touching/steadying and/or contact guard assistance as patient completes activity. Assistance may be provided throughout the activity or intermittently. 3-Partial/Moderate Assistance-helper does LESS THAN HALF the effort. [place] lifts, holds or supports trunk or limbs, but provides less than half the effort. 2-Substantial/Maximal Assistance-helper does MORE THAN HALF the effort. [place] lifts or holds trunk or limbs and provides more than half the effort. 7-Idtokljkr-iisiby does ALL the effort. Patient does none of the effort to complete the activity. Or, the assistance of 2 or more helpers is required for the patient to complete the activity. If activity was not attempted, code reason: 7-Patient Refused. 9-Not Applicable-not attempted and the patient did not perform the activity before the current illness, exacerbation or injury. 10-Not Attempted due to Environmental Limitations-(lack of equipment, weather restraints, etc.). 88-Not Attempted due to Medical Conditions or Safety Concerns. Eating (QC): 7 (States that she does not eat breakfast.) Oral Hygiene (QC): 6 Shower/Bathe Self (QC): 5 Upper Body Dressing (QC): 5 Lower Body Dressing (QC): 4 On/Off Footwear: 5 Other Treatment Pt takes increased time to complete functional activities due to fatigue and needed recovery breaks. Pt ambulated using FWW to [facility] station with 2 recovery breaks then ambulated using FWW back to room to lay down in bed. Min A to lift and position L LE in bed. Pt able to scoot self up in bed using bed rails, independently. After session, pt lying in bed with call light/phone in reach. All needs met in room. OT Short Term Goals Short Term Goals Shower/bathe self: 3 Upper body dressin Lower body dressin Putting on/taking off footwear: 3 OT Alf Goals Networker Goals Time Frame: Aug 21, 2020 Eating (QC): 6 Oral Hygiene (QC): 6 Toileting Hygiene (QC): 6 Shower/Bathe Self (QC): 6 Upper Body Dressing (QC): 6 Lower Body Dressing (QC): 6 On/Off Footwear (QC): 6 Additional Goals: 1-Demonstrate ADL Tasks, 2-Verbalize Understanding, 3- ImproveStrength/Papa 1=Demonstrate adherence to instructed precautions during ADL tasks. 2=Patient will verbalize/demonstrate understanding of assistive devices/modifications for ADL. 3=Patient will improve strength/tolerance for activity to enable patient to perform ADL's. OT Education/Plan Problem List/Assessment Assessment: Decreased Activ Tolerance, Decreased UE Strength, Impaired Self- Care Skills Discharge Recommendations Plan/Recommendations: Continue POC Treatment Plan/Plan of Care Patient would benefit from OT for education, treatment and training to promote independence in ADL's, mobility, safety and/or upper extremity function for ADL's. Plan of Care: ADL Retraining, Caregiver Training, Concurrent Therapy, Functional Mobility, Group Exercise/Act as Ind, UE Funct Exercise/Act, W/C Management Training Treatment Duration: Aug 21, 2020 Frequency: At least 5 of 7 days/Wk (IRF) Estimated Hrs Per Day: 1.5 hours per day Agreement: Yes Rehab Potential: Fair Time/GCodes Start Time: 07:30 Stop Time: 09:00 Total Time Billed (hr/min): 90 Billed Treatment Time 1 visit-ADL 4 (65 min) FA 2 (25 min) BRICE BATISTA Aug 11, 2020 08:54
[2020-08-11] MEDS: PANTOPRAZOLE 40 MG (PROTONIX) TAB PO SCH (09:34)
--- NOTE | 2020-08-11 11:14 | PM&R Progress Note ---
Subjective HPI/CC On Admission Date Seen by Provider: Aug 11, 2020 Time Seen by Provider: 10:30 Subjective/Events-last exam 08/11/20: Protonix initiated by Dr. Emanuel Overall feeling munch better Checked meds and labs Heplocked IV fluid Overall feels very optimistic about everything now 08/10/20: Pt doing a little better but still having burning in her stomach Dr. Emanuel will be consulted Midline will be placed for iron infusions Bowels moved today Scared to eat 08/09/20: Improved No N/V reported but is picky about eating Changing diet to regular so she can choose Flatus+ Has family issues since she disowned her children and her is dependent on her Bladder scan will be performed 08/08/20: Patient with continued N/V NPO status ordered KUB ordered to r/o obstruction and ileus Iron level will be ordered hgb 9.6 IVF started Review of Systems General: Fatigue, Malaise Musculoskeletal: leg pain Objective Exam Vital Signs Vital Signs Date Time Temp Pulse Resp B/P (MAP) Pulse Ox O2 Delivery O2 Flow Rate FiO2 08/11/20 20:50 96 Room Air 08/11/20 20:30 36.6 79 18 166/77 (106) Capillary Refill : Less Than 3 Seconds General Appearance: No Apparent Distress, WD/WN, Anxious, Chronically ill HEENT: PERRL/EOMI, Normal ENT Inspection, Pharynx Normal Neck: Full Range of Motion, Normal Inspection, Non Tender, Supple, Carotid Bruit Respiratory: Chest Non Tender, Lungs Clear, Normal Breath Sounds, No Accessory Muscle Use, No Respiratory Distress Cardiovascular: Regular Rate, Rhythm, No Edema, No Gallop, No JVD, No Murmur, Normal Peripheral Pulses Gastrointestinal: Normal Bowel Sounds, No Organomegaly, No Pulsatile Mass, Non Tender, Soft Back: Normal Inspection, No CVA Tenderness, No Vertebral Tenderness Extremity: Normal Capillary Refill, Normal Inspection, Normal Range of Motion (except left leg 3/5 strength), Non Tender, No Calf Tenderness, No Pedal Edema Neurologic/Psychiatric: Alert, Oriented x3, No Motor/Sensory Deficits, Normal Mood/Affect Skin: Normal Color, Warm/Dry Lymphatic: No Adenopathy Results/Procedures Lab Patient resulted labs reviewed. FIM Transfers Therapy Code Descriptions/Definitions Functional [place] Measure: 0=Not Assessed/NA 4=Minimal Assistance 1=Total Assistance 5=Supervision or Setup 2=Maximal Assistance 6=Modified [place] 3=Moderate Assistance 7=Complete IndependenceSCALE: Activities may be completed with or without assistive devices. 2-Xumdtvywbv-pcudrdi completes the activity by him/herself with no assistance from a helper. 5-Set-up or Clean-up Assistance-helper sets up or cleans up; patient completes activity. [place] assists only prior to or following the activity. 4-Supervision or Touching Assistance-helper provides verbal cues and/or touching/steadying and/or contact guard assistance as patient completes activity. Assistance may be provided throughout the activity or intermittently. 3-Partial/Moderate Assistance-helper does LESS THAN HALF the effort. [place] lift s, holds or supports trunk or limbs, but provides less than half the effort. 2-Substantial/Maximal Assistance-helper does MORE THAN HALF the effort. [place] lifts or holds trunk or limbs and provides more than half the effort. 2-Tuwcgqlmo-oenhjj does ALL the effort. Patient does none of the effort to complete the activity. Or, the assistance of 2 or more helpers is required for the patient to complete the activity. If activity was not attempted, code reason: 7-Patient Refused. 9-Not Applicable-not attempted and the patient did not perform the activity before the current illness, exacerbation or injury. 10-Not Attempted due to Environmental Limitations-(lack of equipment, weather restraints, etc.). 88-Not Attempted due to Medical Conditions or Safety Concerns. Roll Left to Right (QC): 4 Sit to Lying (QC): 4 Sit to Stand (QC): 4 Chair/Wzn-yk-Ejrte Xfer(QC): 4 Car Transfer (QC): 3 Gait Training Does the Patient Walk?: Yes Walk 10 feet (QC): 4 Walk 50 ft with 2 Turns(QC): 88 Walk 150 ft (QC): 88 Walking 10ft/uneven surface-QC: 88 Gait Persons Needed: 1 Gait Assistive Device: FWW Wheelchair Training Does the Pt Use a Wheelchair?: Yes Distance: 20' Wheel 50 ft with 2 turns (QC): 88 Wheel 150 ft (QC): 88 Type of Wheelchair: Manual Stair Training #of Steps: 1 1 Step (curb) (QC): 3 4 Steps (QC): 88 12 Steps (QC): 88 Balance Picking up an Object (QC): 88 ADL-Treatment Eating (QC): 7 (States that she does not eat breakfast.) Oral Hygiene (QC): 6 Shower/Bathe Self (QC): 5 Upper Body Dressing (QC): 5 Lower Body Dressing (QC): 4 On/Off Footwear (QC): 5 Toileting Hygiene (QC): 4 (CGA while standing) Assessment/Plan Assessment and Plan Assess & Plan/Chief Complaint Assessment: s/p left hip fracture repair HTN Fibromyalgia Former smoker h/o DVT Hypokalemia Plan: BM regimen IRF protocol Monitor closely 08/08/20: NPO IVF Reglan Add iron level KUB 08/09/20: Improved Advance diet IVF until tomorrow Bladder scan 08/10/20: Dr Emanuel consult Replaced potassium 08/11/20: Check labs in am Pain control Improved (1) Closed left hip fracture Status: Acute (2) History of DVT of lower extremity (3) Former smoker (4) Fibromyalgia (5) Neuropathy (6) Fall from slipping on ice Status: Acute (7) HTN (hypertension) Status: Chronic CHICHI KIM DO Aug 11, 2020 11:14
--- NOTE | 2020-08-11 12:28 | Physical Therapy Daily Note ---
PT Daily Note-Current Subjective Pt sitting in recliner upon arrival. Pt agrees to PT but reports not sleeping well due to positioning. RAILROAD BRAKE REPAIRER advises will focus on bed mobility during tx. Pain Location Body Site: Back Pain Description: Ache Comment: Pt reports but doesn't rate. Mental Status Patient Orientation: Person, Place, Situation Transfers SCALE: Activities may be completed with or without assistive devices. 5-Bdkqvatjhx-yqtogsz completes the activity by him/herself with no assistance from a helper. 5-Set-up or Clean-up Assistance-helper sets up or cleans up; patient completes activity. [place] assists only prior to or following the activity. 4-Supervision or Touching Assistance-helper provides verbal cues and/or touching/steadying and/or contact guard assistance as patient completes activity. Assistance may be provided throughout the activity or intermittently. 3-Partial/Moderate Assistance-helper does LESS THAN HALF the effort. [place] lifts, holds or supports trunk or limbs, but provides less than half the effort. 2-Substantial/Maximal Assistance-helper does MORE THAN HALF the effort. [place] lifts or holds trunk or limbs and provides more than half the effort. 2-Xifqxyjfv-dlxkzc does ALL the effort. Patient does none of the effort to complete the activity. Or, the assistance of 2 or more helpers is required for the patient to complete the activity. If activity was not attempted, code reason: 7-Patient Refused. 9-Not Applicable-not attempted and the patient did not perform the activity before the current illness, exacerbation or injury. 10-Not Attempted due to Environmental Limitations-(lack of equipment, weather restraints, etc.). 88-Not Attempted due to Medical Conditions or Safety Concerns. Sit to Lying (QC): 4 Sit to Stand (QC): 5 Weight Bearing Left Lower Extremity: Left Weight Bearing/Tolerated JOVANI precautions Gait Training Does the Patient Walk?: Yes Distance: 20'x2 Walk 10 feet (QC): 5 Gait Persons Needed: 1 Gait Assistive Device: FWW Exercises Supine Ex: Ankle pumps, Quad Set, Glut sets, Heel Slides, Straight leg raise, Hip abd/add Supine Reps: 10 Seated Therapy Exercises: Ankle pumps, Long arc quads, Hip flexion, Kicking activity Seated Reps: 15 Treatments RAILROAD BRAKE REPAIRER and pt review Hip Precautions as well as equipment that could assist. Pt declines needing any equipment as "Sp will be there". RAILROAD BRAKE REPAIRER reviews written HEP for Supine & Seated Ex. Pt transfers from recliner to Supine in bed and is repositioned to comfort using pillows. All needs met, call light in hand. [id number]: Pt transfers from Supine to standing and uses BR. Pt returns to recliner to rest. Seated Ex completed. Pt resting with all needs met, call light in hand. Assessment Current Status: Good Progress Pt needs VC for safety at times. PT Short Term Goals Short Term Goals Time Frame: Aug 14, 2020 Roll Left & Right: 6 Sit to lyin Lying to sitting on side of be: 4 Sit to stand: 4 Chair/xlb-jr-cymha transfer: 4 Walk 10 feet: 4 Walk 50 feet with two turns: 4 PT Care Home Goals Care Home Goals PT Precision Optics Technician Goals Time Frame: Aug 28, 2020 Roll Left & Right (QC): 6 Sit to Lying (QC): 6 Lying-Sitting on Side/Bed(QC): 6 Sit to Stand (QC): 6 Chair/Bcm-zn-Glpcg Xfer(QC): 6 Toilet Transfer (QC): 6 Car Transfer (QC): 6 Does the Patient Walk: Yes Walk 10 feet (QC): 6 Walk 50ft with 2 Turns (QC): 6 Walk 150 ft (QC): 6 Walking 10ft on Uneven Surface: 6 1 Step (curb) (QC): 5 4 Steps (QC): 5 12 Steps (QC): 88 Picking up an Object (QC): 88 Wheel 50 feet with 2 turns (QC: 9 Wheel 150 feet: 9 PT Plan Problem List Problem List: Safety Treatment/Plan Treatment Plan: Continue Plan of Care Treatment Plan: Bed Mobility, Education, Functional Activity Papa, Functional Strength, Group Therapy, Gait, Safety, Therapeutic Exercise, Transfers Treatment Duration: Aug 28, 2020 Frequency: At least 5 of 7 days/Wk (IRF) Estimated Hrs Per Day: 1.5 hours per day Patient and/or Family Agrees t: Yes Safety Risks/Education Patient Education: Transfer Techniques, Correct Positioning, Safety Issues Teaching Recipient: Patient Teaching Methods: Discussion Response to Teaching: Reinforcement Needed Time/GCodes Time In: 1100 Time Out: 1430 Total Billed Treatment Time: 90 Total Billed Treatment 1, FA x2 (30m) & EX x2 (30m) [id number]: 1, FA (15m) & EX (15m) EUSEBIO [place] PTA Aug 11, 2020 12:28
--- NOTE | 2020-08-11 12:34 | Progress Note - Surgery ---
LETTY CANDELARIO MED STUDENT 08/11/20 1234: Subjective Date Seen by a Provider: Aug 11, 2020 Time Seen by a Provider: 08:45 Subjective/Events-last exam Pt awake and lying in bed upon entering room. Pt denies heartburn symptoms today. Pt does note poor appetite and a sour taste when consuming Ensure. Pt notes pain from left hip when pain medication wears off, but is well controlled. Confirms BM. No acute events over night. Review of Systems General: No Chills HEENT: No Head Aches, No Dysphasia Pulmonary: No Dyspnea, No Cough Cardiovascular: No: Chest Pain, Palpitations Gastrointestinal: No: Nausea, Vomiting, Abdominal Pain Genitourinary: No Dysuria, No Retention Musculoskeletal: back pain (discomfort more than pain); No: leg pain Neurological: No: Numbness, Confusion Objective Exam Vital Signs Date Time Temp Pulse Resp B/P (MAP) Pulse Ox O2 Delivery O2 Flow Rate FiO2 08/11/20 09:35 Room Air 08/11/20 06:25 36.6 79 20 164/71 (102) 96 Room Air 08/10/20 20:00 95 Room Air 08/10/20 17:57 36.4 69 18 185/75 (111) 95 Room Air I & O 08/11/20 07:00 Intake Total 1350 ml Output Total 600 ml Balance 750 ml Capillary Refill : Less Than 3 Seconds General Appearance: No Apparent Distress, WD/WN HEENT: PERRL/EOMI, Moist Mucous Membranes Neck: Full Range of Motion, Normal Inspection, Supple Respiratory: Lungs Clear, Normal Breath Sounds, No Accessory Muscle Use, No Respiratory Distress Cardiovascular: Regular Rate, Rhythm, No Edema, Normal Peripheral Pulses Peripheral Pulses: 1+ Dorsalis Pedis (R), 1+ Left Dors-Pedis (L); 2+ Radial Pulses (R), 2+ Radial Pulses (L) Gastrointestinal: non tender, soft; No distended Extremity: Normal Inspection, Non Tender, No Calf Tenderness, No Pedal Edema Neurologic/Psychiatric: Alert, Oriented x3, No Motor/Sensory Deficits, Normal Mood/Affect Skin: Normal Color, Warm/Dry Lymphatic: No Adenopathy (cervical, supraclavicular, axillary) Results Lab Laboratory Tests 08/10/20 15:15: Stool Occult Blood Immunoassay NEGATIVE Assessment/Plan Assessment/Plan Assessment/Plan Anemia R/O GI bleed GERD Left Hip Fx - S/P ORIF Stool hemoccult negative Monitor H/H Consider EGD if hgb continues to trend down Start protonix 40 mg TYLER EMANUEL DO 08/11/20 1533: Subjective Time Seen by a Provider: 09:01 Subjective/Events-last exam Pt seen and examined, her main complaint is of the sour/acidy taste she has in her mouth. "Nothing tastes good and I don't feel like eating". Hemoccult was negative. Review of Systems General: No Chills; Fatigue HEENT: No Head Aches Pulmonary: No Dyspnea, No Cough Cardiovascular: No: Chest Pain, Palpitations Gastrointestinal: No: Nausea, Vomiting, Abdominal Pain Objective Exam General Appearance: No Apparent Distress, WD/WN HEENT: PERRL/EOMI, Moist Mucous Membranes Respiratory: Lungs Clear, Normal Breath Sounds, No Accessory Muscle Use, No Respiratory Distress Cardiovascular: Regular Rate, Rhythm, No Murmur Gastrointestinal: non tender, soft; No distended, No guarding Assessment/Plan Assessment/Plan Assessment/Plan Anemia R/O GI bleed GERD - most likely cause of her "sour taste" Left Hip Fx - S/P ORIF Monitor H/H Consider EGD if hgb continues to trend down Start protonix 40 mg Supervisory-Addendum Brief Verification & Attestation Participated in pt care: history, MDM, physical Personally performed: exam, history, MDM Care discussed with: Medical Student Procedures: n/a Verification and Attestation of Medical Student E/M Service A medical student performed and documented this service. I then reviewed and verified all information documented by the medical student and made modifications to such information, when appropriate. I personally performed a physical exam, medical decision making and then discussed any differences between the notes and made revisions as necessary to create one note. Tyler Emanuel , 08/11/20 , 15:32 LETTY CANDELARIO MED STUDENT Aug 11, 2020 12:34 TYLER EMANUEL DO Aug 11, 2020 15:33
[2020-08-11 18:12] VITALS: BP 158/65
[2020-08-11 20:30] VITALS: BP 166/77
[2020-08-11] MEDS: MELATONIN 3 MG TABLET PO PRN (20:47)
[2020-08-12] MEDS: METOCLOPRAMIDE INJ 10 MG/2 ML (REGLAN) IVP SCH ×2 (00:25→06:22)
[2020-08-12] MEDS: HYDROcodone/APAP 7.5 MG/325 MG (LORTAB, LORCET PLUS) TABLET PO PRN ×7 (00:42→23:10)
[2020-08-12 05:35] VITALS: BP 160/68
[2020-08-12 06:03] LABS: BASOPHILS % (AUTO) 0 % (0-10); EOSINOPHILS # (AUTO) 0.2 10^3/uL (0.0-0.3); EOSINOPHILS % (AUTO) 3 % (0-10); HEMATOCRIT 25 % (35-52); HEMOGLOBIN 8.6 g/dL (11.5-16.0); LYMPHOCYTES # (AUTO) 1.7 10^3/uL (1.0-4.0); LYMPHOCYTES % (AUTO) 23 % (12-44); MEAN CORPUSCULAR HEMOGLOBIN 31 pg (25-34); MEAN CORPUSCULAR HGB CONC 35 g/dL (32-36); MEAN CORPUSCULAR VOLUME 91 fL (80-99); MEAN PLATELET VOLUME 10.3 fL (9.0-12.2); MONOCYTES # (AUTO) 0.8 10^3/uL (0.0-1.0); MONOCYTES % (AUTO) 11 % (0-12); NEUTROPHILS # (AUTO) 4.5 10^3/uL (1.8-7.8); NEUTROPHILS % (AUTO) 61 % (42-75); PLATELET COUNT 333 10^3/uL (130-400); WHITE BLOOD COUNT 7.3 10^3/uL (4.3-11.0)
[2020-08-12 06:21] LABS: ALBUMIN 2.6 GM/DL (3.2-4.5); CHLORIDE 105 MMOL/L (98-107); POTASSIUM 3.3 MMOL/L (3.6-5.0); SODIUM 136 MMOL/L (135-145)
[2020-08-12] MEDS: MULTIVIT W/MINERALS TAB (THERAGRAN M) PO SCH (06:22)
[2020-08-12 06:23] LABS: CALCIUM 7.4 MG/DL (8.5-10.1)
[2020-08-12 06:24] LABS: GLUCOSE 96 MG/DL (70-105)
[2020-08-12 06:25] LABS: CARBON DIOXIDE 21 MMOL/L (21-32)
[2020-08-12 06:26] LABS: BILIRUBIN,TOTAL 0.9 MG/DL (0.1-1.0)
[2020-08-12 06:27] LABS: ALKALINE PHOSPHATASE 55 U/L (40-136); CREATININE SERUM 0.71 MG/DL (0.60-1.30); GFR ESTIMATED > 60
[2020-08-12 06:28] LABS: BUN/CREATININE RATIO 17
[2020-08-12 06:30] LABS: ALANINE AMINOTRANSFERASE 27 U/L (0-55)
[2020-08-12] MEDS: CARVEDILOL 12.5 MG (COREG) TABLET PO SCH ×2 (07:58→20:51)
[2020-08-12] MEDS: PANTOPRAZOLE 40 MG (PROTONIX) TAB PO SCH (07:58)
[2020-08-12] MEDS: ASPIRIN E.C. 81 MG (ECOTRIN) TAB PO SCH (07:58)
[2020-08-12] MEDS: LOSARTAN 100 MG (COZAAR) TABLET PO SCH (07:58)
[2020-08-12] MEDS: ENOXAPARIN 40 MG/0.4 ML (LOVENOX) SYR SC SCH (07:58)
[2020-08-12] MEDS: SENNOSIDES 8.6 MG (SENOKOT) TAB PO SCH ×2 (07:59→20:54)
[2020-08-12] MEDS: polyethylene glycoL POWDER 17 GM (MIRALAX) PACK PO SCH ×3 (07:59→20:53)
[2020-08-12] MEDS: DOCUSATE SODIUM 100 MG (COLACE) CAP PO SCH ×2 (07:59→20:51)
--- NOTE | 2020-08-12 09:25 | Progress Note - Surgery ---
VIRA HENRY,MED STUDENT 08/12/20 0925: Subjective Date Seen by a Provider: Aug 12, 2020 Time Seen by a Provider: 09:05 Subjective/Events-last exam Pt seen and examined this morning. She is resting comfortably in bed, tired from physical therapy. Is trying to eat more but reports decreased appetite. Denies any abdominal pain, burning or reflux. States she has been trying to avoid chocolate and acidic drinks like orange juice. Thinks the protonix which was started yesterday is helping some. Review of Systems General: No Chills; Fatigue; No Appetite HEENT: No Head Aches Pulmonary: No Dyspnea, No Cough Cardiovascular: No: Chest Pain, Palpitations Gastrointestinal: No: Nausea, Vomiting, Abdominal Pain Musculoskeletal: other (L hip pain) Neurological: Weakness (LLE), Numbness (LLE) Objective Exam Vital Signs Date Time Temp Pulse Resp B/P (MAP) Pulse Ox O2 Delivery O2 Flow Rate FiO2 08/12/20 05:35 36.2 64 18 160/68 (98) 96 Room Air 08/11/20 20:50 96 Room Air 08/11/20 20:30 36.6 79 18 166/77 (106) 96 Room Air 08/11/20 18:12 36.5 81 18 158/65 (96) 96 Room Air 08/11/20 09:35 Room Air I & O 08/12/20 07:00 Intake Total 1620 ml Balance 1620 ml Capillary Refill : Less Than 3 Seconds General Appearance: No Apparent Distress, WD/WN HEENT: PERRL/EOMI, Moist Mucous Membranes Respiratory: Lungs Clear, No Accessory Muscle Use, No Respiratory Distress Cardiovascular: Regular Rate, Rhythm, No Murmur Peripheral Pulses: 1+ Dorsalis Pedis (R), 1+ Left Dors-Pedis (L); 2+ Radial Pulses (R), 2+ Radial Pulses (L) Gastrointestinal: non tender, soft; No distended, No guarding Extremity: Non Tender, No Calf Tenderness Neurologic/Psychiatric: Alert, No Motor/Sensory Deficits, Normal Mood/Affect Skin: Normal Color, Warm/Dry Results Lab Laboratory Tests 08/12/20 05:55: White Blood Count 7.3, Red Blood Count 2.74L, Hemoglobin 8.6L, Hematocrit 25L, Mean Corpuscular Volume 91, Mean Corpuscular Hemoglobin 31, Mean Corpuscular Hemoglobin Concent 35, Red Cell Distribution Width 13.1, Platelet Count 333, Patience n Platelet Volume 10.3, Immature Granulocyte % (Auto) 1, Neutrophils (%) (Auto) 61, Lymphocytes (%) (Auto) 23, Monocytes (%) (Auto) 11, Eosinophils (%) (Auto) 3, Basophils (%) (Auto) 0, Neutrophils # (Auto) 4.5, Lymphocytes # (Auto) 1.7, Monocytes # (Auto) 0.8, Eosinophils # (Auto) 0.2, Basophils # (Auto) 0.0, Immature Granulocyte # (Auto) 0.1, Sodium Level 136, Potassium Level 3.3L, Chloride Level 105, Carbon Dioxide Level 21, Anion Gap 10, Blood Urea Nitrogen 12, Creatinine 0.71, Estimat Glomerular Filtration Rate > 60, BUN/Creatinine Ratio 17, Glucose Level 96, Calcium Level 7.4L, Corrected Calcium 8.5, Total Bilirubin 0.9, Aspartate Amino Transf (AST/SGOT) 38H, Alanine Aminotransferase (ALT/SGPT) 27, Alkaline Phosphatase 55, Total Protein 5.0L, Albumin 2.6L Assessment/Plan Assessment/Plan Assessment/Plan Anemia R/O GI bleed- Hgb stable, 8.6 this AM, 8.7 on 08/10 GERD - most likely cause of her "sour taste", improved this morning Left Hip Fx - S/P ORIF Monitor H/H Consider EGD if hgb continues to trend down Start protonix 40 mg Encourage increased oral intake TYLER EMANUEL DO 08/12/20 1132: Subjective Time Seen by a Provider: 11:02 Subjective/Events-last exam Pt seen and examined, states she thinks she is a little better. She is trying to eat more, but isn't hungry. She thinks the protonix may have helped the sour taste a little. Review of Systems General: No Chills; Fatigue Pulmonary: No Dyspnea, No Cough Cardiovascular: No: Chest Pain, Palpitations Gastrointestinal: No: Nausea, Vomiting, Abdominal Pain Objective Exam General Appearance: No Apparent Distress, WD/WN HEENT: PERRL/EOMI Respiratory: Lungs Clear, Normal Breath Sounds, No Accessory Muscle Use, No Respiratory Distress Cardiovascular: Regular Rate, Rhythm, No Murmur Gastrointestinal: non tender, soft, no organomegaly; No distended, No guarding Assessment/Plan Assessment/Plan Assessment/Plan Anemia R/O GI bleed- Hgb stable, 8.6 this AM, 8.7 on 08/10 GERD - most likely cause of her "sour taste", improved this morning Left Hip Fx - S/P ORIF Monitor H/H Consider EGD if hgb continues to trend down Start protonix 40 mg Encourage increased oral intake Supervisory-Addendum Brief Verification & Attestation Participated in pt care: history, MDM, physical Personally performed: exam, history, MDM Care discussed with: Medical Student Procedures: n/a Verification and Attestation of Medical Student E/M Service A medical student performed and documented this service. I then reviewed and verified all information documented by the medical student and made modification s to such information, when appropriate. I personally performed a physical exam, medical decision making and then discussed any differences between the notes and made revisions as necessary to create one note. Tyler Emanuel , 08/12/20 , 11:37 VIRA HENRY,MED STUDENT Aug 12, 2020 09:25 TYLER EMANUEL DO Aug 12, 2020 11:32
--- NOTE | 2020-08-12 10:25 | Occupational Ther Daily Note ---
OT Current Status-Daily Note Subjective Pt alert, lying in bed. Pt agrees to therapy. Pt c/o pain at end of treatment, reported to nrsg. 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 SBA for functional transfers. Pt able to hike pants in standing using FWW and complete toilet hygiene sitting on toilet. Supervision for showering using bench, LH sponge, grabbars and hand held shower. After set up, pt is able to don/doff shirt and using AE for lower body dressing independently. Pt completes oral care in standing at sink. Therapy Code Descriptions/Definitions Functional [place] Measure: 0=Not Assessed/NA 4=Minimal Assistance 1=Total Assistance 5=Supervision or Setup 2=Maximal Assistance 6=Modified [place] 3=Moderate Assistance 7=Complete IndependenceSCALE: Activities may be completed with or without assistive devices. 5-Pcxxdfmewb-jumhvkc completes the activity by him/herself with no assistance from a helper. 5-Set-up or Clean-up Assistance-helper sets up or cleans up; patient completes activity. [place] assists only prior to or following the activity. 4-Supervision or Touching Assistance-helper provides verbal cues and/or gal gigi/steadying and/or contact guard assistance as patient completes activity. Assistance may be provided throughout the activity or intermittently. 3-Partial/Moderate Assistance-helper does LESS THAN HALF the effort. [place] lifts, holds or supports trunk or limbs, but provides less than half the effort. 2-Substantial/Maximal Assistance-helper does MORE THAN HALF the effort. [place] lifts or holds trunk or limbs and provides more than half the effort. 9-Ssbmbpsnr-sltyoc does ALL the effort. Patient does none of the effort to complete the activity. Or, the assistance of 2 or more helpers is required for the patient to complete the activity. If activity was not attempted, code reason: 7-Patient Refused. 9-Not Applicable-not attempted and the patient did not perform the activity before the current illness, exacerbation or injury. 10-Not Attempted due to Environmental Limitations-(lack of equipment, weather restraints, etc.). 88-Not Attempted due to Medical Conditions or Safety Concerns. Eating (QC): 6 Oral Hygiene (QC): 6 Shower/Bathe Self (QC): 4 Upper Body Dressing (QC): 5 Lower Body Dressing (QC): 5 On/Off Footwear: 5 Toileting Hygiene (QC): 4 Toilet Transfer (QC): 4 Other Treatment Pt ambulated to/from therapy gym with two recovery breaks using FWW. Pt completed arm bike for 8 min at 15 barbour resistance to increase strength and activity tolerance for daily functional tasks. After therapy, pt lying in bed with call light/phone in reach. All needs met in room. OT Short Term Goals Short Term Goals Shower/bathe self: 3 Upper body dressin Lower body dressin Putting on/taking off footwear: 3 OT Usp Goals Credit Risk Analyst Goals Time Frame: Aug 21, 2020 Eating (QC): 6 Oral Hygiene (QC): 6 Toileting Hygiene (QC): 6 Shower/Bathe Self (QC): 6 Upper Body Dressing (QC): 6 Lower Body Dressing (QC): 6 On/Off Footwear (QC): 6 Additional Goals: 1-Demonstrate ADL Tasks, 2-Verbalize Understanding, 3- ImproveStrength/Papa 1=Demonstrate adherence to instructed precautions during ADL tasks. 2=Patient will verbalize/demonstrate understanding of assistive devices/modifications for ADL. 3=Patient will improve strength/tolerance for activity to enable patient to perform ADL's. OT Education/Plan Problem List/Assessment Assessment: Decreased Activ Tolerance, Decreased UE Strength, Impaired Self- Care Skills Discharge Recommendations Plan/Recommendations: Continue POC Treatment Plan/Plan of Care Patient would benefit from OT for education, treatment and training to promote independence in ADL's, mobility, safety and/or upper extremity function for ADL's. Plan of Care: ADL Retraining, Caregiver Training, Concurrent Therapy, Functiona l Mobility, Group Exercise/Act as Ind, UE Funct Exercise/Act, W/C Management Training Treatment Duration: Aug 21, 2020 Frequency: At least 5 of 7 days/Wk (IRF) Estimated Hrs Per Day: 1.5 hours per day Agreement: Yes Rehab Potential: Fair Time/GCodes Start Time: 07:15 Stop Time: 08:45 Total Time Billed (hr/min): 90 Billed Treatment Time 1 visit-ADL 4 (60 min) FA 1 (22 min) EX 1 (8 min) BRICE BATISTA Aug 12, 2020 10:25
--- NOTE | 2020-08-12 10:55 | Progress Note ---
Standard Progress Note Progress Notes/Assess & Plan Date Seen by a Provider: Aug 12, 2020 Time Seen by a Provider: 10:45 Progress/Assessment & Plan no complaints ambulating with PT L hip dressing in place. echymosis throughout no calf tenderness. Neg Ritesh's s/p L hip bipolar continue PT/OT MARC GARCIA MD Aug 12, 2020 10:55
--- NOTE | 2020-08-12 11:58 | PM&R Progress Note ---
Subjective HPI/CC On Admission Date Seen by Provider: Aug 12, 2020 Time Seen by Provider: 11:15 Subjective/Events-last exam 08/12/20: Pt doing pretty well but still not eating well Proton pump inhibitor initiate by Dr. Emanuel seems to be helping Will DC Reglan IV Labs look good 08/11/20: Protonix initiated by Dr. Emanuel Overall feeling munch better Checked meds and labs Heplocked IV fluid Overall feels very optimistic about everything now 08/10/20: Pt doing a little better but still having burning in her stomach Dr. Emanuel will be consulted Midline will be placed for iron infusions Bowels moved today Scared to eat 08/09/20: Improved No N/V reported but is picky about eating Changing diet to regular so she can choose Flatus+ Has family issues since she disowned her children and her is dependent on her Bladder scan will be performed 08/08/20: Patient with continued N/V NPO status ordered KUB ordered to r/o obstruction and ileus Iron level will be ordered hgb 9.6 IVF started Review of Systems General: Fatigue Musculoskeletal: leg pain Objective Exam Vital Signs Vital Signs Date Time Temp Pulse Resp B/P (MAP) Pulse Ox O2 Delivery O2 Flow Rate FiO2 08/13/20 05:31 36.5 78 18 165/72 (103) 94 Room Air Capillary Refill : Less Than 3 Seconds General Appearance: No Apparent Distress, WD/WN, Chronically ill HEENT: PERRL/EOMI, Normal ENT Inspection, Pharynx Normal Neck: Full Range of Motion, Normal Inspection, Non Tender, Supple Respiratory: Chest Non Tender, Lungs Clear, Normal Breath Sounds, No Accessory Muscle Use, No Respiratory Distress Cardiovascular: Regular Rate, Rhythm, No Edema, No Gallop, No JVD, No Murmur Gastrointestinal: Normal Bowel Sounds, No Organomegaly, No Pulsatile Mass, Non Tender, Soft Back: Normal Inspection, No CVA Tenderness, No Vertebral Tenderness Extremity: Non Tender, No Calf Tenderness Neurologic/Psychiatric: Alert, Oriented x3, No Motor/Sensory Deficits, Normal Mood/Affect Skin: Normal Color, Warm/Dry Results/Procedures Lab Laboratory Tests 08/12/20 05:55 Patient resulted labs reviewed. FIM Transfers Therapy Code Descriptions/Definitions Functional [place] Measure: 0=Not Assessed/NA 4=Minimal Assistance 1=Total Assistance 5=Supervision or Setup 2=Maximal Assistance 6=Modified [place] 3=Moderate Assistance 7=Complete IndependenceSCALE: Activities may be completed with or without assistive devices. 1-Auvltxywtf-iqrvdag completes the activity by him/herself with no assistance from a helper. 5-Set-up or Clean-up Assistance-helper sets up or cleans up; patient completes activity. [place] assists only prior to or following the activity. 4-Supervision or Touching Assistance-helper provides verbal cues and/or touching/steadying and/or contact guard assistance as patient completes activity. Assistance may be provided throughout the activity or intermittently. 3-Partial/Moderate Assistance-helper does LESS THAN HALF the effort. [place] lifts, holds or supports trunk or limbs, but provides less than half the effort. 2-Substantial/Maximal Assistance-helper does MORE THAN HALF the effort. [place] lifts or holds trunk or limbs and provides more than half the effort. 3-Jdhctnqex-ylwsrc does ALL the effort. Patient does none of the effort to complete the activity. Or, the assistance of 2 or more helpers is required for the patient to complete the activity. If activity was not attempted, code reason: 7-Patient Refused. 9-Not Applicable-not attempted and the patient did not perform the activity before the current illness, exacerbation or injury. 10-Not Attempted due to Environmental Limitations-(lack of equipment, weather restraints, etc.). 88-Not Attempted due to Medical Conditions or Safety Concerns. Roll Left to Right (QC): 4 Sit to Lying (QC): 4 Sit to Stand (QC): 5 Chair/Uco-ox-Tjzcf Xfer(QC): 4 Car Transfer (QC): 3 Gait Training Does the Patient Walk?: Yes Distance: 20'x2 Walk 10 feet (QC): 5 Walk 50 ft with 2 Turns(QC): 88 Walk 150 ft (QC): 88 Walking 10ft/uneven surface-QC: 88 Gait Persons Needed: 1 Gait Assistive Device: FWW Wheelchair Training Does the Pt Use a Wheelchair?: Yes Distance: 20' Wheel 50 ft with 2 turns (QC): 88 Wheel 150 ft (QC): 88 Type of Wheelchair: Manual Stair Training #of Steps: 1 1 Step (curb) (QC): 3 4 Steps (QC): 88 12 Steps (QC): 88 Balance Picking up an Object (QC): 88 ADL-Treatment Eating (QC): 6 Oral Hygiene (QC): 6 Shower/Bathe Self (QC): 4 Upper Body Dressing (QC): 5 Lower Body Dressing (QC): 5 On/Off Footwear (QC): 5 Toileting Hygiene (QC): 4 Toilet Transfer (QC): 4 Assessment/Plan Assessment and Plan Assess & Plan/Chief Complaint Assessment: s/p left hip fracture repair HTN Fibromyalgia Former smoker h/o DVT Hypokalemia Plan: BM regimen IRF protocol Monitor closely 08/08/20: NPO IVF Reglan Add iron level KUB 08/09/20: Improved Advance diet IVF until tomorrow Bladder scan 08/10/20: Dr Emanuel consult Replaced potassium 08/11/20: Check labs in am Pain control Improved 08/12/20: Improved status Regaining impressive function (1) Closed left hip fracture Status: Acute (2) History of DVT of lower extremity (3) Former smoker (4) Fibromyalgia (5) Neuropathy (6) Fall from slipping on ice Status: Acute (7) HTN (hypertension) Status: Chronic CHICHI KIM DO Aug 12, 2020 11:58
--- NOTE | 2020-08-12 12:15 | Physical Therapy Daily Note ---
PT Daily Note-Current Subjective Pt laying Supine in bed asleep upon arrival. Pt agrees to PT. Pain Numeric Pain Scale: 5-Moderate Pain Location: Incisional, Left Location Body Site: Hip Pain Description: Ache Mental Status Patient Orientation: Person, Place, Situation Transfers SCALE: Activities may be completed with or without assistive devices. 2-Xuujmtvrto-avwcilw completes the activity by him/herself with no assistance from a helper. 5-Set-up or Clean-up Assistance-helper sets up or cleans up; patient completes activity. [place] assists only prior to or following the activity. 4-Supervision or Touching Assistance-helper provides verbal cues and/or touch ing/steadying and/or contact guard assistance as patient completes activity. Assistance may be provided throughout the activity or intermittently. 3-Partial/Moderate Assistance-helper does LESS THAN HALF the effort. [place] lifts, holds or supports trunk or limbs, but provides less than half the effort. 2-Substantial/Maximal Assistance-helper does MORE THAN HALF the effort. [place] lifts or holds trunk or limbs and provides more than half the effort. 0-Ssbvwkbex-hmeyut does ALL the effort. Patient does none of the effort to complete the activity. Or, the assistance of 2 or more helpers is required for the patient to complete the activity. If activity was not attempted, code reason: 7-Patient Refused. 9-Not Applicable-not attempted and the patient did not perform the activity before the current illness, exacerbation or injury. 10-Not Attempted due to Environmental Limitations-(lack of equipment, weather restraints, etc.). 88-Not Attempted due to Medical Conditions or Safety Concerns. Lying to Sitting/Side of Bed(Q: 5 Sit to Stand (QC): 5 Weight Bearing Left Lower Extremity: Left Weight Bearing/Tolerated OJVANI precautions Gait Training Does the Patient Walk?: Yes Distance: 100' Walk 10 feet (QC): 5 Walk 50 ft with 2 Turns(QC): 5 Walk 150 ft (QC): 5 Gait Persons Needed: 1 Gait Assistive Device: FWW Wheelchair Training Does the Pt Use a Wheelchair?: No Stair Training Stair Training: Handrails/: 2 handrails #of Steps: 4 1 Step (curb) (QC): 5 4 Steps (QC): 5 12 Steps (QC): 7 Stairs: Pattern: Step to Treatments Pt again discusses AE for home and states none is needed. Pt also asks when will DC (states both ready to leave and nervous about hip dislocation possibility). TF to EOB then standing and amb. to BR. Amb in hallway with a couple of RB. Pt completes 4 steps then takes RB. Pt amb in hallway and rests in bed at end of tx. Nurse present and all needs met. Assessment Current Status: Fair Progress Pt needs encouragement to participate and VC to stay on task. PT Short Term Goals Short Term Goals Time Frame: Aug 14, 2020 Roll Left & Right: 6 Sit to lyin Lying to sitting on side of be: 4 Sit to stand: 4 Chair/flt-tc-qlegg transfer: 4 Walk 10 feet: 4 Walk 50 feet with two turns: 4 PT Alf Goals Shoe Trimmer Goals PT Alf Goals Time Frame: Aug 28, 2020 Roll Left & Right (QC): 6 Sit to Lying (QC): 6 Lying-Sitting on Side/Bed(QC): 6 Sit to Stand (QC): 6 Chair/Vxl-ap-Iabdo Xfer(QC): 6 Toilet Transfer (QC): 6 Car Transfer (QC): 6 Does the Patient Walk: Yes Walk 10 feet (QC): 6 Walk 50ft with 2 Turns (QC): 6 Walk 150 ft (QC): 6 Walking 10ft on Uneven Surface: 6 1 Step (curb) (QC): 5 4 Steps (QC): 5 12 Steps (QC): 88 Picking up an Object (QC): 88 Wheel 50 feet with 2 turns (QC: 9 Wheel 150 feet: 9 PT Plan Problem List Problem List: Activity Tolerance, Safety Treatment/Plan Treatment Plan: Continue Plan of Care Treatment Plan: Bed Mobility, Education, Functional Activity Papa, Functional Strength, Group Therapy, Gait, Safety, Therapeutic Exercise, Transfers Treatment Duration: Aug 28, 2020 Frequency: At least 5 of 7 days/Wk (IRF) Estimated Hrs Per Day: 1.5 hours per day Patient and/or Family Agrees t: Yes Safety Risks/Education Patient Education: Gait Training, Transfer Techniques, Reviewed Precautions, Correct Positioning, Safety Issues Teaching Recipient: Patient Teaching Methods: Discussion Response to Teaching: Verbalize Understanding Time/GCodes Time In: 1000 Time Out: 1100 Total Billed Treatment Time: 60 Total Billed Treatment 1, FA x2 (30m), GT (15m) & EX (15m) EUSEBIO [place] HEADRIG SAWYER Aug 12, 2020 12:15
--- NOTE | 2020-08-12 16:27 | Physical Therapy Daily Note ---
PT Daily Note-Current Subjective Pt laying Supine in bed upon arrival. Pt reluctantly agrees to PT. Pain Numeric Pain Scale: 4 Location: Incisional, Left Location Body Site: Hip Pain Description: Ache Mental Status Patient Orientation: Person, Place, Situation Transfers SCALE: Activities may be completed with or without assistive devices. 9-Usxjpwuzty-wbbwiba completes the activity by him/herself with no assistance from a helper. 5-Set-up or Clean-up Assistance-helper sets up or cleans up; patient completes activity. [place] assists only prior to or following the activity. 4-Supervision or Touching Assistance-helper provides verbal cues and/or touching/steadying and/or contact guard assistance as patient completes activity. Assistance may be provided throughout the activity or intermittently. 3-Partial/Moderate Assistance-helper does LESS THAN HALF the effort. [place] lifts, holds or supports trunk or limbs, but provides less than half the effort. 2-Substantial/Maximal Assistance-helper does MORE THAN HALF the effort. [place] lifts or holds trunk or limbs and provides more than half the effort. 5-Eupvzywgn-dsnshy does ALL the effort. Patient does none of the effort to complete the activity. Or, the assistance of 2 or more helpers is required for the patient to complete the activity. If activity was not attempted, code reason: 7-Patient Refused. 9-Not Applicable-not attempted and the patient did not perform the activity before the current illness, exacerbation or injury. 10-Not Attempted due to Environmental Limitations-(lack of equipment, weather restraints, etc.). 88-Not Attempted due to Medical Conditions or Safety Concerns. Weight Bearing Left Lower Extremity: Left Weight Bearing/Tolerated JOVANI precautions Exercises Supine Ex: Ankle pumps, Quad Set, Glut sets, Heel Slides, Straight leg raise, Hip abd/add Supine Reps: 15 Treatments STONE DRILLER reviews Hip Precautions and provides documentation to aid nervousness for home about Hip Dislocation. Pt completes Supine Ex in bed with RB as needed. Pt resting with all needs met at end of tx, call light in hand. Assessment Current Status: Fair Progress Pt needs encouragement to participate in PT. PT Short Term Goals Short Term Goals Time Frame: Aug 14, 2020 Roll Left & Right: 6 Sit to lyin Lying to sitting on side of be: 4 Sit to stand: 4 Chair/ubg-lq-kyyki transfer: 4 Walk 10 feet: 4 Walk 50 feet with two turns: 4 PT Care Home Goals Care Home Goals PT Data Modeler Goals Time Frame: Aug 28, 2020 Roll Left & Right (QC): 6 Sit to Lying (QC): 6 Lying-Sitting on Side/Bed(QC): 6 Sit to Stand (QC): 6 Chair/Bbp-ph-Znzom Xfer(QC): 6 Toilet Transfer (QC): 6 Car Transfer (QC): 6 Does the Patient Walk: Yes Walk 10 feet (QC): 6 Walk 50ft with 2 Turns (QC): 6 Walk 150 ft (QC): 6 Walking 10ft on Uneven Surface: 6 1 Step (curb) (QC): 5 4 Steps (QC): 5 12 Steps (QC): 88 Picking up an Object (QC): 88 Wheel 50 feet with 2 turns (QC: 9 Wheel 150 feet: 9 PT Plan Problem List Problem List: Activity Tolerance, Functional Strength Treatment/Plan Treatment Plan: Continue Plan of Care Treatment Plan: Bed Mobility, Education, Functional Activity Papa, Functional Strength, Group Therapy, Gait, Safety, Therapeutic Exercise, Transfers Treatment Duration: Aug 28, 2020 Frequency: At least 5 of 7 days/Wk (IRF) Estimated Hrs Per Day: 1.5 hours per day Patient and/or Family Agrees t: Yes Time/GCodes Time In: 1415 Time Out: 1445 Total Billed Treatment Time: 30 Total Billed Treatment 1, FA (15m) & EX (15m) EUSEBIO [place] STONE DRILLER Aug 12, 2020 16:27
[2020-08-12 17:07] VITALS: BP 187/81
[2020-08-12] MEDS: MELATONIN 3 MG TABLET PO PRN (20:53)
[2020-08-13] MEDS: HYDROcodone/APAP 7.5 MG/325 MG (LORTAB, LORCET PLUS) TABLET PO PRN ×5 (05:17→22:44)
[2020-08-13 05:31] VITALS: BP 165/72
[2020-08-13] MEDS: MULTIVIT W/MINERALS TAB (THERAGRAN M) PO SCH (06:40)
[2020-08-13] MEDS: ONDANSETRON 4 MG/2 ML (SDV) Z0FRAN IVP PRN (07:08)
--- NOTE | 2020-08-13 07:29 | Progress Note - Surgery ---
VIRA HENRY,MED STUDENT 08/13/20 0729: Subjective Date Seen by a Provider: Aug 13, 2020 Time Seen by a Provider: 06:41 Subjective/Events-last exam Pt seen and examined this morning. States she slept very well last night and is up in a chair when I talked to her. States she ate bread with peanut butter yesterday and seems to have improved a little today. Wants to try some pineapple. Denies abd pain, heartburn/reflux sxs, nausea or vomiting. Review of Systems General: No Chills, No Fatigue HEENT: No Head Aches Pulmonary: No Dyspnea Cardiovascular: No: Chest Pain, Edema Gastrointestinal: No: Nausea, Vomiting, Abdominal Pain Musculoskeletal: leg pain (left) Neurological: Weakness (LLE) Objective Exam Vital Signs Date Time Temp Pulse Resp B/P (MAP) Pulse Ox O2 Delivery O2 Flow Rate FiO2 08/13/20 05:31 36.5 78 18 165/72 (103) 94 Room Air 08/12/20 20:53 Room Air 08/12/20 17:07 36.8 70 18 187/81 (116) 96 Room Air 08/12/20 09:00 Room Air I & O 08/13/20 07:00 Intake Total 1350 ml Output Total 1195 ml Balance 155 ml Capillary Refill : Less Than 3 Seconds General Appearance: No Apparent Distress, WD/WN HEENT: PERRL/EOMI Respiratory: No Accessory Muscle Use, No Respiratory Distress Cardiovascular: Regular Rate, Rhythm, No Murmur Peripheral Pulses: 1+ Dorsalis Pedis (R), 1+ Left Dors-Pedis (L); 2+ Radial Pulses (R), 2+ Radial Pulses (L) Gastrointestinal: non tender, soft; No distended, No guarding Extremity: Non Tender, Swelling (BLE edema, mild) Neurologic/Psychiatric: Alert, Oriented x3, No Motor/Sensory Deficits, Normal Mood/Affect Skin: Normal Color, Warm/Dry Assessment/Plan Assessment/Plan Assessment/Plan GERD, improving Anemia, concern for GI bleed- Hgb stable Left Hip Fx - S/P ORIF Continue protonix Encourage oral intake, especially high protein foods. Monitor H/H Consider EGD if hgb drops TYLER EMANUEL DO 08/14/20 9455: Subjective Time Seen by a Provider: 16:11 Subjective/Events-last exam Pt seen and examined, states she is eating a little better and sour taste is gone. Review of Systems General: No Chills, No Fatigue HEENT: No Head Aches Pulmonary: No Dyspnea Cardiovascular: No: Chest Pain, Edema Gastrointestinal: No: Nausea, Vomiting, Abdominal Pain Objective Exam General Appearance: No Apparent Distress, WD/WN HEENT: PERRL/EOMI Respiratory: No Accessory Muscle Use, No Respiratory Distress Cardiovascular: Regular Rate, Rhythm, No Murmur Gastrointestinal: non tender, soft; No distended, No guarding Assessment/Plan Assessment/Plan Assessment/Plan GERD, improving Anemia, concern for GI bleed- Hgb stable Left Hip Fx - S/P ORIF Continue protonix Encourage oral intake, especially high protein foods. Monitor H/H Consider EGD if hgb drops Supervisory-Addendum Brief Verification & Attestation Participated in pt care: history, MDM, physical Personally performed: exam, history, MDM Care discussed with: Medical Student Procedures: n/a Verification and Attestation of Medical Student E/M Service A medical student performed and documented this service. I then reviewed and verified all information documented by the medical student and made modifications to such information, when appropriate. I personally performed a physical exam, medical decision making and then discussed any differences between the notes and made revisions as necessary to create one note. Tyler Emanuel , 08/14/20 , 16:45 VIRA HENRY,MED STUDENT Aug 13, 2020 07:29 TYLER EMANUEL DO Aug 14, 2020 16:45
--- NOTE | 2020-08-13 07:58 | Progress Note ---
Standard Progress Note Progress Notes/Assess & Plan Date Seen by a Provider: Aug 13, 2020 Time Seen by a Provider: 07:56 Progress/Assessment & Plan no complaints ambulating with PT L hip dressing in place. echymosis throughout no calf tenderness. Neg Ritesh's s/p L hip bipolar continue PT/OT Final Diagnosis no complaints Vital Signs Date Time Temp Pulse Resp B/P (MAP) Pulse Ox O2 Delivery O2 Flow Rate FiO2 08/13/20 05:31 36.5 78 18 165/72 (103) 94 Room Air 08/12/20 20:53 Room Air 08/12/20 17:07 36.8 70 18 187/81 (116) 96 Room Air 08/12/20 09:00 Room Air I & O 08/13/20 07:00 Intake Total 1350 ml Output Total 1195 ml Balance 155 ml L hip incision without erythema. scant serous DC no calf tenderness s/p l hip bipolar continue PT/OT MARC GARCIA MD Aug 13, 2020 07:57
[2020-08-13] MEDS: ASPIRIN E.C. 81 MG (ECOTRIN) TAB PO SCH (08:42)
[2020-08-13] MEDS: CARVEDILOL 12.5 MG (COREG) TABLET PO SCH ×2 (08:42→20:21)
[2020-08-13] MEDS: IRON SUCROSE 200 MG/10 ML (VENOFER) VIAL IV SCH (08:43)
[2020-08-13] MEDS: LOSARTAN 100 MG (COZAAR) TABLET PO SCH (08:43)
[2020-08-13] MEDS: DOCUSATE SODIUM 100 MG (COLACE) CAP PO SCH ×2 (08:43→20:20)
[2020-08-13] MEDS: SENNOSIDES 8.6 MG (SENOKOT) TAB PO SCH ×2 (08:43→20:20)
[2020-08-13] MEDS: PANTOPRAZOLE 40 MG (PROTONIX) TAB PO SCH (08:43)
[2020-08-13] MEDS: ENOXAPARIN 40 MG/0.4 ML (LOVENOX) SYR SC SCH (08:44)
[2020-08-13] MEDS: polyethylene glycoL POWDER 17 GM (MIRALAX) PACK PO SCH ×2 (08:45→20:20)
[2020-08-13 08:48] VITALS: BP 179/75
--- NOTE | 2020-08-13 08:54 | Occupational Ther Daily Note ---
OT Current Status-Daily Note Subjective Pt alert, lying in bed. Pt c/o n/v prior to session, nrsg knows. Pt agrees to therapy. Mental Status/Objective Patient Orientation: Person, Place, Time, Situation Attachments: IV ADL-Treatment Pt agrees to shower. Pt takes increased time to complete tasks today due to n/v. Independent using bed rail and HOB raised to get in/out of bed. Pt ambulated to bathroom using FWW with SBA. SBA to transfer into shower. Supervision to complete shower sitting on shower bench using hand held shower, LH sponge and grabbars. Pt continues to decline regular clothing since she does not have any of her own. Pt able to use AE for lower body dressing to don underwear and socks by self. Pt is able to thread B UE into hospital gown sleeve and machine puller head when neck is tied. Standing at sink, pt able to complete oral care independently. Therapy Code Descriptions/Definitions Functional [place] Measure: 0=Not Assessed/NA 4=Minimal Assistance 1=Total Assistance 5=Supervision or Setup 2=Maximal Assistance 6=Modified [place] 3=Moderate Assistance 7=Complete IndependenceSCALE: Activities may be completed with or without assistive devices. 0-Iiqpndfzml-msnvbve completes the activity by him/herself with no assistance from a helper. 5-Set-up or Clean-up Assistance-helper sets up or cleans up; patient completes activity. [place] assists only prior to or following the activity. 4-Supervision or Touching Assistance-helper provides verbal cues and/or touching/steadying and/or contact guard assistance as patient completes act ivity. Assistance may be provided throughout the activity or intermittently. 3-Partial/Moderate Assistance-helper does LESS THAN HALF the effort. [place] lifts, holds or supports trunk or limbs, but provides less than half the effort. 2-Substantial/Maximal Assistance-helper does MORE THAN HALF the effort. [place] lifts or holds trunk or limbs and provides more than half the effort. 5-Ciagvwxuq-cyuiig does ALL the effort. Patient does none of the effort to complete the activity. Or, the assistance of 2 or more helpers is required for the patient to complete the activity. If activity was not attempted, code reason: 7-Patient Refused. 9-Not Applicable-not attempted and the patient did not perform the activity before the current illness, exacerbation or injury. 10-Not Attempted due to Environmental Limitations-(lack of equipment, weather restraints, etc.). 88-Not Attempted due to Medical Conditions or Safety Concerns. Oral Hygiene (QC): 6 Shower/Bathe Self (QC): 4 Upper Body Dressing (QC): 5 Lower Body Dressing (QC): 5 On/Off Footwear: 5 Other Treatment Pt completed 5 B UE medium resistive theraband exercises with skilled i nstruction for proper technique, 1 set 10 reps. After session, pt lying in bed with call light/phone in reach. All needs met in room. OT Short Term Goals Short Term Goals Shower/bathe self: 3 Upper body dressin Lower body dressin Putting on/taking off footwear: 3 OT Oxyacetylene Torch Operator Goals Long-Term Goals Time Frame: Aug 21, 2020 Eating (QC): 6 Oral Hygiene (QC): 6 Toileting Hygiene (QC): 6 Shower/Bathe Self (QC): 6 Upper Body Dressing (QC): 6 Lower Body Dressing (QC): 6 On/Off Footwear (QC): 6 Additional Goals: 1-Demonstrate ADL Tasks, 2-Verbalize Understanding, 3- ImproveStrength/Papa 1=Demonstrate adherence to instructed precautions during ADL tasks. 2=Patient will verbalize/demonstrate understanding of assistive devices/modifications for ADL. 3=Patient will improve strength/tolerance for activity to enable patient to perform ADL's. OT Education/Plan Problem List/Assessment Assessment: Decreased Activ Tolerance, Decreased UE Strength, Impaired Self- Care Skills Discharge Recommendations Plan/Recommendations: Continue POC Treatment Plan/Plan of Care Patient would benefit from OT for education, treatment and training to promote independence in ADL's, mobility, safety and/or upper extremity function for ADL's. Plan of Care: ADL Retraining, Caregiver Training, Concurrent Therapy, Functional Mobility, Group Exercise/Act as Ind, UE Funct Exercise/Act, W/C Management Training Treatment Duration: Aug 21, 2020 Frequency: At least 5 of 7 days/Wk (IRF) Estimated Hrs Per Day: 1.5 hours per day Agreement: Yes Rehab Potential: Fair Time/GCodes Start Time: 07:30 Stop Time: 09:00 Total Time Billed (hr/min): 90 Billed Treatment Time 1 visit-ADL 4 (60 min) FA 1 (15 min) EX 1 (15 min) BRICE BATISTA Aug 13, 2020 08:54
--- NOTE | 2020-08-13 11:40 | PM&R Progress Note ---
Subjective HPI/CC On Admission Date Seen by Provider: Aug 13, 2020 Time Seen by Provider: 12:00 Subjective/Events-last exam 08/13/20: Much improved Appetite improved Elevated BP noted so will monitor trend Venofer 3rd dose today Appreciate Dr Emanuel 08/12/20: Pt doing pretty well but still not eating well Proton pump inhibitor initiate by Dr. Emanuel seems to be helping Will DC Reglan IV Labs look good 08/11/20: Protonix initiated by Dr. Emanuel Overall feeling munch better Checked meds and labs Heplocked IV fluid Overall feels very optimistic about everything now 08/10/20: Pt doing a little better but still having burning in her stomach Dr. Emanuel will be consulted Midline will be placed for iron infusions Bowels moved today Scared to eat 08/09/20: Improved No N/V reported but is picky about eating Changing diet to regular so she can choose Flatus+ Has family issues since she disowned her children and her is dependent on her Bladder scan will be performed 08/08/20: Patient with continued N/V NPO status ordered KUB ordered to r/o obstruction and ileus Iron level will be ordered hgb 9.6 IVF started Review of Systems General: Fatigue Gastrointestinal: Nausea Musculoskeletal: leg pain Objective Exam Vital Signs Vital Signs Date Time Temp Pulse Resp B/P (MAP) Pulse Ox O2 Delivery O2 Flow Rate FiO2 08/13/20 21:13 Room Air 08/13/20 16:26 36.5 63 16 150/67 (94) 95 Capillary Refill : Less Than 3 Seconds General Appearance: No Apparent Distress, WD/WN HEENT: PERRL/EOMI Respiratory: No Accessory Muscle Use, No Respiratory Distress Cardiovascular: Regular Rate, Rhythm, No Murmur Gastrointestinal: Normal Bowel Sounds, No Organomegaly, No Pulsatile Mass, Non Tender, Soft Back: Normal Inspection, No CVA Tenderness, No Vertebral Tenderness Extremity: Non Tender, Swelling (BLE edema, mild) Neurologic/Psychiatric: Alert, Oriented x3, No Motor/Sensory Deficits, Normal Mood/Affect Skin: Normal Color, Warm/Dry Results/Procedures Lab Patient resulted labs reviewed. FIM Transfers Therapy Code Descriptions/Definitions Functional [place] Measure: 0=Not Assessed/NA 4=Minimal Assistance 1=Total Assistance 5=Supervision or Setup 2=Maximal Assistance 6=Modified [place] 3=Moderate Assistance 7=Complete IndependenceSCALE: Activities may be completed with or without assistive devices. 3-Vqdulfewkh-kfbebmg completes the activity by him/herself with no assistance from a helper. 5-Set-up or Clean-up Assistance-helper sets up or cleans up; patient completes activity. [place] assists only prior to or following the activity. 4-Supervision or Touching Assistance-helper provides verbal cues and/or touching/steadying and/or contact guard assistance as patient completes activity. Assistance may be provided throughout the activity or intermittently. 3-Partial/Moderate Assistance-helper does LESS THAN HALF the effort. [place] lifts, holds or supports trunk or limbs, but provides less than half the effort. 2-Substantial/Maximal Assistance-helper does MORE THAN HALF the effort. [place] lifts or holds trunk or limbs and provides more than half the effort. 1-Ymqjooybi-fekhic does ALL the effort. Patient does none of the effort to complete the activity. Or, the assistance of 2 or more helpers is required for the patient to complete the activity. If activity was not attempted, code reason: 7-Patient Refused. 9-Not Applicable-not attempted and the patient did not perform the activity before the current illness, exacerbation or injury. 10-Not Attempted due to Environmental Limitations-(lack of equipment, weather restraints, etc.). 88-Not Attempted due to Medical Conditions or Safety Concerns. Roll Left to Right (QC): 4 Sit to Lying (QC): 4 Sit to Stand (QC): 5 Chair/Vcx-xj-Ovsiy Xfer(QC): 4 Car Transfer (QC): 3 Gait Training Does the Patient Walk?: Yes Distance: 100' Walk 10 feet (QC): 5 Walk 50 ft with 2 Turns(QC): 5 Walk 150 ft (QC): 5 Walking 10ft/uneven surface-QC: 88 Gait Persons Needed: 1 Gait Assistive Device: FWW Wheelchair Training Does the Pt Use a Wheelchair?: No Distance: 20' Wheel 50 ft with 2 turns (QC): 88 Wheel 150 ft (QC): 88 Type of Wheelchair: Manual Stair Training Stair Training: Handrails/: 2 handrails #of Steps: 4 1 Step (curb) (QC): 5 4 Steps (QC): 5 12 Steps (QC): 7 Stairs: Pattern: Step to Balance Picking up an Object (QC): 88 ADL-Treatment Eating (QC): 6 Oral Hygiene (QC): 6 Shower/Bathe Self (QC): 4 Upper Body Dressing (QC): 5 Lower Body Dressing (QC): 5 On/Off Footwear (QC): 5 Toileting Hygiene (QC): 4 Toilet Transfer (QC): 4 Assessment/Plan Assessment and Plan Assess & Plan/Chief Complaint Assessment: s/p left hip fracture repair HTN Fibromyalgia Former smoker h/o DVT Hypokalemia Plan: BM regimen IRF protocol Monitor closely 08/08/20: NPO IVF Reglan Add iron level KUB 08/09/20: Improved Advance diet IVF until tomorrow Bladder scan 08/10/20: Dr Emanuel consult Replaced potassium 08/11/20: Check labs in am Pain control Improved 08/12/20: Improved status Regaining impressive function 08/13/20: PPI Pain control Venofer (1) Closed left hip fracture Status: Acute (2) History of DVT of lower extremity (3) Former smoker (4) Fibromyalgia (5) Neuropathy (6) Fall from slipping on ice Status: Acute (7) HTN (hypertension) Status: Chronic CHICHI KIM DO Aug 13, 2020 11:40
[2020-08-13] MEDS: LACTULOSE SYRUP 10GM/15ML (ENULOSE) 30ML UDC PO PRN (12:05)
--- NOTE | 2020-08-13 12:29 | Physical Therapy Daily Note ---
PT Daily Note-Current Subjective Pt laying Supine in bed upon arrival. Pt agrees to PT but needs VC to stay on task instead of talking. Pain Numeric Pain Scale: 7 Location: Left Location Body Site: Knee Pain Description: Ache Comment: Achy/Pull with moveemnt from Hip to knee Mental Status Patient Orientation: Person, Place, Situation Transfers SCALE: Activities may be completed with or without assistive devices. 9-Pqpauxrnbz-rnffbsn completes the activity by him/herself with no assistance from a helper. 5-Set-up or Clean-up Assistance-helper sets up or cleans up; patient completes activity. [place] assists only prior to or following the activity. 4-Supervision or Touching Assistance-helper provides verbal cues and/or touching/steadying and/or contact guard assistance as patient completes activity. Assistance may be provided throughout the activity or intermittently. 3-Partial/Moderate Assistance-helper does LESS THAN HALF the effort. [place] lifts, holds or supports trunk or limbs, but provides less than half the effort. 2-Substantial/Maximal Assistance-helper does MORE THAN HALF the effort. [place] lifts or holds trunk or limbs and provides more than half the effort. 4-Iimojkgra-jxbdrd does ALL the effort. Patient does none of the effort to complete the activity. Or, the assistance of 2 or more helpers is required for the patient to complete the activity. If activity was not attempted, code reason: 7-Patient Refused. 9-Not Applicable-not attempted and the patient did not perform the activity before the current illness, exacerbation or injury. 10-Not Attempted due to Environmental Limitations-(lack of equipment, weather restraints, etc.). 88-Not Attempted due to Medical Conditions or Safety Concerns. Sit to Lying (QC): 4 Lying to Sitting/Side of Bed(Q: 4 Sit to Stand (QC): 5 Toilet Transfer (QC): 5 Weight Bearing Left Lower Extremity: Left Weight Bearing/Tolerated JOVANI precautions Gait Training Does the Patient Walk?: Yes Distance: 100', 50' Walk 10 feet (QC): 5 Walk 50 ft with 2 Turns(QC): 5 Gait Persons Needed: 1 Gait Assistive Device: FWW Treatments Pt transfers to standing and amb. to BR. Pt amb. in hallway with a couple of RB. Pt returns discussing DC of next week and how to progress. MOCCASIN SEWER gives VC to stay on task. TF back to bed to rest. All needs met, call light in hand. Assessment Current Status: Fair Progress Pt needs VC to stay on task as pt likes to visit. PT Short Term Goals Short Term Goals Time Frame: Aug 14, 2020 Roll Left & Right: 6 Sit to lyin Lying to sitting on side of be: 4 Sit to stand: 4 Chair/zmp-bc-jyswe transfer: 4 Walk 10 feet: 4 Walk 50 feet with two turns: 4 PT Assisted Goals Child Care Goals PT Child Care Goals Time Frame: Aug 28, 2020 Roll Left & Right (QC): 6 Sit to Lying (QC): 6 Lying-Sitting on Side/Bed(QC): 6 Sit to Stand (QC): 6 Chair/Lms-vh-Hwtuj Xfer(QC): 6 Toilet Transfer (QC): 6 Car Transfer (QC): 6 Does the Patient Walk: Yes Walk 10 feet (QC): 6 Walk 50ft with 2 Turns (QC): 6 Walk 150 ft (QC): 6 Walking 10ft on Uneven Surface: 6 1 Step (curb) (QC): 5 4 Steps (QC): 5 12 Steps (QC): 88 Picking up an Object (QC): 88 Wheel 50 feet with 2 turns (QC: 9 Wheel 150 feet: 9 PT Plan Problem List Problem List: Activity Tolerance, Functional Strength, Gait Treatment/Plan Treatment Plan: Continue Plan of Care Treatment Plan: Bed Mobility, Education, Functional Activity Papa, Functional Strength, Group Therapy, Gait, Safety, Therapeutic Exercise, Transfers Treatment Duration: Aug 28, 2020 Frequency: At least 5 of 7 days/Wk (IRF) Estimated Hrs Per Day: 1.5 hours per day Patient and/or Family Agrees t: Yes Safety Risks/Education Patient Education: Gait Training, Reviewed Precautions, Correct Positioning, Safety Issues Teaching Recipient: Patient Teaching Methods: Discussion Response to Teaching: Verbalize Understanding Time/GCodes Time In: 1015 Time Out: 115 Total Billed Treatment Time: 60 Total Billed Treatment 1, FA x2 (30m) & GT x2 (30m) EUSEBIO [place] MOCCASIN SEWER Aug 13, 2020 12:29
--- NOTE | 2020-08-13 15:10 | Physical Therapy Daily Note ---
PT Daily Note-Current Subjective Agrees to PT. Reports she feels like she has been treated like a "asif" here. Reports she hopes to return home next week. Transfers SCALE: Activities may be completed with or without assistive devices. 8-Zwxagzdfqa-leoyipz completes the activity by him/herself with no assistance f rom a helper. 5-Set-up or Clean-up Assistance-helper sets up or cleans up; patient completes activity. [place] assists only prior to or following the activity. 4-Supervision or Touching Assistance-helper provides verbal cues and/or touching/steadying and/or contact guard assistance as patient completes activity. Assistance may be provided throughout the activity or intermittently. 3-Partial/Moderate Assistance-helper does LESS THAN HALF the effort. [place] lifts, holds or supports trunk or limbs, but provides less than half the effort. 2-Substantial/Maximal Assistance-helper does MORE THAN HALF the effort. [place] lifts or holds trunk or limbs and provides more than half the effort. 8-Bmtngvvht-quslgw does ALL the effort. Patient does none of the effort to complete the activity. Or, the assistance of 2 or more helpers is required for the patient to complete the activity. If activity was not attempted, code reason: 7-Patient Refused. 9-Not Applicable-not attempted and the patient did not perform the activity before the current illness, exacerbation or injury. 10-Not Attempted due to Environmental Limitations-(lack of equipment, weather restraints, etc.). 88-Not Attempted due to Medical Conditions or Safety Concerns. Sit to Lying (QC): 3 (assist with left LE to lift into bed and placement in bed. ) Lying to Sitting/Side of Bed(Q: 4 (SBA for safety. ) Sit to Stand (QC): 4 (SBA with correct sequencing and technique. ) Chair/Htp-ib-Umhci Xfer(QC): 4 Toilet Transfer (QC): 4 Weight Bearing Left Lower Extremity: Left Weight Bearing/Tolerated JOVANI precautions Gait Training Walk 50 ft with 2 Turns(QC): 4 Walk 150 ft (QC): 4 (fWW with step through pattern; slightly antalgic. ) Exercises Supine Ex: Ankle pumps, Glut sets, Short Arc Quads, Hip abd/add Supine Reps: 12 (Functional LE strength progression.) Treatments Functional gait, ther ex and transfer/bed mobility and toileting performed this visit Assessment Current Status: Good Progress Pt able to safely perform transfer with SBA. Progressing well. PT Short Term Goals Short Term Goals Time Frame: Aug 14, 2020 Roll Left & Right: 6 Sit to lyin Lying to sitting on side of be: 4 Sit to stand: 4 (met) Chair/frd-zo-mmtjg transfer: 4 (met) Walk 10 feet: 4 (met) Walk 50 feet with two turns: 4 (met) PT Nursing Home Goals Silverlight Developer Goals PT Silverlight Developer Goals Time Frame: Aug 28, 2020 Roll Left & Right (QC): 6 Sit to Lying (QC): 6 Lying-Sitting on Side/Bed(QC): 6 Sit to Stand (QC): 6 Chair/Nih-ge-Dpqrm Xfer(QC): 6 Toilet Transfer (QC): 6 Car Transfer (QC): 6 Does the Patient Walk: Yes Walk 10 feet (QC): 6 Walk 50ft with 2 Turns (QC): 6 Walk 150 ft (QC): 6 Walking 10ft on Uneven Surface: 6 1 Step (curb) (QC): 5 4 Steps (QC): 5 12 Steps (QC): 88 Picking up an Object (QC): 88 Wheel 50 feet with 2 turns (QC: 9 Wheel 150 feet: 9 PT Plan Problem List Problem List: Activity Tolerance, Functional Strength, Safety, Balance, Gait, Transfer Treatment/Plan Treatment Plan: Continue Plan of Care Treatment Plan: Bed Mobility, Education, Functional Activity Papa, Functional Strength, Group Therapy, Gait, Safety, Therapeutic Exercise, Transfers Treatment Duration: Aug 28, 2020 Frequency: At least 5 of 7 days/Wk (IRF) Estimated Hrs Per Day: 1.5 hours per day Patient and/or Family Agrees t: Yes Safety Risks/Education Patient Education: Safety Issues Teaching Recipient: Patient Teaching Methods: Discussion Response to Teaching: Reinforcement Needed Discharge Recommendations Therapy Discharge Recommendati: Post Acute PT (HHC PT) Time/GCodes Time In: 1430 Time Out: 1500 Total Billed Treatment Time: 30 Total Billed Treatment visit FA 30 BRICE PERRY PT Aug 13, 2020 15:10
[2020-08-13 16:26] VITALS: BP 150/67
[2020-08-13] MEDS: CATHETER FLUSH 10 ML SYR IV SCH (20:21)
[2020-08-14] MEDS: HYDROcodone/APAP 7.5 MG/325 MG (LORTAB, LORCET PLUS) TABLET PO PRN ×4 (04:33→21:00)
[2020-08-14] MEDS: MULTIVIT W/MINERALS TAB (THERAGRAN M) PO SCH (05:40)
[2020-08-14] MEDS: CATHETER FLUSH 10 ML SYR IV SCH ×3 (05:40→20:49)
[2020-08-14 05:57] VITALS: BP 163/54
[2020-08-14] MEDS: DOCUSATE SODIUM 100 MG (COLACE) CAP PO SCH ×2 (07:55→20:49)
[2020-08-14] MEDS: SENNOSIDES 8.6 MG (SENOKOT) TAB PO SCH ×2 (07:55→20:49)
[2020-08-14] MEDS: ENOXAPARIN 40 MG/0.4 ML (LOVENOX) SYR SC SCH (07:55)
[2020-08-14] MEDS: LOSARTAN 100 MG (COZAAR) TABLET PO SCH (07:56)
[2020-08-14] MEDS: polyethylene glycoL POWDER 17 GM (MIRALAX) PACK PO SCH ×2 (07:56→21:10)
[2020-08-14] MEDS: ASPIRIN E.C. 81 MG (ECOTRIN) TAB PO SCH (07:56)
[2020-08-14] MEDS: CARVEDILOL 12.5 MG (COREG) TABLET PO SCH ×2 (07:56→20:49)
[2020-08-14] MEDS: PANTOPRAZOLE 40 MG (PROTONIX) TAB PO SCH (07:56)
--- NOTE | 2020-08-14 08:46 | Occupational Ther Daily Note ---
OT Current Status-Daily Note Subjective Pt alert, lying in bed. Pt c/o nausea at beginning and end of treatment. Pt agrees to therapy. Mental Status/Objective Patient Orientation: Person, Place, Time, Situation Attachments: IV ADL-Treatment Pt agrees to shower. Pt takes increased time due to nausea and recovery breaks. Supine to EOB, independent with HOB slightly elevated. Ambulated into bathroom using FWW, SBA. Pt transfers into shower with SBA using FWW, grabbars and bench. Pt completes shower sitting on bench, leaning side to side to wash buttocks, using LH sponge to reach lower legs/feet. Pt continues to decline regular clothing until family brings some this weekend. After set up, pt able to don upper body clothing (hospital gown). Using AE for lower body clothing pt dons underwear and socks. Pt continues to decline AE for home use. Pt then stands at sink to complete oral care independently. Ambulates back to bed and opens yogurt container and eats with regular spoon. Pt c/o nausea and yogurt is helping diminish nausea. After therapy, pt lying in bed with call light/phone in reach. All needs met in room. Therapy Code Descriptions/Definitions Functional [place] Measure: 0=Not Assessed/NA 4=Minimal Assistance 1=Total Assistance 5=Supervision or Setup 2=Maximal Assistance 6=Modified [place] 3=Moderate Assistance 7=Complete IndependenceSCALE: Activities may be completed with or without assistive devices. 5-Fzagifxinw-czvrbwx completes the activity by him/herself with no assistance from a helper. 5-Set-up or Clean-up Assistance-helper sets up or cleans up; patient completes activity. [place] assists only prior to or following the activity. 4-Supervision or Touching Assistance-helper provides verbal cues and/or touching/steadying and/or contact guard assistance as patient completes activity. Assistance may be provided throughout the activity or intermittently. 3-Partial/Moderate Assistance-helper does LESS THAN HALF the effort. [place] lifts, holds or supports trunk or limbs, but provides less than half the effort. 2-Substantial/Maximal Assistance-helper does MORE THAN HALF the effort. [place] lifts or holds trunk or limbs and provides more than half the effort. 7-Zcxzaytfj-cceheb does ALL the effort. Patient does none of the effort to complete the activity. Or, the assistance of 2 or more helpers is required for the patient to complete the activity. If activity was not attempted, code reason: 7-Patient Refused. 9-Not Applicable-not attempted and the patient did not perform the activity before the current illness, exacerbation or injury. 10-Not Attempted due to Environmental Limitations-(lack of equipment, weather restraints, etc.). 88-Not Attempted due to Medical Conditions or Safety Concerns. Eating (QC): 6 Oral Hygiene (QC): 6 Shower/Bathe Self (QC): 4 Upper Body Dressing (QC): 5 Lower Body Dressing (QC): 5 On/Off Footwear: 5 Toileting Hygiene (QC): 4 Toilet Transfer (QC): 4 OT Short Term Goals Short Term Goals Shower/bathe self: 3 Upper body dressin Lower body dressin Putting on/taking off footwear: 3 OT Naturopathic Oncology Provider Goals Group Home Goals Time Frame: Aug 21, 2020 Eating (QC): 6 Oral Hygiene (QC): 6 Toileting Hygiene (QC): 6 Shower/Bathe Self (QC): 6 Upper Body Dressing (QC): 6 Lower Body Dressing (QC): 6 On/Off Footwear (QC): 6 Additional Goals: 1-Demonstrate ADL Tasks, 2-Verbalize Understanding, 3- ImproveStrength/[place] 1=Demonstrate adherence to instructed precautions during ADL tasks. 2=Patient will verbalize/demonstrate understanding of assistive devices/modifications for ADL. 3=Patient will improve strength/tolerance for activity to enable patient to perform ADL's. OT Education/Plan Problem List/Assessment Assessment: Decreased Activ Tolerance, Impaired Self-Care Skills Discharge Recommendations Plan/Recommendations: Continue POC Treatment Plan/Plan of Care Patient would benefit from OT for education, treatment and training to promote independence in ADL's, mobility, safety and/or upper extremity function for ADL's. Plan of Care: ADL Retraining, Caregiver Training, Concurrent Therapy, Functional Mobility, Group Exercise/Act as Ind, UE Funct Exercise/Act, W/C Management Training Treatment Duration: Aug 21, 2020 Frequency: At least 5 of 7 days/Wk (IRF) Estimated Hrs Per Day: 1.5 hours per day Agreement: Yes Rehab Potential: Fair Time/GCodes Start Time: 07:15 Stop Time: 08:45 Total Time Billed (hr/min): 90 Billed Treatment Time 1 visit-ADL 6 (90 min) BRICE BATISTA Aug 14, 2020 08:45
[2020-08-14] MEDS ORDERED: amLODIPine 5 MG (NORVASC) TAB PO ONE (09:45)
--- NOTE | 2020-08-14 10:09 | PM&R Progress Note ---
Subjective HPI/CC On Admission Date Seen by Provider: Aug 14, 2020 Time Seen by Provider: 09:45 Subjective/Events-last exam 08/14/20: Much improved status Elevated BP prompting adding Norvasc 5mg daily now Venofer maintained BM+ 08/13/20: Much improved Appetite improved Elevated BP noted so will monitor trend Venofer 3rd dose today Appreciate Dr Emanuel 08/12/20: Pt doing pretty well but still not eating well Proton pump inhibitor initiate by Dr. Emanuel seems to be helping Will DC Reglan IV Labs look good 08/11/20: Protonix initiated by Dr. Emanuel Overall feeling munch better Checked meds and labs Heplocked IV fluid Overall feels very optimistic about everything now 08/10/20: Pt doing a little better but still having burning in her stomach Dr. Emanuel will be consulted Midline will be placed for iron infusions Bowels moved today Scared to eat 08/09/20: Improved No N/V reported but is picky about eating Changing diet to regular so she can choose Flatus+ Has family issues since she disowned her children and her is dependent on her Bladder scan will be performed 08/08/20: Patient with continued N/V NPO status ordered KUB ordered to r/o obstruction and ileus Iron level will be ordered hgb 9.6 IVF started Review of Systems General: Fatigue Gastrointestinal: Nausea Musculoskeletal: leg pain Neurological: Weakness Objective Exam Vital Signs Vital Signs Date Time Temp Pulse Resp B/P (MAP) Pulse Ox O2 Delivery O2 Flow Rate FiO2 08/15/20 05:28 36.2 76 18 174/75 (108) 96 Room Air Capillary Refill : Less Than 3 Seconds General Appearance: No Apparent Distress, WD/WN HEENT: PERRL/EOMI Respiratory: No Accessory Muscle Use, No Respiratory Distress Cardiovascular: Regular Rate, Rhythm, No Murmur Gastrointestinal: Normal Bowel Sounds, No Organomegaly, No Pulsatile Mass, Non Tender, Soft Back: Normal Inspection, No CVA Tenderness, No Vertebral Tenderness Extremity: Non Tender, Swelling (BLE edema, mild) Neurologic/Psychiatric: Alert, Oriented x3, No Motor/Sensory Deficits, Normal Mood/Affect Skin: Normal Color, Warm/Dry Results/Procedures Lab Patient resulted labs reviewed. FIM Transfers Therapy Code Descriptions/Definitions Functional [place] Measure: 0=Not Assessed/NA 4=Minimal Assistance 1=Total Assistance 5=Supervision or Setup 2=Maximal Assistance 6=Modified [place] 3=Moderate Assistance 7=Complete IndependenceSCALE: Activities may be completed with or without assistive devices. 9-Woetksstqd-efpslbv completes the activity by him/herself with no assistance from a helper. 5-Set-up or Clean-up Assistance-helper sets up or cleans up; patient completes activity. [place] assists only prior to or following the activity. 4-Supervision or Touching Assistance-helper provides verbal cues and/or touching/steadying and/or contact guard assistance as patient completes activity. Assistance may be provided throughout the activity or intermittently. 3-Partial/Moderate Assistance-helper does LESS THAN HALF the effort. [place] lifts, holds or supports trunk or limbs, but provides less than half the effort. 2-Substantial/Maximal Assistance-helper does MORE THAN HALF the effort. [place] lifts or holds trunk or limbs and provides more than half the effort. 8-Zbzghpiyc-ujswuu does ALL the effort. Patient does none of the effort to complete the activity. Or, the assistance of 2 or more helpers is required for the patient to complete the activity. If activity was not attempted, code reason: 7-Patient Refused. 9-Not Applicable-not attempted and the patient did not perform the activity before the current illness, exacerbation or injury. 10-Not Attempted due to Environmental Limitations-(lack of equipment, weather restraints, etc.). 88-Not Attempted due to Medical Conditions or Safety Concerns. Roll Left to Right (QC): 4 Sit to Lying (QC): 3 (assist with left LE to lift into bed and placement in bed. ) Sit to Stand (QC): 4 (SBA with correct sequencing and technique. ) Chair/Stx-ol-Bwxwt Xfer(QC): 4 Car Transfer (QC): 3 Gait Training Does the Patient Walk?: Yes Distance: 100', 50' Walk 10 feet (QC): 5 Walk 50 ft with 2 Turns(QC): 4 Walk 150 ft (QC): 4 (fWW with step through pattern; slightly antalgic. ) Walking 10ft/uneven surface-QC: 88 Gait Persons Needed: 1 Gait Assistive Device: FWW Wheelchair Training Does the Pt Use a Wheelchair?: No Distance: 20' Wheel 50 ft with 2 turns (QC): 88 Wheel 150 ft (QC): 88 Type of Wheelchair: Manual Stair Training Stair Training: Handrails/: 2 handrails #of Steps: 4 1 Step (curb) (QC): 5 4 Steps (QC): 5 12 Steps (QC): 7 Stairs: Pattern: Step to Balance Picking up an Object (QC): 88 ADL-Treatment Eating (QC): 6 Oral Hygiene (QC): 6 Shower/Bathe Self (QC): 4 Upper Body Dressing (QC): 5 Lower Body Dressing (QC): 5 On/Off Footwear (QC): 5 Toileting Hygiene (QC): 4 Toilet Transfer (QC): 4 Assessment/Plan Assessment and Plan Assess & Plan/Chief Complaint Assessment: s/p left hip fracture repair HTN Fibromyalgia Former smoker h/o DVT Hypokalemia Plan: BM regimen IRF protocol Monitor closely 08/08/20: NPO IVF Reglan Add iron level KUB 08/09/20: Improved Advance diet IVF until tomorrow Bladder scan 08/10/20: Dr Emanuel consult Replaced potassium 08/11/20: Check labs in am Pain control Improved 08/12/20: Improved status Regaining impressive function 08/13/20: PPI Pain control Venofer 08/14/20: Monitor nausea PPI Pain control Improved status (1) Closed left hip fracture Status: Acute (2) History of DVT of lower extremity (3) Former smoker (4) Fibromyalgia (5) Neuropathy (6) Fall from slipping on ice Status: Acute (7) HTN (hypertension) Status: Chronic CHICHI KIM DO Aug 14, 2020 10:09
--- NOTE | 2020-08-14 10:59 | Physical Therapy Daily Note ---
PT Daily Note-Current Subjective Pt. agrees to bed ex and TRFs if done slowly and gently as she has nausea and has had some vomiting. Pt. declined gait several times Pain Location: No Pain Reported Comment: c/o N&V ruggiero and clothe at her side Mental Status Patient Orientation: Person, Place, Time, Situation pt. was confused with regards to following along with sequence and purpose of Rx and exercises Transfers SCALE: Activities may be completed with or without assistive devices. 8-Vxnrbakxmb-qvmxqem completes the activity by him/herself with no assistance from a helper. 5-Set-up or Clean-up Assistance-helper sets up or cleans up; patient completes activity. [place] assists only prior to or following the activity. 4-Supervision or Touching Assistance-helper provides verbal cues and/or touching/steadying and/or contact guard assistance as patient completes activity. Assistance may be provided throughout the activity or intermittently. 3-Partial/Moderate Assistance-helper does LESS THAN HALF the effort. [place] lifts, holds or supports trunk or limbs, but provides less than half the effort. 2-Substantial/Maximal Assistance-helper does MORE THAN HALF the effort. [place] lifts or holds trunk or limbs and provides more than half the effort. 4-Tyxkuwprh-sqxtjp does ALL the effort. Patient does none of the effort to complete the activity. Or, the assistance of 2 or more helpers is required for the patient to complete the activity. If activity was not attempted, code reason: 7-Patient Refused. 9-Not Applicable-not attempted and the patient did not perform the activity before the current illness, exacerbation or injury. 10-Not Attempted due to Environmental Limitations-(lack of equipment, weather restraints, etc.). 88-Not Attempted due to Medical Conditions or Safety Concerns. Roll Left & Right (QC): 5 Sit to Lying (QC): 4 Lying to Sitting/Side of Bed(Q: 5 Sit to Stand (QC): 5 Weight Bearing Left Lower Extremity: Left Weight Bearing/Tolerated JOVANI precautions Gait Training Gait Assistive Device: FWW pt. ambulated only a few steps sideways along side of the bed and refused gait Exercises Supine Ex: Ankle pumps, Quad Set, Rolling, Glut sets, Heel Slides, Short Arc Quads, Scooting, Straight leg raise (assisted left), Hip abd/add Supine Reps: 12 (x2) Seated Therapy Exercises: Sit to stand, Long arc quads Seated Reps: 8 Treatments pt. declined gait stating she was nauseous Assessment Current Status: Good Progress PT Short Term Goals Short Term Goals Time Frame: Aug 14, 2020 Roll Left & Right: 6 Sit to lyin Lying to sitting on side of be: 4 Sit to stand: 4 (met) Chair/ooi-gj-qkojv transfer: 4 (met) Walk 10 feet: 4 (met) Walk 50 feet with two turns: 4 (met) PT Fdc Goals Candle Wrapping Machine Operator Goals PT Candle Wrapping Machine Operator Goals Time Frame: Aug 28, 2020 Roll Left & Right (QC): 6 Sit to Lying (QC): 6 Lying-Sitting on Side/Bed(QC): 6 Sit to Stand (QC): 6 Chair/Jyl-uh-Iajln Xfer(QC): 6 Toilet Transfer (QC): 6 Car Transfer (QC): 6 Does the Patient Walk: Yes Walk 10 feet (QC): 6 Walk 50ft with 2 Turns (QC): 6 Walk 150 ft (QC): 6 Walking 10ft on Uneven Surface: 6 1 Step (curb) (QC): 5 4 Steps (QC): 5 12 Steps (QC): 88 Picking up an Object (QC): 88 Wheel 50 feet with 2 turns (QC: 9 Wheel 150 feet: 9 PT Plan Treatment/Plan Treatment Plan: Continue Plan of Care Treatment Plan: Bed Mobility, Education, Functional Activity Papa, Functional Strength, Group Therapy, Gait, Safety, Therapeutic Exercise, Transfers Treatment Duration: Aug 28, 2020 Frequency: At least 5 of 7 days/Wk (IRF) Estimated Hrs Per Day: 1.5 hours per day Patient and/or Family Agrees t: Yes Safety Risks/Education Patient Education: Transfer Techniques, Reviewed Precautions, Correct Positioning, Disease Process, Safety Issues Teaching Recipient: Patient Teaching Methods: Demonstration, Discussion Response to Teaching: Verbalize Understanding, Return Demonstration, Reinforcement Needed pt. recites 2/3 precautions Time/GCodes Time In: 1000 Time Out: 1100 Total Billed Treatment Time: 60 Total Billed Treatment 1,EX35m,FA25m JANES GU SPECIALIZED DEVELOPER Aug 14, 2020 10:59
--- NOTE | 2020-08-14 14:31 | Physical Therapy Daily Note ---
PT Daily Note-Current Subjective Pt. agrees to Rx, feeling much better and wants to walk. /o pain in lateral left knee radiating down from hip she rates 5/10 in pain Pain Numeric Pain Scale: 5-Moderate Pain Location: Left Location Body Site: Knee Pain Description: Ache Mental Status Patient Orientation: Normal For Age Transfers SCALE: Activities may be completed with or without assistive devices. 9-Uhtgnzqwjf-bfldqyo completes the activity by him/herself with no assistance from a helper. 5-Set-up or Clean-up Assistance-helper sets up or cleans up; patient completes activity. [place] assists only prior to or following the activity. 4-Supervision or Touching Assistance-helper provides verbal cues and/or touching/steadying and/or contact guard assistance as patient completes activity. Assistance may be provided throughout the activity or intermittently. 3-Partial/Moderate Assistance-helper does LESS THAN HALF the effort. [place] lifts, holds or supports trunk or limbs, but provides less than half the effort. 2-Substantial/Maximal Assistance-helper does MORE THAN HALF the effort. [place] lifts or holds trunk or limbs and provides more than half the effort. 0-Weyskgoql-dxmhpk does ALL the effort. Patient does none of the effort to complete the activity. Or, the assistance of 2 or more helpers is required for the patient to complete the activity. If activity was not attempted, code reason: 7-Patient Refused. 9-Not Applicable-not attempted and the patient did not perform the activity before the current illness, exacerbation or injury. 10-Not Attempted due to Environmental Limitations-(lack of equipment, weather restraints, etc.). 88-Not Attempted due to Medical Conditions or Safety Concerns. into bed min, OOB CGA, sit to stands all SBA, on off toilet SBA to CGA Weight Bearing Left Lower Extremity: Left Weight Bearing/Tolerated JOVANI precautions Gait Training Does the Patient Walk?: Yes Walk 10 feet (QC): 4 Walk 50 ft with 2 Turns(QC): 4 Walk 150 ft (QC): 4 Gait Persons Needed: 1 Gait Assistive Device: FWW Exercises Seated Therapy Exercises: Ankle pumps, Sit to stand, Long arc quads Seated Reps: 12 Assessment Current Status: Good Progress PT Short Term Goals Short Term Goals Time Frame: Aug 14, 2020 Roll Left & Right: 6 Sit to lyin Lying to sitting on side of be: 4 Sit to stand: 4 (met) Chair/zkd-zm-eannf transfer: 4 (met) Walk 10 feet: 4 (met) Walk 50 feet with two turns: 4 (met) PT Senior Living Goals Senior Living Goals PT Senior Living Goals Time Frame: Aug 28, 2020 Roll Left & Right (QC): 6 Sit to Lying (QC): 6 Lying-Sitting on Side/Bed(QC): 6 Sit to Stand (QC): 6 Chair/Rsm-wi-Otwia Xfer(QC): 6 Toilet Transfer (QC): 6 Car Transfer (QC): 6 Does the Patient Walk: Yes Walk 10 feet (QC): 6 Walk 50ft with 2 Turns (QC): 6 Walk 150 ft (QC): 6 Walking 10ft on Uneven Surface: 6 1 Step (curb) (QC): 5 4 Steps (QC): 5 12 Steps (QC): 88 Picking up an Object (QC): 88 Wheel 50 feet with 2 turns (QC: 9 Wheel 150 feet: 9 PT Plan Treatment/Plan Treatment Plan: Continue Plan of Care Treatment Plan: Bed Mobility, Education, Functional Activity Papa, Functional Strength, Group Therapy, Gait, Safety, Therapeutic Exercise, Transfers Treatment Duration: Aug 28, 2020 Frequency: At least 5 of 7 days/Wk (IRF) Estimated Hrs Per Day: 1.5 hours per day Patient and/or Family Agrees t: Yes Safety Risks/Education Patient Education: Gait Training, Transfer Techniques, Correct Positioning, Disease Process, Safety Issues Teaching Recipient: Patient Teaching Methods: Demonstration, Discussion Response to Teaching: Verbalize Understanding, Return Demonstration, Reinforcement Needed Time/GCodes Time In: 1400 Time Out: 1430 Total Billed Treatment Time: 30 Total Billed Treatment 1,FA15m,GT15m JANES GU VETERINARIAN EPIDEMIOLOGIST Aug 14, 2020 14:31
[2020-08-14 17:06] VITALS: BP 151/66
[2020-08-14] MEDS: MELATONIN 3 MG TABLET PO PRN (21:00)
[2020-08-15] MEDS: HYDROcodone/APAP 7.5 MG/325 MG (LORTAB, LORCET PLUS) TABLET PO PRN ×4 (04:10→15:59)
[2020-08-15 05:28] VITALS: BP 174/75
[2020-08-15] MEDS: MULTIVIT W/MINERALS TAB (THERAGRAN M) PO SCH (06:35)
[2020-08-15] MEDS: CATHETER FLUSH 10 ML SYR IV SCH ×3 (06:35→20:34)
[2020-08-15] MEDS: ONDANSETRON 4 MG/2 ML (SDV) Z0FRAN IVP PRN (07:23)
--- NOTE | 2020-08-15 07:26 | PM&R Progress Note ---
Subjective HPI/CC On Admission Date Seen by Provider: Aug 15, 2020 Time Seen by Provider: 12:15 Subjective/Events-last exam 08/15/20: Doing much better Nausea from the MVI so will DC it Pain controlled Eating better 08/14/20: Much improved status Elevated BP prompting adding Norvasc 5mg daily now Venofer maintained BM+ 08/13/20: Much improved Appetite improved Elevated BP noted so will monitor trend Venofer 3rd dose today Appreciate Dr Emanuel 08/12/20: Pt doing pretty well but still not eating well Proton pump inhibitor initiate by Dr. Emanuel seems to be helping Will DC Reglan IV Labs look good 08/11/20: Protonix initiated by Dr. Emanuel Overall feeling munch better Checked meds and labs Heplocked IV fluid Overall feels very optimistic about everything now 08/10/20: Pt doing a little better but still having burning in her stomach Dr. Emanuel will be consulted Midline will be placed for iron infusions Bowels moved today Scared to eat 08/09/20: Improved No N/V reported but is picky about eating Changing diet to regular so she can choose Flatus+ Has family issues since she disowned her children and her is dependent on her Bladder scan will be performed 08/08/20: Patient with continued N/V NPO status ordered KUB ordered to r/o obstruction and ileus Iron level will be ordered hgb 9.6 IVF started Review of Systems General: Fatigue Gastrointestinal: Nausea Musculoskeletal: leg pain Objective Exam Vital Signs Vital Signs Date Time Temp Pulse Resp B/P (MAP) Pulse Ox O2 Delivery O2 Flow Rate FiO2 08/15/20 16:00 36.7 65 14 147/67 (93) 96 Room Air Capillary Refill : Less Than 3 Seconds General Appearance: No Apparent Distress, WD/WN HEENT: PERRL/EOMI Respiratory: No Accessory Muscle Use, No Respiratory Distress Cardiovascular: Regular Rate, Rhythm, No Murmur Gastrointestinal: Normal Bowel Sounds, No Organomegaly, No Pulsatile Mass, Non Tender, Soft Back: Normal Inspection, No CVA Tenderness, No Vertebral Tenderness Extremity: Non Tender, Swelling (BLE edema, mild) Neurologic/Psychiatric: Alert, Oriented x3, No Motor/Sensory Deficits, Normal Mood/Affect Skin: Normal Color, Warm/Dry Results/Procedures Lab Patient resulted labs reviewed. FIM Transfers Therapy Code Descriptions/Definitions Functional [place] Measure: 0=Not Assessed/NA 4=Minimal Assistance 1=Total Assistance 5=Supervision or Setup 2=Maximal Assistance 6=Modified [place] 3=Moderate Assistance 7=Complete IndependenceSCALE: Activities may be completed with or without assistive devices. 8-Kghhmdasic-xpucikn completes the activity by him/herself with no assistance from a helper. 5-Set-up or Clean-up Assistance-helper sets up or cleans up; patient completes activity. [place] assists only prior to or following the activity. 4-Supervision or Touching Assistance-helper provides verbal cues and/or touching/steadying and/or contact guard assistance as patient completes activity. Assistance may be provided throughout the activity or intermittently. 3-Partial/Moderate Assistance-helper does LESS THAN HALF the effort. [place] lifts, holds or supports trunk or limbs, but provides less than half the effort. 2-Substantial/Maximal Assistance-helper does MORE THAN HALF the effort. [place] lifts or holds trunk or limbs and provides more than half the effort. 0-Silbjcuaf-bvdnow does ALL the effort. Patient does none of the effort to complete the activity. Or, the assistance of 2 or more helpers is required for the patient to complete the activity. If activity was not attempted, code reason: 7-Patient Refused. 9-Not Applicable-not attempted and the patient did not perform the activity before the current illness, exacerbation or injury. 10-Not Attempted due to Environmental Limitations-(lack of equipment, weather restraints, etc.). 88-Not Attempted due to Medical Conditions or Safety Concerns. Roll Left to Right (QC): 5 Sit to Lying (QC): 4 Sit to Stand (QC): 5 Chair/Wbg-cs-Xysjp Xfer(QC): 4 Car Transfer (QC): 3 Gait Training Does the Patient Walk?: Yes Distance: 100', 50' Walk 10 feet (QC): 4 Walk 50 ft with 2 Turns(QC): 4 Walk 150 ft (QC): 4 Walking 10ft/uneven surface-QC: 88 Gait Persons Needed: 1 Gait Assistive Device: FWW Wheelchair Training Does the Pt Use a Wheelchair?: No Distance: 20' Wheel 50 ft with 2 turns (QC): 88 Wheel 150 ft (QC): 88 Type of Wheelchair: Manual Stair Training Stair Training: Handrails/: 2 handrails #of Steps: 4 1 Step (curb) (QC): 5 4 Steps (QC): 5 12 Steps (QC): 7 Stairs: Pattern: Step to Balance Picking up an Object (QC): 88 ADL-Treatment Eating (QC): 6 Oral Hygiene (QC): 6 Shower/Bathe Self (QC): 4 Upper Body Dressing (QC): 5 Lower Body Dressing (QC): 5 On/Off Footwear (QC): 5 Toileting Hygiene (QC): 4 Toilet Transfer (QC): 4 Assessment/Plan Assessment and Plan Assess & Plan/Chief Complaint Assessment: s/p left hip fracture repair HTN Fibromyalgia Former smoker h/o DVT Hypokalemia Plan: BM regimen IRF protocol Monitor closely 08/08/20: NPO IVF Reglan Add iron level KUB 08/09/20: Improved Advance diet IVF until tomorrow Bladder scan 08/10/20: Dr Emanuel consult Replaced potassium 08/11/20: Check labs in am Pain control Improved 08/12/20: Improved status Regaining impressive function 08/13/20: PPI Pain control Venofer 08/14/20: Monitor nausea PPI Pain control Improved status 08/15/20: DC MVI Monitor nausea (1) Closed left hip fracture Status: Acute (2) History of DVT of lower extremity (3) Former smoker (4) Fibromyalgia (5) Neuropathy (6) Fall from slipping on ice Status: Acute (7) HTN (hypertension) Status: Chronic CHICHI KIM DO Aug 15, 2020 07:26
[2020-08-15] MEDS: DOCUSATE SODIUM 100 MG (COLACE) CAP PO SCH ×2 (08:07→20:34)
[2020-08-15] MEDS: ASPIRIN E.C. 81 MG (ECOTRIN) TAB PO SCH (08:07)
[2020-08-15] MEDS: LOSARTAN 100 MG (COZAAR) TABLET PO SCH (08:07)
[2020-08-15] MEDS: ENOXAPARIN 40 MG/0.4 ML (LOVENOX) SYR SC SCH (08:07)
[2020-08-15] MEDS: CARVEDILOL 12.5 MG (COREG) TABLET PO SCH ×2 (08:08→20:34)
[2020-08-15] MEDS: polyethylene glycoL POWDER 17 GM (MIRALAX) PACK PO SCH ×2 (08:08→20:35)
[2020-08-15] MEDS: SENNOSIDES 8.6 MG (SENOKOT) TAB PO SCH ×2 (08:08→20:34)
[2020-08-15] MEDS: amLODIPine 5 MG (NORVASC) TAB PO SCH (08:08)
[2020-08-15] MEDS: PANTOPRAZOLE 40 MG (PROTONIX) TAB PO SCH (08:08)
[2020-08-15] MEDS: IRON SUCROSE 200 MG/10 ML (VENOFER) VIAL IV SCH (08:13)
[2020-08-15] MEDS: LACTULOSE SYRUP 10GM/15ML (ENULOSE) 30ML UDC PO PRN (08:13)
--- NOTE | 2020-08-15 11:36 | Physical Therapy Progress Note ---
Therapy Progress Note Pt in bed, declined to participate with therapy. "I have been doing my exercises in the bed that she gave me and I got sick again this morning". PERLA ANAND DPT Aug 15, 2020 11:36
[2020-08-15 16:00] VITALS: BP 147/67
[2020-08-15] MEDS: MELATONIN 3 MG TABLET PO PRN (20:34)
[2020-08-16] MEDS: TEMAZEPAM 15 MG (RESTORIL) CAP PO PRN (01:58)
[2020-08-16] MEDS: CATHETER FLUSH 10 ML SYR IV SCH ×3 (06:18→20:26)
[2020-08-16 06:24] VITALS: BP 161/69
[2020-08-16] MEDS: LOSARTAN 100 MG (COZAAR) TABLET PO SCH (07:20)
[2020-08-16] MEDS: SENNOSIDES 8.6 MG (SENOKOT) TAB PO SCH ×2 (07:20→20:25)
[2020-08-16] MEDS: amLODIPine 5 MG (NORVASC) TAB PO SCH (07:20)
[2020-08-16] MEDS: CARVEDILOL 12.5 MG (COREG) TABLET PO SCH ×2 (07:20→20:25)
[2020-08-16] MEDS: DOCUSATE SODIUM 100 MG (COLACE) CAP PO SCH ×2 (07:20→20:25)
[2020-08-16] MEDS: PANTOPRAZOLE 40 MG (PROTONIX) TAB PO SCH (07:20)
[2020-08-16] MEDS: HYDROcodone/APAP 7.5 MG/325 MG (LORTAB, LORCET PLUS) TABLET PO PRN ×3 (07:20→16:10)
[2020-08-16] MEDS: ENOXAPARIN 40 MG/0.4 ML (LOVENOX) SYR SC SCH (07:20)
[2020-08-16] MEDS: ASPIRIN E.C. 81 MG (ECOTRIN) TAB PO SCH (07:21)
[2020-08-16] MEDS: polyethylene glycoL POWDER 17 GM (MIRALAX) PACK PO SCH ×2 (07:22→20:25)
--- NOTE | 2020-08-16 12:46 | PM&R Progress Note ---
Subjective HPI/CC On Admission Date Seen by Provider: Aug 16, 2020 Time Seen by Provider: 12:45 Subjective/Events-last exam 08/16/20: No issues Monitor BP Pain control 08/15/20: Doing much better Nausea from the MVI so will DC it Pain controlled Eating better 08/14/20: Much improved status Elevated BP prompting adding Norvasc 5mg daily now Venofer maintained BM+ 08/13/20: Much improved Appetite improved Elevated BP noted so will monitor trend Venofer 3rd dose today Appreciate Dr Emanuel 08/12/20: Pt doing pretty well but still not eating well Proton pump inhibitor initiate by Dr. Emanuel seems to be helping Will DC Reglan IV Labs look good 08/11/20: Protonix initiated by Dr. Emanuel Overall feeling munch better Checked meds and labs Heplocked IV fluid Overall feels very optimistic about everything now 08/10/20: Pt doing a little better but still having burning in her stomach Dr. Emanuel will be consulted Midline will be placed for iron infusions Bowels moved today Scared to eat 08/09/20: Improved No N/V reported but is picky about eating Changing diet to regular so she can choose Flatus+ Has family issues since she disowned her children and her is dependent o n her Bladder scan will be performed 08/08/20: Patient with continued N/V NPO status ordered KUB ordered to r/o obstruction and ileus Iron level will be ordered hgb 9.6 IVF started Review of Systems General: Fatigue Musculoskeletal: leg pain Objective Exam Vital Signs Vital Signs Date Time Temp Pulse Resp B/P (MAP) Pulse Ox O2 Delivery O2 Flow Rate FiO2 08/16/20 09:00 Room Air 08/16/20 06:24 36.8 72 18 161/69 (99) 96 Capillary Refill : Less Than 3 Seconds General Appearance: No Apparent Distress, WD/WN HEENT: PERRL/EOMI Respiratory: No Accessory Muscle Use, No Respiratory Distress Cardiovascular: Regular Rate, Rhythm, No Murmur Gastrointestinal: Normal Bowel Sounds, No Organomegaly, No Pulsatile Mass, Non Tender, Soft Back: Normal Inspection, No CVA Tenderness, No Vertebral Tenderness Extremity: Non Tender, Swelling (BLE edema, mild) Neurologic/Psychiatric: Alert, Oriented x3, No Motor/Sensory Deficits, Normal Mood/Affect Skin: Normal Color, Warm/Dry Results/Procedures Lab Patient resulted labs reviewed. FIM Transfers Therapy Code Descriptions/Definitions Functional [place] Measure: 0=Not Assessed/NA 4=Minimal Assistance 1=Total Assistance 5=Supervision or Setup 2=Maximal Assistance 6=Modified [place] 3=Moderate Assistance 7=Complete IndependenceSCALE: Activities may be completed with or without assistive devices. 9-Xkojcgegch-wnxbwli completes the activity by him/herself with no assistance from a helper. 5-Set-up or Clean-up Assistance-helper sets up or cleans up; patient completes activity. [place] assists only prior to or following the activity. 4-Supervision or Touching Assistance-helper provides verbal cues and/or touching/steadying and/or contact guard assistance as patient completes activity. Assistance may be provided throughout the activity or intermittently. 3-Partial/Moderate Assistance-helper does LESS THAN HALF the effort. [place] lifts, holds or supports trunk or limbs, but provides less than half the effort. 2-Substantial/Maximal Assistance-helper does MORE THAN HALF the effort. [place] lifts or holds trunk or limbs and provides more than half the effort. 7-Mhohhfpsw-djpizt does ALL the effort. Patient does none of the effort to complete the activity. Or, the assistance of 2 or more helpers is required for the patient to complete the activity. If activity was not attempted, code reason: 7-Patient Refused. 9-Not Applicable-not attempted and the patient did not perform the activity before the current illness, exacerbation or injury. 10-Not Attempted due to Environmental Limitations-(lack of equipment, weather restraints, etc.). 88-Not Attempted due to Medical Conditions or Safety Concerns. Roll Left to Right (QC): 5 Sit to Lying (QC): 4 Sit to Stand (QC): 5 Chair/Ygf-df-Nqjbd Xfer(QC): 4 Car Transfer (QC): 3 Gait Training Does the Patient Walk?: Yes Distance: 100', 50' Walk 10 feet (QC): 4 Walk 50 ft with 2 Turns(QC): 4 Walk 150 ft (QC): 4 Walking 10ft/uneven surface-QC: 88 Gait Persons Needed: 1 Gait Assistive Device: FWW Wheelchair Training Does the Pt Use a Wheelchair?: No Distance: 20' Wheel 50 ft with 2 turns (QC): 88 Wheel 150 ft (QC): 88 Type of Wheelchair: Manual Stair Training Stair Training: Handrails/: 2 handrails #of Steps: 4 1 Step (curb) (QC): 5 4 Steps (QC): 5 12 Steps (QC): 7 Stairs: Pattern: Step to Balance Picking up an Object (QC): 88 ADL-Treatment Eating (QC): 6 Oral Hygiene (QC): 6 Shower/Bathe Self (QC): 4 Upper Body Dressing (QC): 5 Lower Body Dressing (QC): 5 On/Off Footwear (QC): 5 Toileting Hygiene (QC): 4 Toilet Transfer (QC): 4 Assessment/Plan Assessment and Plan Assess & Plan/Chief Complaint Assessment: s/p left hip fracture repair HTN Fibromyalgia Former smoker h/o DVT Hypokalemia Plan: BM regimen IRF protocol Monitor closely 08/08/20: NPO IVF Reglan Add iron level KUB 08/09/20: Improved Advance diet IVF until tomorrow Bladder scan 08/10/20: Dr Emanuel consult Replaced potassium 08/11/20: Check labs in am Pain control Improved 08/12/20: Improved status Regaining impressive function 08/13/20: PPI Pain control Venofer 08/14/20: Monitor nausea PPI Pain control Improved status 08/15/20: DC MVI Monitor nausea 08/16/20: Pain control Nausea improved (1) Closed left hip fracture Status: Acute (2) History of DVT of lower extremity (3) Former smoker (4) Fibromyalgia (5) Neuropathy (6) Fall from slipping on ice Status: Acute (7) HTN (hypertension) Status: Chronic CHICHI KIM DO Aug 16, 2020 12:46
[2020-08-16 17:06] VITALS: BP 146/67
[2020-08-16] MEDS: MELATONIN 3 MG TABLET PO PRN (20:25)
[2020-08-17] MEDS: HYDROcodone/APAP 7.5 MG/325 MG (LORTAB, LORCET PLUS) TABLET PO PRN ×4 (01:45→20:16)
[2020-08-17] MEDS: CATHETER FLUSH 10 ML SYR IV SCH ×3 (05:19→20:16)
[2020-08-17 05:48] VITALS: BP 146/65
[2020-08-17 06:29] LABS: BASOPHILS % (AUTO) 0 % (0-10); EOSINOPHILS # (AUTO) 0.2 10^3/uL (0.0-0.3); EOSINOPHILS % (AUTO) 3 % (0-10); HEMATOCRIT 28 % (35-52); HEMOGLOBIN 9.2 g/dL (11.5-16.0); LYMPHOCYTES # (AUTO) 1.9 10^3/uL (1.0-4.0); LYMPHOCYTES % (AUTO) 29 % (12-44); MEAN CORPUSCULAR HEMOGLOBIN 32 pg (25-34); MEAN CORPUSCULAR HGB CONC 33 g/dL (32-36); MEAN CORPUSCULAR VOLUME 95 fL (80-99); MEAN PLATELET VOLUME 10.6 fL (9.0-12.2); MONOCYTES # (AUTO) 0.7 10^3/uL (0.0-1.0); MONOCYTES % (AUTO) 11 % (0-12); NEUTROPHILS # (AUTO) 3.6 10^3/uL (1.8-7.8); NEUTROPHILS % (AUTO) 55 % (42-75); PLATELET COUNT 393 10^3/uL (130-400); WHITE BLOOD COUNT 6.5 10^3/uL (4.3-11.0)
[2020-08-17 06:50] LABS: ALBUMIN 2.7 GM/DL (3.2-4.5)
[2020-08-17 06:51] LABS: CHLORIDE 102 MMOL/L (98-107); POTASSIUM 3.1 MMOL/L (3.6-5.0); SODIUM 137 MMOL/L (135-145)
[2020-08-17 06:52] LABS: CALCIUM 7.6 MG/DL (8.5-10.1)
[2020-08-17 06:53] LABS: GLUCOSE 112 MG/DL (70-105); TOTAL PROTEIN 5.1 GM/DL (6.4-8.2)
[2020-08-17 06:54] LABS: CARBON DIOXIDE 26 MMOL/L (21-32)
[2020-08-17 06:55] LABS: BILIRUBIN,TOTAL 0.5 MG/DL (0.1-1.0)
[2020-08-17 06:56] LABS: ALKALINE PHOSPHATASE 76 U/L (40-136)
[2020-08-17 06:57] LABS: CREATININE SERUM 0.73 MG/DL (0.60-1.30); GFR ESTIMATED > 60
[2020-08-17 06:58] LABS: BUN/CREATININE RATIO 10
[2020-08-17 06:59] LABS: ALANINE AMINOTRANSFERASE 24 U/L (0-55)
[2020-08-17] MEDS: DOCUSATE SODIUM 100 MG (COLACE) CAP PO SCH ×2 (08:14→20:15)
[2020-08-17] MEDS: PANTOPRAZOLE 40 MG (PROTONIX) TAB PO SCH (08:14)
[2020-08-17] MEDS: CARVEDILOL 12.5 MG (COREG) TABLET PO SCH ×2 (08:14→20:17)
[2020-08-17] MEDS: LOSARTAN 100 MG (COZAAR) TABLET PO SCH (08:14)
[2020-08-17] MEDS: ASPIRIN E.C. 81 MG (ECOTRIN) TAB PO SCH (08:14)
--- NOTE | 2020-08-17 08:15 | Occupational Ther Daily Note ---
OT Current Status-Daily Note Subjective Pt alert, lying in bed. Pt agrees to therapy. No c/o pain though requests to have pain meds prior to therapy. Nrsg notified. Mental Status/Objective Patient Orientation: Person, Place, Time, Situation ADL-Treatment Pt agrees to shower. Pt continues to decline to wear regular clothing. HOB elevated, pt able to go from supine to EOB independently using bedrails. Pt ambulates to bathroom using FWW, independently. Transfers into shower independently. Completes shower sitting on shower bench using LH sponge, grabbar and hand held shower independently (pt completes all bathing in sitting). Using AE pt able to don/doff socks and underwear, independent after set up. Standing at sink, pt completes oral care independently. Pt states that she will not need AE at home, her will be there. Pt ambulated around [facility] with 1 lengthy recovery break. Discussed ambulating in kitchen and pt stated I will be fine, I can do that already. HOB elevated, pt goes from EOB to supine independently. When asked if pt has a bed that elevates, pt stated that she has 2 recliners and a couch. Discussed completing B UE strengthening, pt states that she has been weed eating all summer and her arms are strong. Pt educated on how muscles loose strength when not in use, pt did not acknowledge. After session, pt sitting up in bed with call light/phone in reach. All needs met in room. Therapy Code Descriptions/Definitions Functional [place] Measure: 0=Not Assessed/NA 4=Minimal Assistance 1=Total Assistance 5=Supervision or Setup 2=Maximal Assistance 6=Modified [place] 3=Moderate Assistance 7=Complete IndependenceSCALE: Activities may be completed with or without assistive devices. 5-Pvrbfsfrmb-qayfalm completes the activity by him/herself with no assistance from a helper. 5-Set-up or Clean-up Assistance-helper sets up or cleans up; patient completes activity. [place] assists only prior to or following the activity. 4-Supervision or Touching Assistance-helper provides verbal cues and/or touching/steadying and/or contact guard assistance as patient completes activity. Assistance may be provided throughout the activity or intermittently. 3-Partial/Moderate Assistance-helper does LESS THAN HALF the effort. [place] lifts, holds or supports trunk or limbs, but provides less than half the effort. 2-Substantial/Maximal Assistance-helper does MORE THAN HALF the effort. [place] lifts or holds trunk or limbs and provides more than half the effort. 2-Ullujmfny-amfxbu does ALL the effort. Patient does none of the effort to complete the activity. Or, the assistance of 2 or more helpers is required for the patient to complete the activity. If activity was not attempted, code reason: 7-Patient Refused. 9-Not Applicable-not attempted and the patient did not perform the activity before the current illness, exacerbation or injury. 10-Not Attempted due to Environmental Limitations-(lack of equipment, weather restraints, etc.). 88-Not Attempted due to Medical Conditions or Safety Concerns. OT Short Term Goals Short Term Goals Shower/bathe self: 3 Upper body dressin Lower body dressin Putting on/taking off footwear: 3 OT Residential Goals Ultrasound Supervisor Goals Time Frame: Aug 21, 2020 Eating (QC): 6 Oral Hygiene (QC): 6 Toileting Hygiene (QC): 6 Shower/Bathe Self (QC): 6 Upper Body Dressing (QC): 6 Lower Body Dressing (QC): 6 On/Off Footwear (QC): 6 Additional Goals: 1-Demonstrate ADL Tasks, 2-Verbalize Understanding, 3- ImproveStrength/Pa[place] 1=Demonstrate adherence to instructed precautions during ADL tasks. 2=Patient will verbalize/demonstrate understanding of assistive devices/modifications for ADL. 3=Patient will improve strength/tolerance for activity to enable patient to perform ADL's. OT Education/Plan Problem List/Assessment Assessment: Impaired Self-Care Skills Discharge Recommendations Plan/Recommendations: Continue POC Treatment Plan/Plan of Care Patient would benefit from OT for education, treatment and training to promote independence in ADL's, mobility, safety and/or upper extremity function for ADL's. Plan of Care: ADL Retraining, Caregiver Training, Concurrent Therapy, Functional Mobility, Group Exercise/Act as Ind, UE Funct Exercise/Act, W/C Management Training Treatment Duration: Aug 21, 2020 Frequency: At least 5 of 7 days/Wk (IRF) Estimated Hrs Per Day: 1.5 hours per day Agreement: Yes Rehab Potential: Fair Time/GCodes Start Time: 07:30 Stop Time: 09:00 Total Time Billed (hr/min): 90 Billed Treatment Time 1 visit-ADL 5 (75 min) FA 1 (15 min) BRICE BATISTA Aug 17, 2020 08:15
[2020-08-17 08:16] VITALS: BP 170/73
[2020-08-17] MEDS: SENNOSIDES 8.6 MG (SENOKOT) TAB PO SCH ×2 (08:16→20:16)
[2020-08-17] MEDS: IRON SUCROSE 200 MG/10 ML (VENOFER) VIAL IV SCH (08:16)
[2020-08-17] MEDS: amLODIPine 5 MG (NORVASC) TAB PO SCH (08:16)
[2020-08-17] MEDS: ENOXAPARIN 40 MG/0.4 ML (LOVENOX) SYR SC SCH (08:16)
[2020-08-17] MEDS: polyethylene glycoL POWDER 17 GM (MIRALAX) PACK PO SCH ×2 (08:20→20:19)
[2020-08-17] MEDS ORDERED: KCL 10 MEQ TAB (MICRO K) PO SCH (09:00)
[2020-08-17] MEDS: KCL 20 MEQ TAB (K-DUR) PO SCH ×2 (09:58→20:16)
--- NOTE | 2020-08-17 10:37 | PM&R Progress Note ---
Subjective HPI/CC On Admission Date Seen by Provider: Aug 17, 2020 Time Seen by Provider: 10:30 Subjective/Events-last exam 08/17/20: Has a rash around [place]-dressing that was present Potassium was 3.1, started on potassium supplement Hgb was 9.2 Receiving iron infusions 08/16/20: No issues Monitor BP Pain control 08/15/20: Doing much better Nausea from the MVI so will DC it Pain controlled Eating better 08/14/20: Much improved status Elevated BP prompting adding Norvasc 5mg daily now Venofer maintained BM+ 08/13/20: Much improved Appetite improved Elevated BP noted so will monitor trend Venofer 3rd dose today Appreciate Dr Emanuel 08/12/20: Pt doing pretty well but still not eating well Proton pump inhibitor initiate by Dr. Emanuel seems to be helping Will DC Reglan IV Labs look good 08/11/20: Protonix initiated by Dr. Emanuel Overall feeling munch better Checked meds and labs Heplocked IV fluid Overall feels very optimistic about everything now 08/10/20: Pt doing a little better but still having burning in her stomach Dr. Emanuel will be consulted Midline will be placed for iron infusions Bowels moved today Scared to eat 08/09/20: Improved No N/V reported but is picky about eating Changing diet to regular so she can choose Flatus+ Has family issues since she disowned her children and her is dependent on her Bladder scan will be performed 08/08/20: Patient with continued N/V NPO status ordered KUB ordered to r/o obstruction and ileus Iron level will be ordered hgb 9.6 IVF started Review of Systems General: Fatigue, Malaise Musculoskeletal: leg pain Neurological: Weakness Objective Exam Vital Signs Vital Signs Date Time Temp Pulse Resp B/P (MAP) Pulse Ox O2 Delivery O2 Flow Rate FiO2 08/17/20 21:00 Room Air 08/17/20 17:54 36.6 73 18 178/71 (106) 96 Capillary Refill : Less Than 3 Seconds General Appearance: No Apparent Distress, WD/WN HEENT: PERRL/EOMI Respiratory: No Accessory Muscle Use, No Respiratory Distress Cardiovascular: Regular Rate, Rhythm, No Murmur Gastrointestinal: Normal Bowel Sounds, No Organomegaly, No Pulsatile Mass, Non Tender, Soft Back: Normal Inspection, No CVA Tenderness, No Vertebral Tenderness Extremity: Non Tender, Swelling (BLE edema, mild) Neurologic/Psychiatric: Alert, Oriented x3, No Motor/Sensory Deficits, Normal Mood/Affect Skin: Normal Color, Warm/Dry Results/Procedures Lab Laboratory Tests 08/17/20 06:20 Patient resulted labs reviewed. FIM Transfers Therapy Code Descriptions/Definitions Functional [place] Measure: 0=Not Assessed/NA 4=Minimal Assistance 1=Total Assistance 5=Supervision or Setup 2=Maximal Assistance 6=Modified [place] 3=Moderate Assistance 7=Complete IndependenceSCALE: Activities may be completed with or without assistive devices. 8-Ponsikfmof-osnitth completes the activity by him/herself with no assistance from a helper. 5-Set-up or Clean-up Assistance-helper sets up or cleans up; patient completes activity. [place] assists only prior to or following the activity. 4-Supervision or Touching Assistance-helper provides verbal cues and/or touching/steadying and/or contact guard assistance as patient completes activity. Assistance may be provided throughout the activity or intermittently. 3-Partial/Moderate Assistance-helper does LESS THAN HALF the effort. [place] lifts, holds or supports trunk or limbs, but provides less than half the effort. 2-Substantial/Maximal Assistance-helper does MORE THAN HALF the effort. [place] lifts or holds trunk or limbs and provides more than half the effort. 5-Limjvizwx-cwlkzi does ALL the effort. Patient does none of the effort to complete the activity. Or, the assistance of 2 or more helpers is required for the patient to complete the activity. If activity was not attempted, code reason: 7-Patient Refused. 9-Not Applicable-not attempted and the patient did not perform the activity before the current illness, exacerbation or injury. 10-Not Attempted due to Environmental Limitations-(lack of equipment, weather restraints, etc.). 88-Not Attempted due to Medical Conditions or Safety Concerns. Roll Left to Right (QC): 5 Sit to Lying (QC): 4 Sit to Stand (QC): 5 Chair/Zii-rn-Vsvra Xfer(QC): 4 Car Transfer (QC): 3 Gait Training Does the Patient Walk?: Yes Distance: 100', 50' Walk 10 feet (QC): 4 Walk 50 ft with 2 Turns(QC): 4 Walk 150 ft (QC): 4 Walking 10ft/uneven surface-QC: 88 Gait Persons Needed: 1 Gait Assistive Device: FWW Wheelchair Training Does the Pt Use a Wheelchair?: No Distance: 20' Wheel 50 ft with 2 turns (QC): 88 Wheel 150 ft (QC): 88 Type of Wheelchair: Manual Stair Training Stair Training: Handrails/: 2 handrails #of Steps: 4 1 Step (curb) (QC): 5 4 Steps (QC): 5 12 Steps (QC): 7 Stairs: Pattern: Step to Balance Picking up an Object (QC): 88 ADL-Treatment Eating (QC): 6 Oral Hygiene (QC): 6 Shower/Bathe Self (QC): 4 Upper Body Dressing (QC): 5 Lower Body Dressing (QC): 5 On/Off Footwear (QC): 5 Toileting Hygiene (QC): 4 Toilet Transfer (QC): 4 Assessment/Plan Assessment and Plan Assess & Plan/Chief Complaint Assessment: s/p left hip fracture repair HTN Fibromyalgia Former smoker h/o DVT Hypokalemia Plan: BM regimen IRF protocol Monitor closely 08/08/20: NPO IVF Reglan Add iron level KUB 08/09/20: Improved Advance diet IVF until tomorrow Bladder scan 08/10/20: Dr Emanuel consult Replaced potassium 08/11/20: Check labs in am Pain control Improved 08/12/20: Improved status Regaining impressive function 08/13/20: PPI Pain control Venofer 08/14/20: Monitor nausea PPI Pain control Improved status 08/15/20: DC MVI Monitor nausea 08/16/20: Pain control Nausea improved 08/17/20: Pain control DC Wed (1) Closed left hip fracture Status: Acute (2) History of DVT of lower extremity (3) Former smoker (4) Fibromyalgia (5) Neuropathy (6) Fall from slipping on ice Status: Acute (7) HTN (hypertension) Status: Chronic CHICHI KIM DO Aug 17, 2020 10:37
--- NOTE | 2020-08-17 11:12 | Physical Therapy Daily Note ---
PT Daily Note-Current Subjective Pt. reluctantly agrees to Rx. States she is ready to get out of here. "Kiara already done all that, I'm ready to rest" Pain Location: No Pain Reported Mental Status Patient Orientation: Person, Place, Situation Attachments: Other-See Comments (mask) Transfers SCALE: Activities may be completed with or without assistive devices. 8-Jxxmgrvcom-ygpscug completes the activity by him/herself with no assistance from a helper. 5-Set-up or Clean-up Assistance-helper sets up or cleans up; patient completes activity. [place] assists only prior to or following the activity. 4-Supervision or Touching Assistance-helper provides verbal cues and/or touching/steadying and/or contact guard assistance as patient completes activity. Assistance may be provided throughout the activity or intermittently. 3-Partial/Moderate Assistance-helper does LESS THAN HALF the effort. [place] lifts, holds or supports trunk or limbs, but provides less than half the effort. 2-Substantial/Maximal Assistance-helper does MORE THAN HALF the effort. [place] lifts or holds trunk or limbs and provides more than half the effort. 3-Zdjrxzjaz-zfxbgh does ALL the effort. Patient does none of the effort to complete the activity. Or, the assistance of 2 or more helpers is required for the patient to complete the activity. If activity was not attempted, code reason: 7-Patient Refused. 9-Not Applicable-not attempted and the patient did not perform the activity before the current illness, exacerbation or injury. 10-Not Attempted due to Environmental Limitations-(lack of equipment, weather restraints, etc.). 88-Not Attempted due to Medical Conditions or Safety Concerns. Roll Left & Right (QC): 6 Sit to Lying (QC): 6 Lying to Sitting/Side of Bed(Q: 6 Sit to Stand (QC): 6 Chair/Qzy-hy-Meidv Xfer(QC): 6 Toilet Transfer (QC): 6 warned of crossover precaution as pt. used RLE to lift LLE in to bed. Weight Bearing Left Lower Extremity: Left Weight Bearing/Tolerated JOVANI precautions Gait Training Does the Patient Walk?: Yes Walk 10 feet (QC): 5 Walk 50 ft with 2 Turns(QC): 5 Walk 150 ft (QC): 5 Gait Persons Needed: 1 Gait Assistive Device: FWW pt. continues heavy wt bearing on FWW, noted that pt does not completely wt bear on left heel and does not attempt to full wt bear on Left. pt. worked on this and was able to correct it. Stair Training Stair Training: Handrails/: 2 handrails #of Steps: 4 4 Steps (QC): 4 12 Steps (QC): 88 Stairs: Pattern: Step to Exercises Supine Ex: Ankle pumps, Quad Set, Rolling, Glut sets, Heel Slides, Short Arc Quads, Scooting, Straight leg raise, Hip abd/add Supine Reps: 20 Seated Therapy Exercises: Ankle pumps, Sit to stand, Long arc quads Seated Reps: 12 Treatments re educated in precautions Assessment Current Status: Good Progress PT Short Term Goals Short Term Goals Time Frame: Aug 14, 2020 Roll Left & Right: 6 Sit to lyin Lying to sitting on side of be: 4 Sit to stand: 4 (met) Chair/kau-qn-xwata transfer: 4 (met) Walk 10 feet: 4 (met) Walk 50 feet with two turns: 4 (met) PT Shelter Goals Straw Hat Brim Raiser Operator Goals PT Straw Hat Brim Raiser Operator Goals Time Frame: Aug 28, 2020 Roll Left & Right (QC): 6 Sit to Lying (QC): 6 Lying-Sitting on Side/Bed(QC): 6 Sit to Stand (QC): 6 Chair/Hus-if-Fiucu Xfer(QC): 6 Toilet Transfer (QC): 6 Car Transfer (QC): 6 Does the Patient Walk: Yes Walk 10 feet (QC): 6 Walk 50ft with 2 Turns (QC): 6 Walk 150 ft (QC): 6 Walking 10ft on Uneven Surface: 6 1 Step (curb) (QC): 5 4 Steps (QC): 5 12 Steps (QC): 88 Picking up an Object (QC): 88 Wheel 50 feet with 2 turns (QC: 9 Wheel 150 feet: 9 PT Plan Treatment/Plan Treatment Plan: Continue Plan of Care Treatment Plan: Bed Mobility, Education, Functional Activity Papa, Functional Strength, Group Therapy, Gait, Safety, Therapeutic Exercise, Transfers Treatment Duration: Aug 28, 2020 Frequency: At least 5 of 7 days/Wk (IRF) Estimated Hrs Per Day: 1.5 hours per day Patient and/or Family Agrees t: Yes Safety Risks/Education Patient Education: Gait Training, Transfer Techniques, Steps, Correct Positioning, Disease Process, Safety Issues Teaching Recipient: Patient Teaching Methods: Demonstration, Discussion Response to Teaching: Verbalize Understanding, Return Demonstration, Reinforcement Needed Time/GCodes Time In: 1015 Time Out: 1100 Total Billed Treatment Time: 45 Total Billed Treatment 1,FA15m,EX15m,GT15m JANES GU SALES ACCOUNT REPRESENTATIVE Aug 17, 2020 11:12
--- NOTE | 2020-08-17 13:47 | Physical Therapy Daily Note ---
PT Daily Note-Current Subjective Pt. states she does foot and ankle exercises "all the time". Pt. able to recite 2/3 THR precautions accurately. Pt. voices again that she has been in the hospital a long time and is very ready to go home. Pain Location: No Pain Reported Mental Status Patient Orientation: Person, Place, Time, Situation pt. appears irritable both Rxs today. OT states they experience the same. Also some minimal sequence and memory issues Transfers SCALE: Activities may be completed with or without assistive devices. 9-Xzvvxesfwu-urpscxj completes the activity by him/herself with no assistance from a helper. 5-Set-up or Clean-up Assistance-helper sets up or cleans up; patient completes activity. [place] assists only prior to or following the activity. 4-Supervision or Touching Assistance-helper provides verbal cues and/or touching/steadying and/or contact guard assistance as patient completes activity. Assistance may be provided throughout the activity or intermittently. 3-Partial/Moderate Assistance-helper does LESS THAN HALF the effort. [place] lifts, holds or supports trunk or limbs, but provides less than half the effort. 2-Substantial/Maximal Assistance-helper does MORE THAN HALF the effort. [place] lifts or holds trunk or limbs and provides more than half the effort. 5-Yyuyrrqmu-oxibck does ALL the effort. Patient does none of the effort to complete the activity. Or, the assistance of 2 or more helpers is required for the patient to complete the activity. If activity was not attempted, code reason: 7-Patient Refused. 9-Not Applicable-not attempted and the patient did not perform the activity before the current illness, exacerbation or injury. 10-Not Attempted due to Environmental Limitations-(lack of equipment, weather restraints, etc.). 88-Not Attempted due to Medical Conditions or Safety Concerns. Roll Left & Right (QC): 6 Lying to Sitting/Side of Bed(Q: 6 (from flat bed) Sit to Stand (QC): 6 Chair/Icx-ax-Ottiq Xfer(QC): 6 Toilet Transfer (QC): 6 Weight Bearing Left Lower Extremity: Left Weight Bearing/Tolerated JOVANI precautions Gait Training Does the Patient Walk?: Yes Gait Assistive Device: FWW emphasis on turning and following hip precautions [place] for int rotation of left hip. Exercises Supine Ex: Ankle pumps, Quad Set, Glut sets, Heel Slides, Short Arc Quads, Scooting, Straight leg raise, Hip abd/add Supine Reps: 15 Treatments toileted SBA, gait , TRFs, turning left and right in small spaces, LE exercises, THR prec review Assessment Current Status: Good Progress PT Short Term Goals Short Term Goals Time Frame: Aug 14, 2020 Roll Left & Right: 6 Sit to lyin Lying to sitting on side of be: 4 Sit to stand: 4 (met) Chair/omp-xq-fgroo transfer: 4 (met) Walk 10 feet: 4 (met) Walk 50 feet with two turns: 4 (met) PT High School Director Goals High School Director Goals PT Correction Goals Time Frame: Aug 28, 2020 Roll Left & Right (QC): 6 Sit to Lying (QC): 6 Lying-Sitting on Side/Bed(QC): 6 Sit to Stand (QC): 6 Chair/Fbe-nk-Jofts Xfer(QC): 6 Toilet Transfer (QC): 6 Car Transfer (QC): 6 Does the Patient Walk: Yes Walk 10 feet (QC): 6 Walk 50ft with 2 Turns (QC): 6 Walk 150 ft (QC): 6 Walking 10ft on Uneven Surface: 6 1 Step (curb) (QC): 5 4 Steps (QC): 5 12 Steps (QC): 88 Picking up an Object (QC): 88 Wheel 50 feet with 2 turns (QC: 9 Wheel 150 feet: 9 PT Plan Treatment/Plan Treatment Plan: Continue Plan of Care Treatment Plan: Bed Mobility, Education, Functional Activity Papa, Functional Strength, Group Therapy, Gait, Safety, Therapeutic Exercise, Transfers Treatment Duration: Aug 28, 2020 Frequency: At least 5 of 7 days/Wk (IRF) Estimated Hrs Per Day: 1.5 hours per day Patient and/or Family Agrees t: Yes Safety Risks/Education Patient Education: Gait Training, Transfer Techniques, Reviewed Precautions, Correct Positioning, Safety Issues Teaching Recipient: Patient Teaching Methods: Demonstration, Discussion Response to Teaching: Verbalize Understanding, Return Demonstration, Reinforcement Needed Time/GCodes Time In: 1300 Time Out: 1345 Total Billed Treatment Time: 45 Total Billed Treatment 1,FA15m,EX15m,Gt15m JANES GU PTA Aug 17, 2020 13:47
[2020-08-17 17:54] VITALS: BP 178/71
[2020-08-17] MEDS: MELATONIN 3 MG TABLET PO PRN (20:16)
[2020-08-18] MEDS: TEMAZEPAM 15 MG (RESTORIL) CAP PO PRN (01:19)
[2020-08-18] MEDS: CATHETER FLUSH 10 ML SYR IV SCH ×3 (05:57→20:35)
[2020-08-18 06:23] VITALS: BP 158/69
[2020-08-18] MEDS: KCL 20 MEQ TAB (K-DUR) PO SCH ×2 (08:07→20:34)
[2020-08-18] MEDS: ENOXAPARIN 40 MG/0.4 ML (LOVENOX) SYR SC SCH (08:07)
[2020-08-18] MEDS: amLODIPine 5 MG (NORVASC) TAB PO SCH (08:07)
[2020-08-18] MEDS: LOSARTAN 100 MG (COZAAR) TABLET PO SCH (08:07)
[2020-08-18] MEDS: PANTOPRAZOLE 40 MG (PROTONIX) TAB PO SCH (08:07)
[2020-08-18] MEDS: CARVEDILOL 12.5 MG (COREG) TABLET PO SCH ×2 (08:07→20:34)
[2020-08-18] MEDS: ASPIRIN E.C. 81 MG (ECOTRIN) TAB PO SCH (08:07)
[2020-08-18] MEDS: polyethylene glycoL POWDER 17 GM (MIRALAX) PACK PO SCH ×2 (08:08→22:37)
[2020-08-18] MEDS: SENNOSIDES 8.6 MG (SENOKOT) TAB PO SCH ×2 (08:08→22:37)
[2020-08-18] MEDS: DOCUSATE SODIUM 100 MG (COLACE) CAP PO SCH ×2 (08:08→22:37)
--- NOTE | 2020-08-18 09:56 | Physical Therapy Daily Note ---
PT Daily Note-Current Subjective Pt sitting up in bed upon arrival. Pt agrees to PT. Pain Location: No Pain Reported Mental Status Patient Orientation: Person, Place, Time, Situation Transfers SCALE: Activities may be completed with or without assistive devices. 7-Oqzvckikzh-rtialym completes the activity by him/herself with no assistance from a helper. 5-Set-up or Clean-up Assistance-helper sets up or cleans up; patient completes activity. [place] assists only prior to or following the activity. 4-Supervision or Touching Assistance-helper provides verbal cues and/or touching/steadying and/or contact guard assistance as patient completes activity. Assistance may be provided throughout the activity or intermittently. 3-Partial/Moderate Assistance-helper does LESS THAN HALF the effort. [place] lifts, holds or supports trunk or limbs, but provides less than half the effort. 2-Substantial/Maximal Assistance-helper does MORE THAN HALF the effort. [place] lifts or holds trunk or limbs and provides more than half the effort. 1-Errpsqlbe-grsppr does ALL the effort. Patient does none of the effort to complete the activity. Or, the assistance of 2 or more helpers is required for the patient to complete the activity. If activity was not attempted, code reason: 7-Patient Refused. 9-Not Applicable-not attempted and the patient did not perform the activity before the current illness, exacerbation or injury. 10-Not Attempted due to Environmental Limitations-(lack of equipment, weather restraints, etc.). 88-Not Attempted due to Medical Conditions or Safety Concerns. Roll Left & Right (QC): 6 Sit to Lying (QC): 6 Lying to Sitting/Side of Bed(Q: 6 Sit to Stand (QC): 6 Chair/Ogt-iq-Tkutn Xfer(QC): 6 Toilet Transfer (QC): 6 Car Transfer (QC): 6 Weight Bearing Left Lower Extremity: Left Weight Bearing/Tolerated JOVANI precautions Gait Training Does the Patient Walk?: Yes Distance: 150', 50' & 75' Walk 10 feet (QC): 6 Walk 50 ft with 2 Turns(QC): 6 Walk 150 ft (QC): 6 Walking 10ft/uneven surface-QC: 6 Gait Persons Needed: 1 Gait Assistive Device: FWW Pt still walking gingerly on L LE. Wheelchair Training Does the Pt Use a Wheelchair?: No Stair Training Stair Training: Handrails/: 2 handrails #of Steps: 4 1 Step (curb) (QC): 6 4 Steps (QC): 7 12 Steps (QC): 7 Stairs: Pattern: Step to Balance Picking up an Object (QC): 88 Special Test Comments Pt has multiple reachers at home and will use though since she has Hip Precautions. Treatments Pt completes QC scoring items listed above including transfers, ambulation & stairs. Pt returns to room at end of tx to rest in bed with all needs met. Call light in hand. Assessment Current Status: Good Progress Pt meena. tx well. PT Short Term Goals Short Term Goals Time Frame: Aug 14, 2020 Roll Left & Right: 6 Sit to lyin Lying to sitting on side of be: 4 Sit to stand: 4 (met) Chair/bnu-pq-rhmsk transfer: 4 (met) Walk 10 feet: 4 (met) Walk 50 feet with two turns: 4 (met) PT Phlebotomy Specialist Goals Half-Way Goals PT Phlebotomy Specialist Goals Time Frame: Aug 28, 2020 Roll Left & Right (QC): 6 Sit to Lying (QC): 6 Lying-Sitting on Side/Bed(QC): 6 Sit to Stand (QC): 6 Chair/Iqi-ta-Ooeqj Xfer(QC): 6 Toilet Transfer (QC): 6 Car Transfer (QC): 6 Does the Patient Walk: Yes Walk 10 feet (QC): 6 Walk 50ft with 2 Turns (QC): 6 Walk 150 ft (QC): 6 Walking 10ft on Uneven Surface: 6 1 Step (curb) (QC): 5 4 Steps (QC): 5 12 Steps (QC): 88 Picking up an Object (QC): 88 Wheel 50 feet with 2 turns (QC: 9 Wheel 150 feet: 9 PT Plan Treatment/Plan Treatment Plan: Continue Plan of Care Treatment Plan: Bed Mobility, Education, Functional Activity Papa, Functional Strength, Group Therapy, Gait, Safety, Therapeutic Exercise, Transfers Treatment Duration: Aug 28, 2020 Frequency: At least 5 of 7 days/Wk (IRF) Estimated Hrs Per Day: 1.5 hours per day Patient and/or Family Agrees t: Yes Time/GCodes Time In: 900 Time Out: 1000 Total Billed Treatment Time: 60 Total Billed Treatment 1, FA x2 (30m), GT (15m) & EX (15m) EUSEBIO [place] ALL AROUND PATTERNMAKER Aug 18, 2020 09:56
--- NOTE | 2020-08-18 10:45 | PM&R Progress Note ---
Subjective HPI/CC On Admission Date Seen by Provider: Aug 18, 2020 Time Seen by Provider: 10:30 Subjective/Events-last exam 08/18/20: Pt ready for DC tomorrow Appears to be very tired No issues reported Home health will be ordered 08/17/20: Has a rash [place]-dressing that was present Potassium was 3.1, started on potassium supplement Hgb was 9.2 Receiving iron infusions 08/16/20: No issues Monitor BP Pain control 08/15/20: Doing much better Nausea from the MVI so will DC it Pain controlled Eating better 08/14/20: Much improved status Elevated BP prompting adding Norvasc 5mg daily now Venofer maintained BM+ 08/13/20: Much improved Appetite improved Elevated BP noted so will monitor trend Venofer 3rd dose today Appreciate Dr Emanuel 08/12/20: Pt doing pretty well but still not eating well Proton pump inhibitor initiate by Dr. Emanuel seems to be helping Will DC Reglan IV Labs look good 08/11/20: Protonix initiated by Dr. Emanuel Overall feeling munch better Checked meds and labs Heplocked IV fluid Overall feels very optimistic about everything now 08/10/20: Pt doing a little better but still having burning in her stomach Dr. Emanuel will be consulted Midline will be placed for iron infusions Bowels moved today Scared to eat 08/09/20: Improved No N/V reported but is picky about eating Changing diet to regular so she can choose Flatus+ Has family issues since she disowned her children and her is dependent on her Bladder scan will be performed 08/08/20: Patient with continued N/V NPO status ordered KUB ordered to r/o obstruction and ileus Iron level will be ordered hgb 9.6 IVF started Review of Systems General: Fatigue, Malaise Musculoskeletal: leg pain Objective Exam Vital Signs Vital Signs Date Time Temp Pulse Resp B/P (MAP) Pulse Ox O2 Delivery O2 Flow Rate FiO2 08/18/20 20:40 Room Air 08/18/20 16:00 36.8 78 16 168/73 (104) 97 Capillary Refill : Less Than 3 Seconds General Appearance: No Apparent Distress, WD/WN HEENT: PERRL/EOMI Respiratory: No Accessory Muscle Use, No Respiratory Distress Cardiovascular: Regular Rate, Rhythm, No Murmur Gastrointestinal: Normal Bowel Sounds, No Organomegaly, No Pulsatile Mass, Non Tender, Soft Back: Normal Inspection, No CVA Tenderness, No Vertebral Tenderness Extremity: Non Tender, Swelling (BLE edema, mild) Neurologic/Psychiatric: Alert, Oriented x3, No Motor/Sensory Deficits, Normal Mood/Affect Skin: Normal Color, Warm/Dry Results/Procedures Lab Patient resulted labs reviewed. FIM Transfers Therapy Code Descriptions/Definitions Functional [place] Measure: 0=Not Assessed/NA 4=Minimal Assistance 1=Total Assistance 5=Supervision or Setup 2=Maximal Assistance 6=Modified [place] 3=Moderate Assistance 7=Complete IndependenceSCALE: Activities may be completed with or without assistive devices. 9-Ezsjuvhvev-ipsmcwj completes the activity by him/herself with no assistance from a helper. 5-Set-up or Clean-up Assistance-helper sets up or cleans up; patient completes activity. [place] assists only prior to or following the activity. 4-Supervision or Touching Assistance-helper provides verbal cues and/or touching/steadying and/or contact guard assistance as patient completes activity. Assistance may be provided throughout the activity or intermittently. 3-Partial/Moderate Assistance-helper does LESS THAN HALF the effort. [place] lifts, holds or supports trunk or limbs, but provides less than half the effort. 2-Substantial/Maximal Assistance-helper does MORE THAN HALF the effort. [place] lifts or holds trunk or limbs and provides more than half the effort. 3-Ukqmjwbit-jflevp does ALL the effort. Patient does none of the effort to complete the activity. Or, the assistance of 2 or more helpers is required for the patient to complete the activity. If activity was not attempted, code reason: 7-Patient Refused. 9-Not Applicable-not attempted and the patient did not perform the activity before the current illness, exacerbation or injury. 10-Not Attempted due to Environmental Limitations-(lack of equipment, weather restraints, etc.). 88-Not Attempted due to Medical Conditions or Safety Concerns. Roll Left to Right (QC): 6 Sit to Lying (QC): 6 Sit to Stand (QC): 6 Chair/Prs-iw-[place] Xfer(QC): 6 Car Transfer (QC): 6 Gait Training Does the Patient Walk?: Yes Distance: 150', 50' & 75' Walk 10 feet (QC): 6 Walk 50 ft with 2 Turns(QC): 6 Walk 150 ft (QC): 6 Walking 10ft/uneven surface-QC: 6 Gait Persons Needed: 1 Gait Assistive Device: FWW Wheelchair Training Does the Pt Use a Wheelchair?: No Distance: 20' Wheel 50 ft with 2 turns (QC): 88 Wheel 150 ft (QC): 88 Type of Wheelchair: Manual Stair Training Stair Training: Handrails/: 2 handrails #of Steps: 4 1 Step (curb) (QC): 6 4 Steps (QC): 7 12 Steps (QC): 7 Stairs: Pattern: Step to Balance Picking up an Object (QC): 88 ADL-Treatment Eating (QC): 6 Oral Hygiene (QC): 6 Shower/Bathe Self (QC): 4 Upper Body Dressing (QC): 5 Lower Body Dressing (QC): 5 On/Off Footwear (QC): 5 Toileting Hygiene (QC): 4 Toilet Transfer (QC): 4 Assessment/Plan Assessment and Plan Assess & Plan/Chief Complaint Assessment: s/p left hip fracture repair HTN Fibromyalgia Former smoker h/o DVT Hypokalemia Plan: BM regimen IRF protocol Monitor closely 08/08/20: NPO IVF Reglan Add iron level KUB 08/09/20: Improved Advance diet IVF until tomorrow Bladder scan 08/10/20: Dr Emanuel consult Replaced potassium 08/11/20: Check labs in am Pain control Improved 08/12/20: Improved status Regaining impressive function 08/13/20: PPI Pain control Venofer 08/14/20: Monitor nausea PPI Pain control Improved status 08/15/20: DC MVI Monitor nausea 08/16/20: Pain control Nausea improved 08/17/20: Pain control DC 08/18/20: DC tomorrow (1) Closed left hip fracture Status: Acute (2) History of DVT of lower extremity (3) Former smoker (4) Fibromyalgia (5) Neuropathy (6) Fall from slipping on ice Status: Acute (7) HTN (hypertension) Status: Chronic CHICHI KIM DO Aug 18, 2020 10:45
--- NOTE | 2020-08-18 11:26 | Occupational Ther Daily Note ---
OT Current Status-Daily Note Subjective Pt alert, sitting in recliner. Pt agrees to therapy. No c/o pain at this time. Mental Status/Objective Patient Orientation: Person, Place, Time, Situation Attachments: IV ADL-Treatment Pt agrees to shower. Pt able to independently ambulate to bathroom and complete functional transfers using FWW. Pt completed all bathing sitting on shower bench using hand held shower and LH sponge, independently. Pt continues to refuse regular clothing. Pt is able to dress lower body with AE to adhere to hip precautions, independent after set up. Pt continues to refuse to get hip kit or any AE to assist with lower body dressing. Stated that if she needed it when she gets home they will buy it. Pt stands at sink to complete oral care independently. Using clinical judgment and previous therapy sessions, pt is able to complete toilet transfer and toileting independently. Using clinical judgment pt is able to open containers/packages and use regular utensils to eat. Therapy Code Descriptions/Definitions Functional [place] Measure: 0=Not Assessed/NA 4=Minimal Assistance 1=Total Assistance 5=Supervision or Setup 2=Maximal Assistance 6=Modified [place] 3=Moderate Assistance 7=Complete IndependenceSCALE: Activities may be completed with or without assistive devices. 1-Ztjkotkolo-hhfthks completes the activity by him/herself with no assistance from a helper. 5-Set-up or Clean-up Assistance-helper sets up or cleans up; patient completes activity. [place] assists only prior to or following the activity. 4-Supervision or Touching Assistance-helper provides verbal cues and/or touching/steadying and/or contact guard assistance as patient completes activity. Assistance may be provided throughout the activity or intermittently. 3-Partial/Moderate Assistance-helper does LESS THAN HALF the effort. [place] lifts, holds or supports trunk or limbs, but provides less than half the effort. 2-Substantial/Maximal Assistance-helper does MORE THAN HALF the effort. [place] lifts or holds trunk or limbs and provides more than half the effort. 2-Gugefccxk-mgaasz does ALL the effort. Patient does none of the effort to complete the activity. Or, the assistance of 2 or more helpers is required for the patient to complete the activity. If activity was not attempted, code reason: 7-Patient Refused. 9-Not Applicable-not attempted and the patient did not perform the activity before the current illness, exacerbation or injury. 10-Not Attempted due to Environmental Limitations-(lack of equipment, weather restraints, etc.). 88-Not Attempted due to Medical Conditions or Safety Concerns. Eating (QC): 6 Oral Hygiene (QC): 6 Shower/Bathe Self (QC): 6 Upper Body Dressing (QC): 5 Lower Body Dressing (QC): 5 On/Off Footwear: 5 Toileting Hygiene (QC): 6 Toilet Transfer (QC): 6 Other Treatment Using HEP handout, pt is able to complete B UE exercises using medium resistance theraband with only 1 verbal cue for correct technique. After therapy, pt sitting in recliner with call light/phone in reach. All needs met in room. OT Short Term Goals Short Term Goals Shower/bathe self: 3 Upper body dressin Lower body dressin Putting on/taking off footwear: 3 OT Retirement Goals Claims Supervisor Goals Time Frame: Aug 21, 2020 Eating (QC): 6 (met) Oral Hygiene (QC): 6 (met) Toileting Hygiene (QC): 6 (met) Shower/Bathe Self (QC): 6 (met) Upper Body Dressing (QC): 6 (not met) Lower Body Dressing (QC): 6 (not met) On/Off Footwear (QC): 6 (not met) Additional Goals: 1-Demonstrate ADL Tasks, 2-Verbalize Understanding, 3- ImproveStrength/Papa 1=Demonstrate adherence to instructed precautions during ADL tasks. 2=Patient will verbalize/demonstrate understanding of assistive devic es/modifications for ADL. 3=Patient will improve strength/tolerance for activity to enable patient to perform ADL's. OT Education/Plan Problem List/Assessment Assessment: Impaired Self-Care Skills Discharge Recommendations Plan/Recommendations: Continue POC Treatment Plan/Plan of Care Patient would benefit from OT for education, treatment and training to promote independence in ADL's, mobility, safety and/or upper extremity function for ADL's. Plan of Care: ADL Retraining, Caregiver Training, Concurrent Therapy, Functional Mobility, Group Exercise/Act as Ind, UE Funct Exercise/Act, W/C Management Training Treatment Duration: Aug 21, 2020 Frequency: At least 5 of 7 days/Wk (IRF) Estimated Hrs Per Day: 1.5 hours per day Agreement: Yes Rehab Potential: Fair Time/GCodes Start Time: 07:30 Stop Time: 09:00 Total Time Billed (hr/min): 90 Billed Treatment Time 1 visit-ADL 5 (75 min) EX 1 (15 min) BRICE BATISTA Aug 18, 2020 11:26
--- NOTE | 2020-08-18 13:37 | Physical Therapy Daily Note ---
PT Daily Note-Current Subjective Pt laying Supine in bed upon arrival. Pt agrees to PT. Mental Status Patient Orientation: Person, Place, Time, Situation Transfers SCALE: Activities may be completed with or without assistive devices. 3-Urcakzoumo-rwvhhcx completes the activity by him/herself with no assistance from a helper. 5-Set-up or Clean-up Assistance-helper sets up or cleans up; patient completes activity. [place] assists only prior to or following the activity. 4-Supervision or Touching Assistance-helper provides verbal cues and/or touching/steadying and/or contact guard assistance as patient completes activity. Assistance may be provided throughout the activity or intermittently. 3-Partial/Moderate Assistance-helper does LESS THAN HALF the effort. [place] lifts, holds or supports trunk or limbs, but provides less than half the effort. 2-Substantial/Maximal Assistance-helper does MORE THAN HALF the effort. [place] lifts or holds trunk or limbs and provides more than half the effort. 1-Umiityuwx-ssnxog does ALL the effort. Patient does none of the effort to complete the activity. Or, the assistance of 2 or more helpers is required for the patient to complete the activity. If activity was not attempted, code reason: 7-Patient Refused. 9-Not Applicable-not attempted and the patient did not perform the activity before the current illness, exacerbation or injury. 10-Not Attempted due to Environmental Limitations-(lack of equipment, weather restraints, etc.). 88-Not Attempted due to Medical Conditions or Safety Concerns. Weight Bearing Left Lower Extremity: Left Weight Bearing/Tolerated JOVANI precautions Treatments ELECTRIC TAPE SLITTER reviewed written HEP for Supine & Seated Ex. Pt also asked questions as far a DC for tomorrow and what that entails. Pt resting in bed at end of tx. with all needs met, call light in hand. Assessment Current Status: Good Progress Pt meena. tx. well. PT Short Term Goals Short Term Goals Time Frame: Aug 14, 2020 Roll Left & Right: 6 Sit to lyin Lying to sitting on side of be: 4 Sit to stand: 4 (met) Chair/vft-uk-oiemh transfer: 4 (met) Walk 10 feet: 4 (met) Walk 50 feet with two turns: 4 (met) PT Carbon Paste Mixer Operator Goals Carbon Paste Mixer Operator Goals PT Carbon Paste Mixer Operator Goals Time Frame: Aug 28, 2020 Roll Left & Right (QC): 6 Sit to Lying (QC): 6 Lying-Sitting on Side/Bed(QC): 6 Sit to Stand (QC): 6 Chair/Eia-gc-[place] Xfer(QC): 6 Toilet Transfer (QC): 6 Car Transfer (QC): 6 Does the Patient Walk: Yes Walk 10 feet (QC): 6 Walk 50ft with 2 Turns (QC): 6 Walk 150 ft (QC): 6 Walking 10ft on Uneven Surface: 6 1 Step (curb) (QC): 5 4 Steps (QC): 5 12 Steps (QC): 88 Picking up an Object (QC): 88 Wheel 50 feet with 2 turns (QC: 9 Wheel 150 feet: 9 PT Plan Treatment/Plan Treatment Plan: Continue Plan of Care Treatment Plan: Bed Mobility, Education, Functional Activity Papa, Functional Strength, Group Therapy, Gait, Safety, Therapeutic Exercise, Transfers Treatment Duration: Aug 28, 2020 Frequency: At least 5 of 7 days/Wk (IRF) Estimated Hrs Per Day: 1.5 hours per day Patient and/or Family Agrees t: Yes Safety Risks/Education Patient Education: Correct Positioning, Safety Issues Teaching Recipient: Patient Teaching Methods: Discussion Response to Teaching: Verbalize Understanding Time/GCodes Time In: 1300 Time Out: 1330 Total Billed Treatment Time: 30 Total Billed Treatment 1, FA (10m) & Ex (20m) EUSEBIO [place] PTA Aug 18, 2020 13:37
[2020-08-18 16:00] VITALS: BP 168/73
[2020-08-18] MEDS: HYDROcodone/APAP 7.5 MG/325 MG (LORTAB, LORCET PLUS) TABLET PO PRN ×2 (20:34→23:58)
[2020-08-18] MEDS: MELATONIN 3 MG TABLET PO PRN (20:36)
[2020-08-19] MEDS ORDERED: LOSA100T57 PO (05:41)
[2020-08-19] MEDS ORDERED: CARV12.53 PO (05:41)
[2020-08-19] MEDS ORDERED: ASPI-1238 PO (05:41)
[2020-08-19] MEDS ORDERED: POTA20TA8 PO (05:41)
[2020-08-19] MEDS ORDERED: PANT40TA52 PO (05:41)
[2020-08-19] MEDS ORDERED: AMLO-250 PO (05:41)
[2020-08-19] MEDS ORDERED: HYDR-34 PO (05:41)
--- NOTE | 2020-08-19 05:44 | Discharge Summary ---
Diagnosis/Chief Complaint Date of Admission Aug 07, 2020 at 09:55 Date of Discharge Discharge Date: Aug 19, 2020 Discharge Diagnosis Assessment: s/p left hip fracture repair HTN Fibromyalgia Former smoker h/o DVT Hypokalemia Plan: BM regimen IRF protocol Monitor closely 08/08/20: NPO IVF Reglan Add iron level KUB 08/09/20: Improved Advance diet IVF until tomorrow Bladder scan 08/10/20: Dr Emanuel consult Replaced potassium 08/11/20: Check labs in am Pain control Improved 08/12/20: Improved status Regaining impressive function 08/13/20: PPI Pain control Venofer 08/14/20: Monitor nausea PPI Pain control Improved status 08/15/20: DC MVI Monitor nausea 08/16/20: Pain control Nausea improved 08/17/20: Pain control DC 08/18/20: DC tomorrow (1) Closed left hip fracture Status: Acute (2) History of DVT of lower extremity (3) Former smoker (4) Fibromyalgia (5) Neuropathy (6) Fall from slipping on ice Status: Acute (7) HTN (hypertension) Status: Chronic Discharge Summary Discharge Physical Examination Allergies: Coded Allergies: morphine (Verified Allergy, Mild, 08/04/20) divalproex sodium (Verified Allergy, Unknown, 08/04/20) iodine (Verified Allergy, Unknown, 08/04/20) meloxicam (Verified Allergy, Unknown, 08/04/20) rosuvastatin (Verified Allergy, Unknown, 08/04/20) Vitals & I&Os Vital Signs Date Time Temp Pulse Resp B/P (MAP) Pulse Ox O2 Delivery O2 Flow Rate FiO2 08/19/20 11:04 36.8 81 17 171/75 95 Room Air General Appearance: Alert, Oriented X3, Cooperative Respiratory: Clear to Auscultation Cardiovascular: Regular Rate Psych/Mental Status: Mental Status NL Hospital Course Was the Problem List Reviewed?: Yes Hospital course: Pt had an uneventful hospital course for thirteen days when she was admitted for left hip fracture recovery, she underwent iron infusions and her subsequent Hgb was 9.2, had some issues with nausea and vomiting, Dr. Emanuel consulted and Pt was placed on PPI with good results and multivitamin was discontinued and that resolved. Bowel function returned back to normal, pain was well controlled and she was discharged in improved condition. Labs (last 24 hrs) Laboratory Tests 08/08/20 04:47: White Blood Count 8.2, Red Blood Count 2.98L, Hemoglobin 9.2L, Hematocrit 27L, Mean Corpuscular Volume 91, Mean Corpuscular Hemoglobin 31, Mean Corpuscular Hemoglobin Concent 34, Red Cell Distribution Width 12.4, Platelet Count 249, Mean Platelet Volume 10.9, Immature Granulocyte % (Auto) 1, Neutrophils (%) (Auto) 64, Lymphocytes (%) (Auto) 24, Monocytes (%) (Auto) 11, Eosinophils (%) (Auto) 1, Basophils (%) (Auto) 0, Neutrophils # (Auto) 5.2, Lymphocytes # (Auto) 1.9, Monocytes # (Auto) 0.9, Eosinophils # (Auto) 0.1, Basophils # (Auto) 0.0, Immature Granulocyte # (Auto) 0.0, Sodium Level 133L, Potassium Level 3.6, Chloride Level 102, Carbon Dioxide Level 23, Anion Gap 8, Blood Urea Nitrogen 21H, Creatinine 0.82, Estimat Glomerular Filtration Rate > 60, BUN/Creatinine Ratio 26, Glucose Level 104, Calcium Level 8.2L, Corrected Calcium 9.2, Iron Level 19L, Total Bilirubin 0.5, Aspartate Amino Transf (AST/SGOT) 39H, Alanine A minotransferase (ALT/SGPT) 26, Alkaline Phosphatase 42, Total Protein 5.3L, Albumin 2.8L 08/10/20 04:59: White Blood Count 6.9, Red Blood Count 2.78L, Hemoglobin 8.7L, Hematocrit 25L, Mean Corpuscular Volume 91, Mean Corpuscular Hemoglobin 31, Mean Corpuscular Hemoglobin Concent 34, Red Cell Distribution Width 12.5, Platelet Count 290, Mean Platelet Volume 10.9, Immature Granulocyte % (Auto) 1, Neutrophils (%) (Auto) 64, Lymphocytes (%) (Auto) 21, Monocytes (%) (Auto) 11, Eosinophils (%) (Auto) 3, Basophils (%) (Auto) 0, Neutrophils # (Auto) 4.4, Lymphocytes # (Auto) 1.4, Monocytes # (Auto) 0.8, Eosinophils # (Auto) 0.2, Basophils # (Auto) 0.0, Immature Granulocyte # (Auto) 0.1, Sodium Level 137, Potassium Level 3.3L, Chloride Level 107, Carbon Dioxide Level 19L, Anion Gap 11, Blood Urea Nitrogen 14, Creatinine 0.75, Estimat Glomerular Filtration Rate > 60, BUN/Creatinine Ratio 19, Glucose Level 96, Calcium Level 7.2L, Corrected Calcium 8.3L, Total Bilirubin 1.1H, Aspartate Amino Transf (AST/SGOT) 63H, Alanine Aminotransferase (ALT/SGPT) 35, Alkaline Phosphatase 64, Total Protein 4.9L, Albumin 2.6L 08/10/20 15:15: Stool Occult Blood Immunoassay NEGATIVE 08/12/20 05:55: White Blood Count 7.3, Red Blood Count 2.74L, Hemoglobin 8.6L, Hematocrit 25L, Mean Corpuscular Volume 91, Mean Corpuscular Hemoglobin 31, Mean Corpuscular Hemoglobin Concent 35, Red Cell Distribution Width 13.1, Platelet Count 333, Mean Platelet Volume 10.3, Immature Granulocyte % (Auto) 1, Neutrophils (%) (Auto) 61, Lymphocytes (%) (Auto) 23, Monocytes (%) (Auto) 11, Eosinophils (%) (Auto) 3, Basophils (%) (Auto) 0, Neutrophils # (Auto) 4.5, Lymphocytes # (Auto) 1.7, Monocytes # (Auto) 0.8, Eosinophils # (Auto) 0.2, Basophils # (Auto) 0.0, Immature Granulocyte # (Auto) 0.1, Sodium Level 136, Potassium Level 3.3L, Chloride Level 105, Carbon Dioxide Level 21, Anion Gap 10, Blood Urea Nitrogen 12, Creatinine 0.71, Estimat Glomerular Filtration Rate > 60, BUN/Creatinine Ratio 17, Glucose Level 96, Calcium Level 7.4L, Corrected Calcium 8.5, Total Bilirubin 0.9, Aspartate Amino Transf (AST/SGOT) 38H, Alanine Aminotransferase (ALT/SGPT) 27, Alkaline Phosphatase 55, Total Protein 5.0L, Albumin 2.6L 08/17/20 06:20: White Blood Count 6.5, Red Blood Count 2.92L, Hemoglobin 9.2L, Hematocrit 28L, Mean Corpuscular Volume 95, Mean Corpuscular Hemoglobin 32, Mean Corpuscular Hemoglobin Concent 33, Red Cell Distribution Width 15.5H, Platelet Count 393, Mean Platelet Volume 10.6, Immature Granulocyte % (Auto) 1, Neutrophils (%) (Auto) 55, Lymphocytes (%) (Auto) 29, Monocytes (%) (Auto) 11, Eosinophils (%) (Auto) 3, Basophils (%) (Auto) 0, Neutrophils # (Auto) 3.6, Lymphocytes # (Auto) 1.9, Monocytes # (Auto) 0.7, Eosinophils # (Auto) 0.2, Basophils # (Auto) 0.0, Immature Granulocyte # (Auto) 0.1, Sodium Level 137, Potassium Level 3.1L, Chloride Level 102, Carbon Dioxide Level 26, Anion Gap 9, Blood Urea Nitrogen 7, Creatinine 0.73, Estimat Glomerular Filtration Rate > 60, BUN/Creatinine Ratio 10, Glucose Level 112H, Calcium Level 7.6L, Corrected Calcium 8.6, Total Bilirubin 0.5, Aspartate Amino Transf (AST/SGOT) 30, Alanine Aminotransferase (ALT/SGPT) 24, Alkaline Phosphatase 76, Total Protein 5.1L, Albumin 2.7L Pending Labs Laboratory Tests 08/08/20 04:47: White Blood Count 8.2, Red Blood Count 2.98, Hemoglobin 9.2, Hematocrit 27, Mean Corpuscular Volume 91, Mean Corpuscular Hemoglobin 31, Mean Corpuscular Hemoglobin Concent 34, Red Cell Distribution Width 12.4, Platelet Count 249, Mean Platelet Volume 10.9, Immature Granulocyte % (Auto) 1, Neutrophils (%) (Auto) 64, Lymphocytes (%) (Auto) 24, Monocytes (%) (Auto) 11, Eosinophils (%) (Auto) 1, Basophils (%) (Auto) 0, Neutrophils # (Auto) 5.2, Lymphocytes # (Auto) 1.9, Monocytes # (Auto) 0.9, Eosinophils # (Auto) 0.1, Basophils # (Auto) 0.0, Immature Granulocyte # (Auto) 0.0, Sodium Level 133, Potassium Level 3.6, Chloride Level 102, Carbon Dioxide Level 23, Anion Gap 8, Blood Urea Nitrogen 21, Creatinine 0.82, Estimat Glomerular Filtration Rate > 60, BUN/Creatinine Ratio 26, Glucose Level 104, Calcium Level 8.2, Corrected Calcium 9.2, Iron Level 19, Total Bilirubin 0.5, Aspartate Amino Transf (AST/SGOT) 39, Alanine Aminotransferase (ALT/SGPT) 26, Alkaline Phosphatase 42, Total Protein 5.3, Albumin 2.8 08/10/20 04:59: White Blood Count 6.9, Red Blood Count 2.78, Hemoglobin 8.7, Hematocrit 25, Mean Corpuscular Volume 91, Mean Corpuscular Hemoglobin 31, Mean Corpuscular Hemoglobin Concent 34, Red Cell Distribution Width 12.5, Platelet Count 290, Mean Platelet Volume 10.9, Immature Granulocyte % (Auto) 1, Neutrophils (%) (Auto) 64, Lymphocytes (%) (Auto) 21, Monocytes (%) (Auto) 11, Eosinophils (%) (Auto) 3, Basophils (%) (Auto) 0, Neutrophils # (Auto) 4.4, Lymphocytes # (Auto) 1.4, Monocytes # (Auto) 0.8, Eosinophils # (Auto) 0.2, Basophils # (Auto) 0.0, Immature Granulocyte # (Auto) 0.1, Sodium Level 137, Potassium Level 3.3, Chl oride Level 107, Carbon Dioxide Level 19, Anion Gap 11, Blood Urea Nitrogen 14, Creatinine 0.75, Estimat Glomerular Filtration Rate > 60, BUN/Creatinine Ratio 19, Glucose Level 96, Calcium Level 7.2, Corrected Calcium 8.3, Total Bilirubin 1.1, Aspartate Amino Transf (AST/SGOT) 63, Alanine Aminotransferase (ALT/SGPT) 35, Alkaline Phosphatase 64, Total Protein 4.9, Albumin 2.6 08/10/20 15:15: Stool Occult Blood Immunoassay NEGATIVE 08/12/20 05:55: White Blood Count 7.3, Red Blood Count 2.74, Hemoglobin 8.6, Hematocrit 25, Mean Corpuscular Volume 91, Mean Corpuscular Hemoglobin 31, Mean Corpuscular Hemoglobin Concent 35, Red Cell Distribution Width 13.1, Platelet Count 333, Mean Platelet Volume 10.3, Immature Granulocyte % (Auto) 1, Neutrophils (%) (Auto) 61, Lymphocytes (%) (Auto) 23, Monocytes (%) (Auto) 11, Eosinophils (%) (Auto) 3, Basophils (%) (Auto) 0, Neutrophils # (Auto) 4.5, Lymphocytes # (Auto) 1.7, Monocytes # (Auto) 0.8, Eosinophils # (Auto) 0.2, Basophils # (Auto) 0.0, Immature Granulocyte # (Auto) 0.1, Sodium Level 136, Potassium Level 3.3, Chloride Level 105, Carbon Dioxide Level 21, Anion Gap 10, Blood Urea Nitrogen 12, Creatinine 0.71, Estimat Glomerular Filtration Rate > 60, BUN/Creatinine Ratio 17, Glucose Level 96, Calcium Level 7.4, Corrected Calcium 8.5, Total Bilirubin 0.9, Aspartate Amino Transf (AST/SGOT) 38, Alanine Aminotransferase (ALT/SGPT) 27, Alkaline Phosphatase 55, Total Protein 5.0, Albumin 2.6 08/17/20 06:20: White Blood Count 6.5, Red Blood Count 2.92, Hemoglobin 9.2, Hematocrit 28, Mean Corpuscular Volume 95, Mean Corpuscular Hemoglobin 32, Mean Corpuscular Hemoglobin Concent 33, Red Cell Distribution Width 15.5, Platelet Count 393, Mean Platelet Volume 10.6, Immature Granulocyte % (Auto) 1, Neutrophils (%) (Auto) 55, Lymphocytes (%) (Auto) 29, Monocytes (%) (Auto) 11, Eosinophils (%) (Auto) 3, Basophils (%) (Auto) 0, Neutrophils # (Auto) 3.6, Lymphocytes # (Auto) 1.9, Monocytes # (Auto) 0.7, Eosinophils # (Auto) 0.2, Basophils # (Auto) 0.0, Immature Granulocyte # (Auto) 0.1, Sodium Level 137, Potassium Level 3.1, Chloride Level 102, Carbon Dioxide Level 26, Anion Gap 9, Blood Urea Nitrogen 7, Creatinine 0.73, Estimat Glomerular Filtration Rate > 60, BUN/Creatinine Ratio 10, Glucose Level 112, Calcium Level 7.6, Corrected Calcium 8.6, Total Bilirubin 0.5, Aspartate Amino Transf (AST/SGOT) 30, Alanine Aminotransferase (ALT/SGPT) 24, Alkaline Phosphatase 76, Total Protein 5.1, Albumin 2.7 Discharge Home Medications: Active Scripts Active Pantoprazole Sodium 40 Mg Tablet.dr 40 Mg PO DAILY Klor-Con M20 (Potassium Chloride) 20 Meq Tab.er.prt 20 Meq PO BID HYDROcodone/APAP 7.5/325 TAB (Acetaminophen/Hydrocodone Bitart) 1 Ea Tablet 1 Ea PO Q2HR PRN Aspirin EC (Aspirin) 81 Mg Tablet.dr 81 Mg PO DAILY Losartan Potassium 100 Mg Tablet 100 Mg PO DAILY Amlodipine Besylate 5 Mg Tablet 5 Mg PO DAILY Carvedilol 12.5 Mg Tablet 12.5 Mg PO BID Reported Coq-10 (Ubidecarenone) 100 Mg Capsule 100 Mg PO HS Ocuvite Adult 50 Plus Softgel (C,E,Zinc,Copper 11/Amxot3h/Lut) 1 Each Capsule 1 Each PO DAILY [Hylands Leg Cramp] 1 Ea PO HS Vitamin D3 (Cholecalciferol (Vitamin D3)) 25 Mcg Capsule 25 Mcg PO BID Red Yeast Rice 600 Mg Capsule 600 Mg PO BID Gabapentin 600 Mg Tablet 1,200 Mg PO HS TAKES 2 (600MG) TABS Gabapentin 600 Mg Tablet 600 Mg PO DAILY Instructions to patient/family Please see electronic discharge instructions given to patient. Diagnosis/Problems Diagnosis/Problems (1) Closed left hip fracture Status: Acute (2) History of DVT of lower extremity (3) Former smoker (4) Fibromyalgia (5) Neuropathy (6) Fall from slipping on ice Status: Acute (7) HTN (hypertension) Status: Chronic CHICHI KIM DO Aug 19, 2020 05:44
--- NOTE | 2020-08-19 05:44 | D/C HH Face to Face Order ---
D/C Face to Face Orders Reconcile Patient Problems Problems Reviewed?: Yes Instructions for Patient Home Health Patient Instructions/FollowUp: PCP 1 week Physician to follow Patient: Macarena Discharge Diet for Home: No Restrictions Patient Problems: Hip fracture Patient Data-Allergies,Ht & Wt Patient Allergies: Coded Allergies: morphine (Verified Allergy, Mild, 08/04/20) divalproex sodium (Verified Allergy, Unknown, 08/04/20) iodine (Verified Allergy, Unknown, 08/04/20) meloxicam (Verified Allergy, Unknown, 08/04/20) rosuvastatin (Verified Allergy, Unknown, 08/04/20) Home Health Need/Face to Face Date of Face to Face: Aug 19, 2020 Clinical Findings: Muscle weakness, Pain with ambulation, Unsteady gait I have seen Pt [id number]: Yes Discharged To: Home Diagnosis/Conditions: Hip fracture Patient is Homebound due to: Denisse fall risk due to instabilty, Muscle weakness, Pain w/ambulation Homebound Status Due to the above stated illness, injury or surgical procedure (medical condition or diagnosis) and associated clinical findings, the patient is homebound because of his/her inability to leave home except with aid of a supportive device and/or person AND leaving the home requires a considerable and taxing effort or is medically contraindicated. Pt req the following assistanc: Walker Home Health Nursing Orders Home Health Services Order: Nursing Services, Physical Therapy-Evaluate & Treat Home Health Infusion Therapy Line Start Date: Aug 10, 2020 Certify Stmt I certify that this patient is under my care and that I, a nurse practitioner or a physician; a sound assistant working with me, had a face to face encounter that - meets the physician face to face encounter requirements with this patient as dated. CHICHI KIM DO Aug 19, 2020 05:43
[2020-08-19 05:54] VITALS: BP 171/75
[2020-08-19] MEDS: CATHETER FLUSH 10 ML SYR IV SCH (06:17)
[2020-08-19] MEDS: ASPIRIN E.C. 81 MG (ECOTRIN) TAB PO SCH (08:20)
[2020-08-19] MEDS: IRON SUCROSE 200 MG/10 ML (VENOFER) VIAL IV SCH (08:20)
[2020-08-19] MEDS: CARVEDILOL 12.5 MG (COREG) TABLET PO SCH (08:20)
[2020-08-19] MEDS: LOSARTAN 100 MG (COZAAR) TABLET PO SCH (08:20)
[2020-08-19] MEDS: HYDROcodone/APAP 7.5 MG/325 MG (LORTAB, LORCET PLUS) TABLET PO PRN (08:20)
[2020-08-19] MEDS: ENOXAPARIN 40 MG/0.4 ML (LOVENOX) SYR SC SCH (08:20)
[2020-08-19] MEDS: KCL 20 MEQ TAB (K-DUR) PO SCH (08:20)
[2020-08-19] MEDS: amLODIPine 5 MG (NORVASC) TAB PO SCH (08:20)
[2020-08-19] MEDS: PANTOPRAZOLE 40 MG (PROTONIX) TAB PO SCH (08:20)
[2020-08-19] MEDS: polyethylene glycoL POWDER 17 GM (MIRALAX) PACK PO SCH (08:29)
[2020-08-19] MEDS: DOCUSATE SODIUM 100 MG (COLACE) CAP PO SCH (08:29)
[2020-08-19] MEDS: SENNOSIDES 8.6 MG (SENOKOT) TAB PO SCH (08:30)
--- NOTE | 2020-08-19 10:19 | Progress Note ---
Standard Progress Note Progress Notes/Assess & Plan Date Seen by a Provider: Aug 19, 2020 Time Seen by a Provider: 10:09 Progress/Assessment & Plan no complaints ambulating with PT L hip dressing in place. echymosis throughout no calf tenderness. Neg Ritesh's s/p L hip bipolar continue PT/OT Final Diagnosis no complaints incision clean and dry without erythema or warmth s/p L hip bipolar DC today FU two weeks MARC GARCIA MD Aug 19, 2020 10:19
[2020-08-19 11:04] VITALS: BP 171/75
--- NOTE | 2020-08-19 14:41 | Occ Therapy Progress Note ---
Therapy Progress Note Pt admits to ARU with L bipolar hemiarthroplasty. Pt's admitting QCs include max A with LB dressing/ footwear, min A showering and CGA toilet hygiene. Pt and OT staff work towards higher fx IND through ADL training, AE training, safety/ EC, fx activities and UE strengthening. Pt d/c's with all ADLs at IND excluding footwear/ UB/ LB dressing requiring s/u level. Pt d/c's home with spouse with recommendations of AE (hip kit). D/c OT at this time. MILKA MARCANO OTR Aug 19, 2020 14:41
--- NOTE | 2020-08-19 14:52 | Therapy Team Discharge Summary ---
Therapy Discharge Summary Discharge Recommendations Date of Discharge Aug 19, 2020 at 11:00 Physical Therapy Patient came to rehab following a left JOVANI. Upon evaluation patient performed bed mobility and supine <-> sit with min assist, sit <-> stand min assist, transfers CGA, car transfer min assist, ambulated 10' with a rolling walker with CGA (including 10' over an uneven surface), propelled a manual WC 20' with min assist, and went up and down 1 step using a rolling walker with min assist. Patient has been performing bed mobility and transfer training, balance and endurance training, functional strengthening, stair training, gait training, and education. Patient has made good progress and has met all of her liquefaction and regasification helper goals. Now, patient performs bed mobility and transfers with independence, car transfer independent, ambulates 150' with a rolling walker with independence (including 50' with at least 2 turns of 90 degrees and 10' over an uneven surface), and can go up and down 4 steps using 2 handrails with independence. Patient has discharged from this facility and will be discharged from PT at this time. Occupational Therapy Impaired Self-Care Skills PT Food Inspector Goals [facility] Goals PT [facility] Goals Time Frame: Aug 28, 2020 Roll Left to Right (QC): 6 Sit to Lying (QC): 6 Lying-Sitting on Side/Bed(QC): 6 Sit to Stand (QC): 6 Chair/[id number] Xfer(QC): 6 Car Transfer (QC): 6 Does the Patient Walk: Yes Walk 10 feet (QC): 6 Walk 10ft-Uneven Surface(QC): 6 Walk 50ft with 2 Turns (QC): 6 Walk 150 ft (QC): 6 Wheel 50 feet with 2 turns (QC: 9 1 Step (curb) (QC): 5 4 Steps (QC): 5 12 Steps (QC): 88 Picking up an Object (QC): 88 OT [facility] Goals [facility] Goals Time Frame: Aug 21, 2020 Eating (QC): 6 (met) Oral Hygiene (QC): 6 (met) Shower/Bathe Self (QC): 6 (met) Upper Body Dressing (QC): 6 (not met) Lower Body Dressing (QC): 6 (not met) On/Off Footwear (QC): 6 (not met) Toileting Hygiene (QC): 6 (met) Toilet/Commode Transfer (QC): 6 Additional Goals: 1-Demonstrate ADL Tasks, 2-Verbalize Understanding, 3- ImproveStrength/Papa 1=Demonstrate adherence to instructed precautions during ADL tasks. 2=Patient will verbalize/demonstrate understanding of assistive devices/modifi cations for ADL. 3=Patient will improve strength/tolerance for activity to enable patient to perform ADL's. STAN TORRES PT Aug 19, 2020 14:52
== END 2020-08-19 11:00 | disposition home health service (06) | DRG 561 ==
PROVIDERS: ADMIT Internal Medicine; ATTEND Internal Medicine
DX: S72.002D Fracture of unspecified part of neck of left femur, subsequent encounter for closed fracture with routine healing (principal); D64.9 Anemia, unspecified; E87.6 Hypokalemia; E78.00 Pure hypercholesterolemia, unspecified; I10 Essential (primary) hypertension; G62.9 Polyneuropathy, unspecified; K21.9 Gastro-esophageal reflux disease without esophagitis; K58.9 Irritable bowel syndrome, unspecified; M79.7 Fibromyalgia; F32.9 Major depressive disorder, single episode, unspecified; Z86.718 Personal history of other venous thrombosis and embolism; Z87.891 Personal history of nicotine dependence; Z88.6 Allergy status to analgesic agent; Z88.8 Allergy status to other drugs, medicaments and biological substances; W00.0XXD Fall on same level due to ice and snow, subsequent encounter
CPT/HCPCS: 36415; 74018; 76937; 80053; 82274; 83540; 85025